=== PATIENT | female | born 1935 | race Caucasian/White ===

== ENCOUNTER 2023-04-17 11:30 | Inpatient (IN) | payer MEDICARE ==
[2023-04-17] MEDS ORDERED: ACETAMINOPHEN TAB 500 MG TAB PO STA (12:36)
[2023-04-17] MEDS ORDERED: METOPROLOL TARTRATE 5 MG/5 ML VIAL IVP STA (12:37)
[2023-04-17] MEDS ORDERED: METOPROLOL TARTRATE 50 MG TAB PO STA (12:38)
[2023-04-17] MEDS ORDERED: SODIUM CHLORIDE 0.9% 1,000 ML IV STA (12:38)
--- NOTE | 2023-04-17 12:41 | ED ---
General Adult HPI - General Chief complaint: Weakness Stated complaint: Weakness Time Seen by Provider: 04/17/23 11:35 Source: patient, EMS Mode of arrival: EMS - History of Present Illness Initial comments: Dictation was produced using Loop dictation software. please excuse any grammatical, word or spelling errors. Chief Complaint: 87-year-old male past medical history of COPD, dyslipidemia and hypertension presents to the ER for cough sugars of breath generalized weakness History of Present Illness: 87-year-old female she has past medical history of COPD, dyslipidemia hypertension. His present illness obtained from EMS along with daughters at the bedside. Patient this morning started to feel ill with coughing episodes. She is also significantly weak. Daughter states that she felt warm to the touch. Patient complaining of fever cough and generalized weakness. No obvious sick contacts. Patient has been hospitalized in the past similar issue were when she becomes ill she has these accelerations of her heart rate. EMS noticed that patient was having seconds long episodes of tachycardia and clinical to the 170s change referred back to normal sinus rhythm. Patient has no history of A. fib. The ROS documented in this emergency department record has been reviewed and confirmed by me. Those systems with pertinent positive or negative responses have been documented in the HPI. All other systems are other negative and/or noncontributory. - Related Data Home Medications Medication Instructions Recorded Confirmed Albuterol Sulfate [Albuterol 2 puff INHALATION RT-Q4H PRN 04/17/23 04/17/23 Sulfate Hfa] Alendronate Sodium [Fosamax] 70 mg PO TU 04/17/23 04/17/23 Ferrous Sulfate [Feosol] 325 mg PO MOWEFR 04/17/23 04/17/23 Fluticasone/Umeclidin/Vilanter 1 puff INHALATION RT-DAILY 04/17/23 04/17/23 [Trelegy Ellipta 100-62.5-25] Losartan Potassium 100 mg PO DAILY 04/17/23 04/17/23 Magnesium(Unknown Dose) 1 tab PO DAILY 04/17/23 04/17/23 Multivitamin [Multivitamins Adult 2 tab PO DAILY 04/17/23 04/17/23 Gummies] Omeprazole 20 mg PO DAILY 04/17/23 04/17/23 Vitamin D3(Unknown Dose) 1 tab PO DAILY 04/17/23 04/17/23 hydroCHLOROthiazide 25 mg PO DAILY 04/17/23 04/17/23 Allergies Allergy/AdvReac Type Severity Reaction Status Date / Time Penicillins Allergy Rash/Hives Verified 04/17/23 13:00 Review of Systems ROS Statement: Those systems with pertinent positive or pertinent negative responses have been documented in the HPI. ROS Other: All systems not noted in ROS Statement are negative. Past Medical History Past Medical History: COPD, Hyperlipidemia, Hypertension History of Any Multi-Drug Resistant Organisms: None Reported Past Surgical History: Tonsillectomy Smoking Status: Never smoker Past Alcohol Use History: None Reported, Occasional Past Drug Use History: None Reported General Exam - General Exam Comments Initial Comments: PHYSICAL EXAM: General Impression: Alert and oriented x3, not in acute distress HEENT: Normocephalic atraumatic, extra-ocular movements intact, pupils equal and reactive to light bilaterally, mucous membranes moist. Cardiovascular: Heart regular rate and rhythm Chest: Able to complete full sentences, no retractions, no tachypnea Abdomen: abdomen soft, non-tender, non-distended, no organomegaly Musculoskeletal: Pulses present and equal in all extremities, no peripheral edema Motor: no focal deficits noted Neurological: CN II-XII grossly intact, no focal motor or sensory deficits noted Skin: Intact with no visualized rashes Psych: Normal affect and mood Course Vital Signs 04/17/23 11:48 Temperature 99.9 F H Pulse Rate 106 H Respiratory 19 Rate Blood Pressure 149/75 Medical Decision Making - Medical Decision Making Was pt. sent in by a medical professional or institution (, PA, [facility], urgent care, hospital, or longterm...) When possible be specific @ -No Did you speak to anyone other than the patient for history (EMS, parent, family, police, friend...)? What history was obtained from this source @ -No Did you review nursing and triage notes (agree or disagree)? Why? @ -I reviewed and agree with nursing and triage notes Were old charts reviewed (outside hosp., previous admission, EMS record, old EKG, old radiological studies, urgent care reports/EKG's, longterm records)? Report findings @ -No old charts were reviewed Differential Diagnosis (chest pain, altered mental status, abdominal pain women, abdominal pain men, vaginal bleeding, musculoskeletal, weakness, fever, dyspnea, syncope, headache, dizziness, GI bleed, back pain, seizure, CVA, palpatations, mental health)? @ -Differential Dyspnea: Coronary syndrome, arrhythmia, tamponade, asthma, COPD, pulmonary embolism, pneumonia, pneumothorax, pulmonary effusion, anaphylaxis, diabetic ketoacidosis, flailed chest, pulmonary contusion, diaphragmatic rupture, anemia, neuromuscular, this is not meant to be an all-inclusive list. EKG interpreted by me (3pts min.). @ -See above X-rays interpreted by me (1pt min.). @ -Chest x-ray shows multifocal pneumonia CT interpreted by me (1pt min.). @ -None done U/S interpreted by me (1pt. min.). @ -None done What testing was considered but not performed or refused? (CT, X-rays, U/S, labs)? Why? @ -None What meds were considered but not given or refused? Why? @ -None Did you discuss the management of the patient with other professionals (professionals i.e. , PA, [facility], lab, RT, psych nurse, manager social responsibility, insight leader, teacher, plain clothes police officer, skilled nursing case manager)? Give summary @ -Case discussed with hospitalist for admission Was smoking cessation discussed for >3mins.? @ -No Was critical care preformed (if so, how long)? @ -No Were there social determinants of health that impacted care today? How? (Homelessness, low income, unemployed, alcoholism, drug addiction, transportation, low edu. Level, literacy, decrease access to med. care, correction, rehab)? @ -No Was there de-escalation of care discussed even if they declined (Discuss DNR or withdrawal of care, Hospice)? DNR status @ -No What co-morbidities impacted this encounter? (DM, HTN, Smoking, COPD, CAD, Cancer, CVA, ARF, Chemo, Hep., AIDS, mental health diagnosis, sleep apnea, morbid obesity)? @ -None Was patient admitted / discharged? Hospital course, mention meds given and route, prescriptions, significant lab abnormalities, going to OR and other pertinent info. @ -87-year-old female with past medical history of COPD presents to the ER for weakness, cough shortness of breath palpitations. Arise the EMS. Vital signs upon arrival shows low grade temperature 9.9, heart rate 106. Rest of vital signs within acceptable limits. Patient would have these episodic accelerations of heart rate into the 170s. Patient started on metoprolol with adequate rate control. Some clear if these accelerations are episodes of A. fib with RVR or SVT. Laboratory evaluation obtained leukocytosis of 19.0, metabolic panel within acceptable limits. Urinalysis is negative. Viral testing is negative. X-ray shows multilobar pneumonia. Patient started antibiotics. Will be admitted for further care monitoring. Undiagnosed new problem with uncertain prognosis? @ -No Drug Therapy requiring intensive monitoring for toxicity (Heparin, Nitro, Insulin, Cardizem)? @ -No Were any procedures done? @ -No Diagnosis/symptom? Acute, or Chronic, or Acute on Chronic? Uncomplicated (without systemic symptoms) or Complicated (systemic symptoms)? @ -Community acquired pneumonia Side effects of treatment? @ -No Exacerbation, Progression, or Severe Exacerbation? @ -No Poses a threat to life or bodily function? How? (Chest pain, USA, PR, pneumonia, PE, COPD, DKA, ARF, appy, cholecystitis, CVA, Diverticulitis, Homicidal, Suicidal, threat to staff... and all critical care pts) @ -yes - Lab Data Result diagrams: 04/17/23 13:08 04/17/23 13:08 Lab Results 04/17/23 04/17/23 04/17/23 Range/Units 13:08 13:08 13:08 WBC 19.0 H (3.8-10.6) k/uL RBC 3.91 (3.80-5.40) m/uL Hgb 11.9 (11.4-16.0) gm/dL Hct 36.1 (34.0-46.0) % MCV 92.4 (80.0-100.0) fL MCH 30.4 (25.0-35.0) pg MCHC 32.9 (31.0-37.0) g/dL RDW 12.9 (11.5-15.5) % Plt Count 139 L (150-450) k/uL MPV 8.1 Neutrophils % 93 % Lymphocytes % 2 % Monocytes % 4 % Eosinophils % 0 % Basophils % 0 % Neutrophils # 17.6 H (1.3-7.7) k/uL Lymphocytes # 0.4 L (1.0-4.8) k/uL Monocytes # 0.8 (0-1.0) k/uL Eosinophils # 0.1 (0-0.7) k/uL Basophils # 0.0 (0-0.2) k/uL Hypochromasia Slight Sodium 131 L (137-145) mmol/L Potassium 3.8 (3.5-5.1) mmol/L Chloride 99 (98-107) mmol/L Carbon Dioxide 25 (22-30) mmol/L Anion Gap 7 mmol/L BUN 18 H (7-17) mg/dL Creatinine 0.50 L (0.52-1.04) mg/dL Est GFR (CKD-EPI)AfAm >90 (>60 ml/min/1.73 sqM) Est GFR (CKD-EPI)NonAf 87 (>60 ml/min/1.73 sqM) Glucose 110 H (74-99) mg/dL Plasma Lactic Acid Jaime (0.7-2.0) mmol/L Calcium 7.6 L (8.4-10.2) mg/dL Magnesium 1.7 (1.6-2.3) mg/dL Total Bilirubin 0.6 (0.2-1.3) mg/dL AST 31 (14-36) U/L ALT 17 (4-34) U/L Alkaline Phosphatase 71 (38-126) U/L Total Protein 5.2 L (6.3-8.2) g/dL Albumin 2.9 L (3.5-5.0) g/dL Urine Color Colorless Urine Appearance Cloudy H (Clear) Urine pH 7.5 (5.0-8.0) Ur Specific [place] 1.012 (1.001-1.035) Urine Protein Negative (Negative) Urine Glucose (UA) Negative (Negative) Urine Ketones Negative (Negative) Urine Blood Trace H (Negative) Urine Nitrite Negative (Negative) Urine Bilirubin Negative (Negative) Urine Urobilinogen <2.0 (<2.0) mg/dL Ur Leukocyte Esterase Negative (Negative) Urine RBC 2 (0-5) /hpf Urine WBC 4 (0-5) /hpf Ur Squamous Epith Cells <1 (0-4) /hpf Urine Bacteria Occasional H (None) /hpf Urine Mucus Rare H (None) /hpf Influenza Type A (PCR) (Not Detectd) Influenza Type B (PCR) (Not Detectd) RSV (PCR) (Not Detectd) SARS-CoV-2 (PCR) (Not Detectd) 04/17/23 04/17/23 Range/Units 13:08 13:08 WBC (3.8-10.6) k/uL RBC (3.80-5.40) m/uL Hgb (11.4-16.0) gm/dL Hct (34.0-46.0) % MCV (80.0-100.0) fL MCH (25.0-35.0) pg MCHC (31.0-37.0) g/dL RDW (11.5-15.5) % Plt Count (150-450) k/uL MPV Neutrophils % % Lymphocytes % % Monocytes % % Eosinophils % % Basophils % % Neutrophils # (1.3-7.7) k/uL Lymphocytes # (1.0-4.8) k/uL Monocytes # (0-1.0) k/uL Eosinophils # (0-0.7) k/uL Basophils # (0-0.2) k/uL Hypochromasia Sodium (137-145) mmol/L Potassium (3.5-5.1) mmol/L Chloride (98-107) mmol/L Carbon Dioxide (22-30) mmol/L Anion Gap mmol/L BUN (7-17) mg/dL Creatinine (0.52-1.04) mg/dL Est GFR (CKD-EPI)AfAm (>60 ml/min/1.73 sqM) Est GFR (CKD-EPI)NonAf (>60 ml/min/1.73 sqM) Glucose (74-99) mg/dL Plasma Lactic Acid Jaime 0.9 (0.7-2.0) mmol/L Calcium (8.4-10.2) mg/dL Magnesium (1.6-2.3) mg/dL Total Bilirubin (0.2-1.3) mg/dL AST (14-36) U/L ALT (4-34) U/L Alkaline Phosphatase (38-126) U/L Total Protein (6.3-8.2) g/dL Albumin (3.5-5.0) g/dL Urine Color Urine Appearance (Clear) Urine pH (5.0-8.0) Ur Specific [place] (1.001-1.035) Urine Protein (Negative) Urine Glucose (UA) (Negative) Urine Ketones (Negative) Urine Blood (Negative) Urine Nitrite (Negative) Urine Bilirubin (Negative) Urine Urobilinogen (<2.0) mg/dL Ur Leukocyte Esterase (Negative) Urine RBC (0-5) /hpf Urine WBC (0-5) /hpf Ur Squamous Epith Cells (0-4) /hpf Urine Bacteria (None) /hpf Urine Mucus (None) /hpf Influenza Type A (PCR) Not Detected (Not Detectd) Influenza Type B (PCR) Not Detected (Not Detectd) RSV (PCR) Not Detected (Not Detectd) SARS-CoV-2 (PCR) Not Detected (Not Detectd) Disposition Clinical Impression: Pneumonia Disposition: ADMITTED IP TO THIS HOSP Condition: Fair Referrals: None,Stated [REFERRING] - 1-2 days Decision Time: 14:42
[2023-04-17 14:00] LABS: Basophils % (A) 0 %; Eosinophils # (A) 0.1 k/uL (0-0.7); Eosinophils % (A) 0 %; HCT 36.1 % (34.0-46.0); HGB 11.9 gm/dL (11.4-16.0); Hypochromasia Slight; Lymphocytes # (A) 0.4 k/uL (1.0-4.8); Lymphocytes % (A) 2 %; MCH 30.4 pg (25.0-35.0); MCHC 32.9 g/dL (31.0-37.0); MCV 92.4 fL (80.0-100.0); Mean Platelet Volume 8.1; Monocytes # (A) 0.8 k/uL (0-1.0); Monocytes % (A) 4 %; Neutrophils # (A) 17.6 k/uL (1.3-7.7); Neutrophils % (A) 93 %; Platelet Count 139 k/uL (150-450); RBC 3.91 m/uL (3.80-5.40); RDW 12.9 % (11.5-15.5)
[2023-04-17 14:03] LABS: Appearance,Urine Cloudy (Clear); Bacteria,Urine Occasional /hpf; Bilirubin,Urine Negative (Negative); Blood,Urine Trace (Negative); Color,Urine Colorless; Glucose,Urine (UA) Negative (Negative); Ketones,Urine Negative (Negative); Leukocyte Esterase,Urine Negative (Negative); Mucus,Urine Rare /hpf; Nitrite,Urine Negative (Negative); PH, Urine 7.5 (5.0-8.0); Protein,Urine Negative (Negative); RBC,Urine 2 /hpf (0-5); Specific Gravity,Urine 1.012 (1.001-1.035); Squamous Epithelial Cell,Urine <1 /hpf (0-4); Urobilinogen,Urine <2.0 mg/dL (<2.0); WBC,Urine 4 /hpf (0-5)
[2023-04-17 14:12] LABS: ALT 17 U/L (4-34); AST 31 U/L (14-36); African American GFR (CKD) >90 (>60 ml/min/1.73 sqM); Albumin 2.9 g/dL (3.5-5.0); Alkaline Phosphatase 71 U/L (38-126); Anion Gap 7 mmol/L; Blood Urea Nitrogen 18 mg/dL (7-17); Calcium 7.6 mg/dL (8.4-10.2); Carbon Dioxide 25 mmol/L (22-30); Chloride 99 mmol/L (98-107); Glucose 110 mg/dL (74-99); Magnesium 1.7 mg/dL (1.6-2.3); Non-African American GFR(CKD) 87 (>60 ml/min/1.73 sqM); Potassium 3.8 mmol/L (3.5-5.1); Sodium 131 mmol/L (137-145); Total Bilirubin 0.6 mg/dL (0.2-1.3); Total Protein 5.2 g/dL (6.3-8.2)
--- NOTE | 2023-04-17 14:18 | XR ---
EXAMINATION TYPE: XR chest 2V DATE OF EXAM: 04/17/2023 COMPARISON: None HISTORY: 87-year-old female with cough and weakness TECHNIQUE: AP and lateral views FINDINGS: Heart borderline enlarged. Diffuse interstitial density. Mild hyperinflation. There is a rounded retr ocardiac density. IMPRESSION: 1. COPD. Prominent interstitial densities could reflect superimposed acute bronchitis or atypical/COV ID pneumonia. Clinically correlate. 2. There appears to be an underlying moderate to large hiatal hernia.
[2023-04-17] MEDS ORDERED: AZITHROMYCIN 500 MG in SODIUM CHLORIDE 0.9% 250 ML IVPB STA (14:21)
[2023-04-17] MEDS ORDERED: cefTRIAXone IN SWFI 1,000 MG/10 ML SYRINGE IVP STA (14:21)
[2023-04-17] MEDS ORDERED: PNEUMONIA PROTOCOL UTILIZED 1 EACH MISC PO PRN (14:24)
[2023-04-17] MEDS ORDERED: ENOXAPARIN 30 MG/0.3 ML SYRINGE SQ SCH (17:15)
--- NOTE | 2023-04-17 17:55 | P.CNPUL ---
History of Present Illness Consult date: 04/17/23 Reason for consult: dyspnea, COPD History of present illness: There is an 87-year-old female patient with known history of oxygen dependent COPD with a living in [place] and she has been seeing Dr. Jac Deleon regarding her COPD and the patient will maintain on Trelegy Ellipta one inhalation daily and it'll HFA on an as-needed basis. Around 6 months ago she was hospitalized at [place] and that showed where she was treated for UTI and suspected pneumonia. The patient was given broad-spectrum antibiotics and ultimately she was discharged home. No history of any cardiac disease. She presented to us with generalized weakness, cough, congestion, shortness of breath and increased wheezing. The chest x-ray shows a hiatal hernia and increased interstitial prominence and the patient also had some leukocytosis. She was found to be feverish at home and her current temperature is 99.9. She is hemodynamically stable. No altered mentation. She is hard of hearing. In the emergency, the patient went into atrial fibrillation with rapid ventricular response. The patient was treated accordingly and her current rhythm is back into sinus with frequent PACs. She was started on IV fluids and the patient was given a liter bolus. She was started on a combination of Rocephin and Zithromax. No focal neurological deficit. No nausea or vomiting. No abdominal pain. No aspiration. Maintain on Prilosec on outpatient basis. No previous history of cardiac arrhythmias. No history of any congestion heart failure. Review of Systems Constitutional: Reports fatigue, Reports fever, Reports weakness Eyes: denies as per HPI, denies blurred vision, denies bulging eye, denies decreased vision, denies diplopia, denies discharge, denies dry eye, denies irritation, denies itching, denies pain, denies photophobia, denies loss of peripheral vision, denies loss of vision, denies tunnel vision/blind spots Ears: deny: decreased hearing, ear discharge, earache, tinnitus Ears, nose, mouth and throat: Reports as per HPI Breasts: absent: as per HPI, change in shape, gynecomastia, masses, nipple discharge, pain, skin changes, swelling Cardiovascular: Reports decreased exercise tolerance, Reports dyspnea on exertion Respiratory: Reports cough, Reports dyspnea, Reports home oxygen, Reports wheezing Gastrointestinal: Reports as per HPI Menstruation: Reports as per HPI Musculoskeletal: Reports as per HPI Musculoskeletal: absent: ankle pain, ankle stiffness, ankle swelling Integumentary: Reports as per HPI Neurological: Reports as per HPI Psychiatric: Reports as per HPI Endocrine: Reports as per HPI Hematologic/Lymphatic: Reports as per HPI Allergic/Immunologic: Reports as per HPI Past Medical History Past Medical History: COPD, Hyperlipidemia, Hypertension History of Any Multi-Drug Resistant Organisms: None Reported Past Surgical History: Tonsillectomy Smoking Status: Never smoker Past Alcohol Use History: None Reported, Occasional Past Drug Use History: None Reported Medications and Allergies Home Medications Medication Instructions Recorded Confirmed Type Albuterol Sulfate [Albuterol 2 puff INHALATION RT-Q4H PRN 04/17/23 04/17/23 History Sulfate Hfa] Alendronate Sodium [Fosamax] 70 mg PO TU 04/17/23 04/17/23 History Ferrous Sulfate [Feosol] 325 mg PO MOWEFR 04/17/23 04/17/23 History Fluticasone/Umeclidin/Vilanter 1 puff INHALATION RT-DAILY 04/17/23 04/17/23 History [Trelegy Ellipta 100-62.5-25] Losartan Potassium 100 mg PO DAILY 04/17/23 04/17/23 History Magnesium(Unknown Dose) 1 tab PO DAILY 04/17/23 04/17/23 History Multivitamin [Multivitamins Adult 2 tab PO DAILY 04/17/23 04/17/23 History Gummies] Omeprazole 20 mg PO DAILY 04/17/23 04/17/23 History Vitamin D3(Unknown Dose) 1 tab PO DAILY 04/17/23 04/17/23 History hydroCHLOROthiazide 25 mg PO DAILY 04/17/23 04/17/23 History Allergies Allergy/AdvReac Type Severity Reaction Status Date / Time Penicillins Allergy Rash/Hives Verified 04/17/23 13:00 Physical Exam Vitals: Vital Signs Temp Pulse Resp BP 04/17/23 11:48 99.9 F H 106 H 19 149/75 Intake and Output 04/17/23 04/17/23 04/17/23 06:59 14:59 22:59 Other: Weight 65.771 kg Obese, calm and comfortable not acute distress, currently on 2 L of oxygen by nasal cannula Head exam was generally normal. There was no scleral icterus or corneal arcus. Mucous membranes were moist. Neck was supple and without jugular venous distension, thyromegaly, or carotid bruits. Carotids were easily palpable bilaterally. There was no adenopathy. Lungs sounds are diminished bilaterally along with scattered expiratory wheezes throughout the lung wright and the breath sounds are quite diminished in lung bases bilaterally Cardiac exam revealed the PMI to be normally situated and sized. The rhythm was regular and no extrasystoles were noted during several minutes of auscultation. The first and second heart sounds were normal and physiologic splitting of the second heart sound was noted. There were no murmurs, rubs, clicks, or gallops. Abdominal exam revealed normal bowel sounds. The abdomen was soft, non-tender, and without masses, organomegaly, or appreciable enlargement of the abdominal aorta. Examination of the extremities revealed easily palpable radial, femoral and pedal pulses. There was no cyanosis, clubbing or edema. Examination of the skin revealed no evidence of significant rashes, suspicious appearing nevi or other concerning lesions. Results - Laboratory Findings CBC and BMP: 04/17/23 13:08 04/17/23 13:08 Abnormal lab findings: Abnormal Labs 04/17/23 04/17/23 04/17/23 13:08 13:08 13:08 WBC 19.0 H Plt Count 139 L Neutrophils # 17.6 H Lymphocytes # 0.4 L Sodium 131 L BUN 18 H Creatinine 0.50 L Glucose 110 H Calcium 7.6 L Total Protein 5.2 L Albumin 2.9 L Urine Appearance Cloudy H Urine Blood Trace H Urine Bacteria Occasional H Urine Mucus Rare H - Diagnostic Findings Chest x-ray: image reviewed Assessment and Plan Plan: Acute exacerbation of COPD with secondary shortness of breath. Rule out atypical pneumonia. Rule out tracheobronchitis. The viral screening was negative. Chest x-ray revealing a hiatal hernia. No consolidation or airspace disease Advanced COPD with chronic hypoxic respiratory failure maintained on O2, also maintain on Trelegy Ellipta on outpatient basis Low-grade fever currently under investigation Leukocytosis, on that investigation Paroxysmal A. fib, current rhythm is sinus Obesity Hypertension Hyperlipidemia Plan Check pro calcitonin level Check pro BNP level Check troponins Check echocardiogram Agree on Rocephin and Zithromax We'll start the patient on DuoNeb the blood treatments [id number] and IV Solu-Medrol 60 mg every 6 hours Lovenox 40 prophylaxis Titrate oxygen flow to maintain a saturation above 90% We'll continue to follow
[2023-04-17] MEDS: IPRATROPIUM-ALBUTEROL 3 ML NEB INHALATION SCH (20:08)
[2023-04-17] MEDS: ENOXAPARIN 40 MG/0.4 ML SYRINGE SQ SCH (20:28)
[2023-04-17] MEDS: methylPREDNISolone SOD SUCCI 125 MG/2 ML VIAL IV SCH ×2 (20:29→23:59)
[2023-04-18] MEDS: methylPREDNISolone SOD SUCCI 125 MG/2 ML VIAL IV SCH ×4 (05:52→23:31)
[2023-04-18] MEDS: IPRATROPIUM-ALBUTEROL 3 ML NEB INHALATION SCH ×4 (07:57→21:00)
[2023-04-18] MEDS ORDERED: NON FORMULARY DRUG (Fluticasone/Umeclidin/Vilanter [Trelegy Ellipta 100-62.5-25] 1 EACH Bl INHALATION SCH (08:00)
--- NOTE | 2023-04-18 09:04 | XR ---
EXAMINATION TYPE: XR chest 1V portable DATE OF EXAM: 04/18/2023 Comparison: 04/17/2023 Clinical History: 87-year-old female follow-up pneumonia Findings: Heart mildly enlarged. Underlying dextro convex scoliosis thoracolumbar junction. Rounded retrocardia c density suggesting at least a moderate-sized hiatal hernia. Hyperinflation with mild interstitial d ensity. Persistent patchy peripheral bibasilar opacities. Impression: 1. COPD, scoliosis, borderline to mild cardiomegaly, underlying hiatal hernia at least moderate in si ze, similar interstitial changes. 2. The interstitial changes are overall less pronounced but the focal patchy bibasilar infiltrates ar e more pronounced.
[2023-04-18] MEDS: METOPROLOL TARTRATE 25 MG TAB PO SCH ×2 (09:10→21:13)
[2023-04-18] MEDS: ENOXAPARIN 40 MG/0.4 ML SYRINGE SQ SCH (09:10)
--- NOTE | 2023-04-18 11:04 | P.CRDCN ---
History of Present Illness History of present illness: HISTORY OF PRESENT ILLNESS: This is a 87-year-old female with a past medical history significant for hypertension. Patient does not follow with a advanced practice registered nurse. We have been asked to see the patient in consultation for arrhythmia. Patient examined at the bedside. Patient presented to the hospital with a chief complaint of shortness of breath. She states she's been feeling short of breath for the past few days. She denies any chest pain or pressure. She denies any palpitations. According to the ER note, the patient was found to be tachycardic in route to the hospital with a heart rate in the 170s. There are no telemetry tracings available for review and no EKG completed at the time of evaluation. It is unknown what type of arrhythmia the patient was having at that time. The patient denies any history of arrhythmias including atrial fibrillation. She is maintaining sinus mechanism at the time of examination. * Chest xray COPD, scoliosis, borderline to mild cardiomegaly, hiatal hernia at least moderate in size, similar interstitial changes. Interstitial changes are overall less pronounced but the focal patchy bibasilar infiltrates are more pronounced. * Laboratory data: W BC 19.0. ProBNP 1460. Troponin 0.063. * Current home cardiac medications include losartan 100 mg daily and hydrochlorothiazide 25 mg daily * No previous echocardiogram available for review REVIEW OF SYSTEMS: At the time of my exam: CONSTITUTIONAL: Denies fever or chills. HEENT: Denies blurred vision, vision changes, or eye pain. Denies hemoptysis CARDIOVASCULAR: Denies chest pain. Denies orthopnea. Denies PND. Denies palpitations RESPIRATORY: Denies shortness of breath. GASTROINTESTINAL: Denies abdominal pain. Denies nausea or vomiting. HEMATOLOGIC: Denies bleeding disorders. GENITOURINARY: Denies any blood in urine. SKIN: Denies pruitis. Denies rash. PHYSICAL EXAM: VITAL SIGNS: Reviewed. GENERAL: Well-developed in no acute distress. HEENT: Head is normocephalic. Pupils are equal, round. Sclerae anicteric. Mucous membranes of the mouth are moist. Neck supple. No JVD or thyromegaly LUNGS: Respirations even and unlabored. Lungs essentially clear to auscultation bilaterally. HEART: Regular rate and rhythm. S1 and S2 heard. ABDOMEN: Soft. Nondistended. Nontender. EXTREMITIES: Normal range of motion. No clubbing or cyanosis. Peripheral pulses intact. No lower extremity edema NEUROLOGIC: Awake and alert. Oriented x 3. ASSESSMENT: Shortness of breath Acute exacerbation of COPD Chronic hypoxic respiratory failure on home oxygen Possible pneumonia Leukocytosis with low-grade fever Tachycardia, unclear of rhythm as no telemetry tracings or EKG are available for review, patient denies history of atrial fibrillation Abnormal troponin, no evidence of acute coronary syndrome, may be secondary to type II ID secondary to oxygen supply demand mismatch Hypertension PLAN: Obtain 2-D echo to assess cardiac structure and function Obtain EKG Continue telemetry monitoring to assess for any arrhythmias. Patient currently in sinus mechanism. Patient denies a history of atrial fibrillation. Begin metoprolol tartrate 25 mg twice a day Further recommendations pending patient's course Nurse practitioner note has been reviewed by physician. Signing provider agrees with the documented findings, assessment, and plan of care. Past Medical History Past Medical History: COPD, Hyperlipidemia, Hypertension History of Any Multi-Drug Resistant Organisms: None Reported Past Surgical History: Tonsillectomy Past Anesthesia/Blood Transfusion Reactions: No Reported Reaction Past Psychological History: No Psychological Hx Reported Smoking Status: Former smoker Past Alcohol Use History: Occasional Past Drug Use History: None Reported Medications and Allergies Home Medications Medication Instructions Recorded Confirmed Type Albuterol Sulfate [Albuterol 2 puff INHALATION RT-Q4H PRN 04/17/23 04/17/23 History Sulfate Hfa] Alendronate Sodium [Fosamax] 70 mg PO TU 04/17/23 04/17/23 History Ferrous Sulfate [Feosol] 325 mg PO MOWEFR 04/17/23 04/17/23 History Fluticasone/Umeclidin/Vilanter 1 puff INHALATION RT-DAILY 04/17/23 04/17/23 History [Trelegy Ellipta 100-62.5-25] Losartan Potassium 100 mg PO DAILY 04/17/23 04/17/23 History Magnesium(Unknown Dose) 1 tab PO DAILY 04/17/23 04/17/23 History Multivitamin [Multivitamins Adult 2 tab PO DAILY 04/17/23 04/17/23 History Gummies] Omeprazole 20 mg PO DAILY 04/17/23 04/17/23 History Vitamin D3(Unknown Dose) 1 tab PO DAILY 04/17/23 04/17/23 History hydroCHLOROthiazide 25 mg PO DAILY 04/17/23 04/17/23 History Allergies Allergy/AdvReac Type Severity Reaction Status Date / Time Penicillins Allergy Rash/Hives Verified 04/17/23 13:00 Physical Exam Vitals: Vital Signs Temp Pulse Pulse Resp BP BP Pulse Ox 04/18/23 09:05 97.8 F 85 18 114/71 96 04/18/23 08:18 76 04/18/23 07:58 72 04/18/23 04:00 98.6 F 80 16 107/85 99 04/18/23 00:00 98.7 F 88 16 138/81 95 04/17/23 23:00 99.0 F 98 20 136/74 95 04/17/23 20:19 88 04/17/23 20:08 90 04/17/23 20:00 94 20 139/78 96 04/17/23 11:48 99.9 F H 106 H 19 149/75 Intake and Output 04/17/23 04/18/23 04/18/23 22:59 06:59 14:59 Intake Total 540 178 Output Total 400 350 Balance 140 -172 Intake: IV 10 Invasive Line 1 10 Intake, IV Titration 50 Amount cefTRIAXone 2 gm In 50 Sodium Chloride 0.9% 50 ml @ 100 mls/hr IVPB Q24HR [facility] Rx#:[id number] Oral 540 118 Output: Urine 400 350 Other: Voiding Method Bedside Commode Bedside Commode # Voids 1 1 Weight 62 kg Results 04/17/23 13:08 04/17/23 13:08 Cardiac Enzymes 04/17/23 04/17/23 Range/Units 13:08 17:21 AST 31 (14-36) U/L Troponin I 0.063 H* (0.000-0.034) ng/mL CBC 04/17/23 Range/Units 13:08 WBC 19.0 H (3.8-10.6) k/uL RBC 3.91 (3.80-5.40) m/uL Hgb 11.9 (11.4-16.0) gm/dL Hct 36.1 (34.0-46.0) % Plt Count 139 L (150-450) k/uL Comprehensive Metabolic Panel 04/17/23 Range/Units 13:08 Sodium 131 L (137-145) mmol/L Potassium 3.8 (3.5-5.1) mmol/L Chloride 99 (98-107) mmol/L Carbon Dioxide 25 (22-30) mmol/L BUN 18 H (7-17) mg/dL Creatinine 0.50 L (0.52-1.04) mg/dL Glucose 110 H (74-99) mg/dL Calcium 7.6 L (8.4-10.2) mg/dL AST 31 (14-36) U/L ALT 17 (4-34) U/L Alkaline Phosphatase 71 (38-126) U/L Total Protein 5.2 L (6.3-8.2) g/dL Albumin 2.9 L (3.5-5.0) g/dL Current Medications Generic Name Dose Route Start Last Admin Trade Name Freq PRN Reason Stop Dose Admin Albuterol/Ipratropium 3 ml 04/17/23 20:00 04/18/23 07:57 Ipratropium-Albuterol 3 Ml Neb INHALATION 3 ml RT-QID JENISE Administration Azithromycin 500 mg 04/18/23 14:00 Azithromycin 500 Mg Tab PO 04/19/23 14:01 DAILY@1400 JENISE Protocol Enoxaparin Sodium 40 mg 04/17/23 18:45 04/18/23 09:10 Enoxaparin 40 Mg/0.4 Ml Syringe SQ 40 mg DAILY JENISE Administration Ceftriaxone Sodium 2 gm/ 50 mls @ 100 mls/hr 04/18/23 09:00 04/18/23 09:09 Sodium Chloride IVPB 04/21/23 09:29 100 mls/hr Q24HR JENISE Administration Protocol Methylprednisolone Sodium Succinate 60 mg 04/17/23 18:00 04/18/23 05:52 Methylprednisolone Sod Succi 125 Mg/2 Ml Vial IV 60 mg Q6HR JENISE Administration Metoprolol Tartrate 25 mg 04/18/23 09:00 04/18/23 09:10 Metoprolol Tartrate 25 Mg Tab PO 25 mg BID JENISE Administration Miscellaneous Information 1 each 04/17/23 14:24 Pneumonia Protocol Utilized 1 Each Misc PO ONCE PRN Per Protocol Intake and Output 04/17/23 04/18/23 04/18/23 22:59 06:59 14:59 Intake Total 540 178 Output Total 400 350 Balance 140 -172 Intake: IV 10 Invasive Line 1 10 Intake, IV Titration 50 Amount cefTRIAXone 2 gm In 50 Sodium Chloride 0.9% 50 ml @ 100 mls/hr IVPB Q24HR [facility] Rx#:[id number] Oral 540 118 Output: Urine 400 350 Other: Voiding Method Bedside Commode Bedside Commode # Voids 1 1 Weight 62 kg 04/17/23 13:08 04/17/23 13:08
[2023-04-18] MEDS: LOSARTAN 50 MG TAB PO SCH (11:07)
[2023-04-18] MEDS: AZITHROMYCIN 500 MG TAB PO SCH (11:07)
[2023-04-18] MEDS: MULTIVITAMINS, THERA 1 EACH TAB PO SCH (11:07)
[2023-04-18] MEDS: FERROUS SULFATE 325 MG TAB PO SCH (11:07)
[2023-04-18] MEDS: PANTOPRAZOLE 40 MG TABLET PO SCH (11:11)
--- NOTE | 2023-04-18 11:49 | CA ---
Transthoracic Echo Report Name: Joan Farmer Age: 87 Gender: F : 1935 Exam Date: 04/18/2023 08:11 Exam Location: [facility] Ht (in): 57 Wt (lb): 145 Ordering Physician: Emma Cuello MD Attending/Referring Phys: Reclamation Supervisor Tran Dockery [facility] Procedure CPT: Indications: chf Cardiac Hx: Technical Quality: Fair Contrast 1: Total Dose (mL): Contrast 2: Total Dose (mL): MEASUREMENTS (Male / Female) Normal Values 2D ECHO LV Diastolic Diameter PLAX 4.5 cm 4.2 - 5.9 / 3.9 - 5.3 cm LV Systolic Diameter PLAX 2.7 cm IVS Diastolic Thickness 0.8 cm 0.6 - 1.0 / 0.6 - 0.9 cm LVPW Diastolic Thickness 0.9 cm 0.6 - 1.0 / 0.6 - 0.9 cm LV Relative Wall Thickness 0.4 LVOT Diameter 2.0 cm Ascending Aorta Diameter 3.6 cm M-MODE Aortic Root Diameter MM 2.3 cm LA Systolic Diameter MM 4.7 cm LA Ao Ratio MM 2.0 AV Cusp Separation MM 1.2 cm DOPPLER AV Peak Velocity 188.1 cm/s AV Peak Gradient 14.2 mmHg AV Mean Velocity 120.8 cm/s AV Mean Gradient 7.0 mmHg AV Velocity Time Integral 34.0 cm LVOT Peak Velocity 142.6 cm/s LVOT Peak Gradient 8.1 mmHg LVOT Velocity Time Integral 28.1 cm LVOT Stroke Volume 87.3 cm??? LVOT Stroke Volume Index 55.7 ml/m??? LVOT Cardiac Index 4797.0 cm???/min???m??? AV Area Cont Eq vti 2.6 cm??? AV Area Cont Eq pk 2.4 cm??? Mitral E Point Velocity 105.8 cm/s Mitral A Point Velocity 76.7 cm/s Mitral E to A Ratio 1.4 MV Deceleration Time 198.6 ms LV E' Lateral Velocity 4.6 cm/s Mitral E to LV E' Lateral Ratio 22.8 LV E' Septal Velocity 5.1 cm/s Mitral E to LV E' Septal Ratio 20.8 TR Peak Velocity 278.6 cm/s TR Peak Gradient 31.0 mmHg Right Atrial Pressure 15.0 mmHg Pulmonary Artery Systolic Pressu 46.0 mmHg Right Ventricular Systolic Press 46.0 mmHg FINDINGS Left Ventricle Left ventricular wall thickness normal. Left ventricular cavity size normal. Normal left ventricular systolic function with no obvious regional wall motion abnormalities. Left ventricular ejection fraction is estimated at 60-65%. Right Ventricle Normal right ventricular size and function. Moderate pulmonary hypertension. Right Atrium Moderate right atrial dilatation. Left Atrium Moderate left atrial dilatation. Mitral Valve Mitral valve thickened. Mitral annular calcification. Moderate mitral regurgitation. Aortic Valve Trileaflet aortic valve. Aortic valve sclerosis. No aortic regurgitation. Tricuspid Valve Structurally normal tricuspid valve. Moderate tricuspid regurgitation. Pulmonic Valve Structurally normal pulmonic valve. Trace pulmonic regurgitation. Pericardium Minimal pericardial effusion (normal variant). Aorta Normal size aortic root and proximal ascending aorta. CONCLUSIONS Left ventricular ejection fraction 60-65% Mild to moderate mitral regurgitation Mild mitral aortic calcification Moderate tricuspid regurgitation 2.9 x 1.4 cm echodensity noted in the IVC/right atrial junction. Possible artifact versus mass. Consider BUBBA or CTA if clinically indicated. Previewed by: Dr. Rosendo Chin DO (Electronically Signed) Final Date: 18 April 2023 11:48
[2023-04-18] MEDS: SYMBICORT 80-4.5 MCG INHALER INHALATION SCH ×2 (11:50→21:00)
--- NOTE | 2023-04-18 16:14 | P.PN ---
Subjective Progress Note Date: 04/18/23 There is an 87-year-old female patient with known history of oxygen dependent COPD with a living in [place] and she has been seeing Dr. Jac Deleon regarding her COPD and the patient will maintain on Trelegy Ellipta one inhalation daily and it'll HFA on an as-needed basis. Around 6 months ago she was hospitalized at [facility] and that showed where she was treated for UTI and suspected pneumonia. The patient was given broad-spectrum antibiotics and ultimately she was discharged home. No history of any cardiac disease. She presented to us with generalized weakness, cough, congestion, shortness of breath and increased wheezing. The chest x-ray shows a hiatal hernia and increased interstitial prominence and the patient also had some leukocytosis. She was found to be feverish at home and her current temperature is 99.9. She is hemodynamically stable. No altered mentation. She is hard of hearing. In the emergency, the patient went into atrial fibrillation with rapid ventricular response. The patient was treated accordingly and her current rhythm is back into sinus with frequent PACs. She was started on IV fluids and the patient was given a liter bolus. She was started on a combination of Rocephin and Zithromax. No focal neurological deficit. No nausea or vomiting. No abdominal pain. No aspiration. Maintain on Prilosec on outpatient basis. No previous history of cardiac arrhythmias. No history of any congestion heart failure. On today's evaluation of 04/18/2020, the patient is feeling much better compared to yesterday. The patient is less spastic and wheezing. No significant shortness of breath. Remains on antibiotics. Remains on steroids. Remains on bronchodilators. No change in the mental status. No other new complaints otherwise for now. ProBNP level was 1460. Troponin was at 0.06. UA was negative. Objective - Vital Signs Vital signs: Vital Signs Temp 97.2 F L 04/18/23 11:09 Pulse 72 04/18/23 11:59 Resp 18 04/18/23 11:09 BP 117/69 04/18/23 11:09 Pulse Ox 99 04/18/23 11:09 FiO2 Intake & Output 04/17/23 04/18/23 04/18/23 18:59 06:59 18:59 Intake Total 540 178 Output Total 400 350 Balance 140 -172 Weight 65.771 kg 62 kg Intake: IV 10 Invasive Line 1 10 Intake, IV Titration 50 Amount cefTRIAXone 2 gm In 50 Sodium Chloride 0.9% 50 ml @ 100 mls/hr IVPB Q24HR [facility] Rx#:[id number] Oral 540 118 Output: Urine 400 350 Other: Voiding Method Bedside Commode Bedside Commode # Voids 1 1 - Exam Obese, calm and comfortable not acute distress, currently on 2 L of oxygen by nasal cannula Head exam was generally normal. There was no scleral icterus or corneal arcus. Mucous membranes were moist. Neck was supple and without jugular venous distension, thyromegaly, or carotid bruits. Carotids were easily palpable bilaterally. There was no adenopathy. Lungs sounds are diminished bilaterally along with scattered expiratory wheezes throughout the lung wright and the breath sounds are quite diminished in lung bases bilaterally Cardiac exam revealed the PMI to be normally situated and sized. The rhythm was regular and no extrasystoles were noted during several minutes of auscultation. The first and second heart sounds were normal and physiologic splitting of the second heart sound was noted. There were no murmurs, rubs, clicks, or gallops. Abdominal exam revealed normal bowel sounds. The abdomen was soft, non-tender, and without masses, organomegaly, or appreciable enlargement of the abdominal aorta. Examination of the extremities revealed easily palpable radial, femoral and pedal pulses. There was no cyanosis, clubbing or edema. Examination of the skin revealed no evidence of significant rashes, suspicious appearing nevi or other concerning lesions. - Labs CBC & Chem 7: 04/17/23 13:08 04/17/23 13:08 Labs: Abnormal Lab Results - Last 24 Hours (Table) 04/17/23 04/17/23 04/17/23 Range/Units 13:08 13:08 13:08 WBC 19.0 H (3.8-10.6) k/uL Plt Count 139 L (150-450) k/uL Neutrophils # 17.6 H (1.3-7.7) k/uL Lymphocytes # 0.4 L (1.0-4.8) k/uL Sodium 131 L (137-145) mmol/L BUN 18 H (7-17) mg/dL Creatinine 0.50 L (0.52-1.04) mg/dL Glucose 110 H (74-99) mg/dL Calcium 7.6 L (8.4-10.2) mg/dL Troponin I (0.000-0.034) ng/mL Total Protein 5.2 L (6.3-8.2) g/dL Albumin 2.9 L (3.5-5.0) g/dL Urine Appearance Cloudy H (Clear) Urine Blood Trace H (Negative) Urine Bacteria Occasional H (None) /hpf Urine Mucus Rare H (None) /hpf 04/17/23 Range/Units 17:21 WBC (3.8-10.6) k/uL Plt Count (150-450) k/uL Neutrophils # (1.3-7.7) k/uL Lymphocytes # (1.0-4.8) k/uL Sodium (137-145) mmol/L BUN (7-17) mg/dL Creatinine (0.52-1.04) mg/dL Glucose (74-99) mg/dL Calcium (8.4-10.2) mg/dL Troponin I 0.063 H* (0.000-0.034) ng/mL Total Protein (6.3-8.2) g/dL Albumin (3.5-5.0) g/dL Urine Appearance (Clear) Urine Blood (Negative) Urine Bacteria (None) /hpf Urine Mucus (None) /hpf Assessment and Plan Plan: Acute exacerbation of COPD with secondary shortness of breath. Rule out atypical pneumonia. Rule out tracheobronchitis. The viral screening was negative. Chest x-ray revealing a hiatal hernia. No consolidation or airspace disease Advanced COPD with chronic hypoxic respiratory failure maintained on O2, also maintain on Trelegy Ellipta on outpatient basis Low-grade fever currently under investigation Leukocytosis, on that investigation Paroxysmal A. fib, current rhythm is sinus Obesity Hypertension Hyperlipidemia Plan Check pro calcitonin level was low at 0.05 Check pro BNP level, mildly elevated Check troponins Check echocardiogram, showed a preserved LV function and there was a shadow m easuring 2.9 cm and IVC RA junction possibly an artifact versus a mass. BUBBA will be considered Agree on Rocephin and Zithromax, this will be continued Keep the patient on DuoNeb the blood treatments [id number] and IV Solu- Medrol 60 mg every 6 hours Lovenox 40 prophylaxis Titrate oxygen flow to maintain a saturation above 90% We'll continue to follow We'll start tapering steroids as of tomorrow We'll continue to follow
--- NOTE | 2023-04-18 18:25 | P.HPIM ---
History of Present Illness H&P Date: 04/18/23 Chief Complaint: Increasing cough This is a 87-year-old patient who follows with Dr. Jennifer Martin. At the bedside as pressures patient's daughter. Patient lives with her and her son-in-law. Patient presents with significant increased wheezing and coughing for 1 day. Does have some cough and a baseline. Feeling rather cold. Also some edema. Decreased appetite yesterday. Has 2 L a walker and at home. Gets easily short winded. She was long-term exposed to secondhand smoke. Does use a walker at baseline. Review of systems: GEN.: Tired EYES: None HEENT: None NECK: None RESPIRATORY: As above CARDIOVASCULAR: None GASTROINTESTINAL: None GENITOURINARY: None MUSCULOSKELETAL: Joint pains LYMPHATICS: None HEMATOLOGICAL: None PSYCHIATRY: None NEUROLOGICAL: Walker Social history: Lives with her daughter and son-in-law. Long-term exposure to secondhand smoke. Alcohol occasionally. Physical examination: VITAL SIGNS: 99.9, 106, 19, 149 T 75, 96% on 2 L upon presentation GENERAL: BMI 29.6, sitting up in bed awake a bit tired. EYES: Pupils equal. Conjunctiva normal. HEENT: External appearance of nose and ears normal, oral cavity grossly normal. NECK: JVD not raised; masses not palpable. HEART: First and second heart sounds are normal; no edema. LUNGS: Respiratory rate increased; please breath sounds and wheezing. ABDOMEN: Soft, nontender, liver spleen not palpable, no masses palpable. PSYCH: Alert and oriented x3; mood and affect normal. MUSCULOSKELETAL:No Clubbing/cyanosis;muscles-grossly intact. OA NEUROLOGICAL: Cranial nerves grossly intact; no facial asymmetry, power and sensation grossly intact. LYMPHATICS: No lymph nodes palpable in the axilla and neck INVESTIGATIONS, reviewed in the clinical context: 2-D echocardiogram: EF 60-65%. Moderate pulmonary hypertension.. Moderate mitral and tricuspid regurgitation. 2.9 x 1.4 cm echodensity noted in the IVC right atrial junction. Artifact versus mass. White count 19 hemoglobin 11.9 platelets 139 sodium 131 potassium 3.8 BUN 18 creatinine 0.50 Troponin I 0.063 ProBNP 1460 procalcitonin 0.05 Influenza type A, type B, RSV, COVID-19: Not detected EKG tracing personally reviewed by me-normal sinus rhythm. Some flipped T waves in inferolateral leads Chest x-ray film personally reviewed by me-possible infiltrate Assessment and plan: -Acute COPD exacerbation in a patient with long exposure to secondhand smoking. Possibly precipitated by viral bronchitis DuoNeb. IV Solu-Medrol. Symbicort -GERD Omeprazole -Essential hypertension Losartan 100 mg a day -Chronic gait dysfunction uses a walker at baseline -Chronic hypoxic respiratory failure from her legs COPD 2 L of oxygen at home -Troponin leak likely from hemodynamic mismatch. No clinical evidence of ACS. Cardiology consulted -2.9 x 1.4 cm echodensity at the IVC/right atrial junction. Artifact versus mass. Cardiology consulted -Full code Care was discussed length with the daughter the bedside. Questions answered. Past Medical History Past Medical History: COPD, Hyperlipidemia, Hypertension History of Any Multi-Drug Resistant Organisms: None Reported Past Surgical History: Tonsillectomy Past Anesthesia/Blood Transfusion Reactions: No Reported Reaction Past Psychological History: No Psychological Hx Reported Smoking Status: Former smoker Past Alcohol Use History: Occasional Past Drug Use History: None Reported Medications and Allergies Home Medications Medication Instructions Recorded Confirmed Type Albuterol Sulfate [Albuterol 2 puff INHALATION RT-Q4H PRN 04/17/23 04/17/23 History Sulfate Hfa] Alendronate Sodium [Fosamax] 70 mg PO TU 04/17/23 04/17/23 History Ferrous Sulfate [Feosol] 325 mg PO MOWEFR 04/17/23 04/17/23 History Fluticasone/Umeclidin/Vilanter 1 puff INHALATION RT-DAILY 04/17/23 04/17/23 Hi story [Treleenrrique Ellipta 100-62.5-25] Losartan Potassium 100 mg PO DAILY 04/17/23 04/17/23 History Magnesium(Unknown Dose) 1 tab PO DAILY 04/17/23 04/17/23 History Multivitamin [Multivitamins Adult 2 tab PO DAILY 04/17/23 04/17/23 History Gummies] Omeprazole 20 mg PO DAILY 04/17/23 04/17/23 History Vitamin D3(Unknown Dose) 1 tab PO DAILY 04/17/23 04/17/23 History hydroCHLOROthiazide 25 mg PO DAILY 04/17/23 04/17/23 History Allergies Allergy/AdvReac Type Severity Reaction Status Date / Time Penicillins Allergy Rash/Hives Verified 12/28/23 13:00 Physical Exam Vitals: Vital Signs Temp Pulse Pulse Resp BP BP Pulse Ox 04/18/23 09:05 97.8 F 85 18 114/71 96 04/18/23 08:18 76 04/18/23 07:58 72 04/18/23 04:00 98.6 F 80 16 107/85 99 04/18/23 00:00 98.7 F 88 16 138/81 95 04/17/23 23:00 99.0 F 98 20 136/74 95 04/17/23 20:19 88 04/17/23 20:08 90 04/17/23 20:00 94 20 139/78 96 04/17/23 11:48 99.9 F H 106 H 19 149/75 Intake and Output 04/17/23 04/18/23 04/18/23 22:59 06:59 14:59 Intake Total 540 178 Output Total 400 350 Balance 140 -172 Intake: IV 10 Invasive Line 1 10 Intake, IV Titration 50 Amount cefTRIAXone 2 gm In 50 Sodium Chloride 0.9% 50 ml @ 100 mls/hr IVPB Q24HR [facility] Rx#:[id number] Oral 540 118 Output: Urine 400 350 Other: Voiding Method Bedside Commode Bedside Commode # Voids 1 1 Weight 62 kg Results CBC & Chem 7: 04/17/23 13:08 04/17/23 13:08 Labs: Abnormal Lab Results - Last 24 Hours (Table) 04/17/23 04/17/23 04/17/23 Range/Units 13:08 13:08 13:08 WBC 19.0 H (3.8-10.6) k/uL Plt Count 139 L (150-450) k/uL Neutrophils # 17.6 H (1.3-7.7) k/uL Lymphocytes # 0.4 L (1.0-4.8) k/uL Sodium 131 L (137-145) mmol/L BUN 18 H (7-17) mg/dL Creatinine 0.50 L (0.52-1.04) mg/dL Glucose 110 H (74-99) mg/dL Calcium 7.6 L (8.4-10.2) mg/dL Troponin I (0.000-0.034) ng/mL Total Protein 5.2 L (6.3-8.2) g/dL Albumin 2.9 L (3.5-5.0) g/dL Urine Appearance Cloudy H (Clear) Urine Blood Trace H (Negative) Urine Bacteria Occasional H (None) /hpf Urine Mucus Rare H (None) /hpf 04/17/23 Range/Units 17:21 WBC (3.8-10.6) k/uL Plt Count (150-450) k/uL Neutrophils # (1.3-7.7) k/uL Lymphocytes # (1.0-4.8) k/uL Sodium (137-145) mmol/L BUN (7-17) mg/dL Creatinine (0.52-1.04) mg/dL Glucose (74-99) mg/dL Calcium (8.4-10.2) mg/dL Troponin I 0.063 H* (0.000-0.034) ng/mL Total Protein (6.3-8.2) g/dL Albumin (3.5-5.0) g/dL Urine Appearance (Clear) Urine Blood (Negative) Urine Bacteria (None) /hpf Urine Mucus (None) /hpf Thrombosis Risk Factor Assmnt - Choose All That Apply Each Factor Represents 1 point: Abnormal pulmonary function (COPD) Other Risk Factors: No Other congenital or acquired thrombophilia - If yes, enter type in comment: No Thrombosis Risk Factor Assessment Total Risk Factor Score: 1 Thrombosis Risk Factor Assessment Level: Low Risk
[2023-04-19] MEDS: methylPREDNISolone SOD SUCCI 125 MG/2 ML VIAL IV SCH ×4 (05:42→23:37)
[2023-04-19] MEDS: MULTIVITAMINS, THERA 1 EACH TAB PO SCH (08:25)
[2023-04-19] MEDS: LOSARTAN 50 MG TAB PO SCH (08:26)
[2023-04-19] MEDS: METOPROLOL TARTRATE 25 MG TAB PO SCH ×2 (08:26→19:49)
[2023-04-19] MEDS: PANTOPRAZOLE 40 MG TABLET PO SCH (08:26)
[2023-04-19] MEDS: ENOXAPARIN 40 MG/0.4 ML SYRINGE SQ SCH (08:26)
[2023-04-19] MEDS: IPRATROPIUM-ALBUTEROL 3 ML NEB INHALATION SCH ×4 (09:47→21:35)
[2023-04-19] MEDS: SYMBICORT 80-4.5 MCG INHALER INHALATION SCH ×2 (09:47→21:35)
[2023-04-19] MEDS: AZITHROMYCIN 500 MG TAB PO SCH (12:10)
--- NOTE | 2023-04-19 12:16 | P.PN ---
Subjective Progress Note Date: 04/19/23 There is an 87-year-old female patient with known history of oxygen dependent COPD with a living in [place] and she has been seeing Dr. Jac Deleon regarding her COPD and the patient will maintain on Trelegy Ellipta one inhalation daily and it'll HFA on an as-needed basis. Around 6 months ago she was hospitalized at [facility] and that showed where she was treated for UTI and suspected pneumonia. The patient was given broad-spectrum antibiotics and ultimately she was discharged home. No history of any cardiac disease. She presented to us with generalized weakness, cough, congestion, shortness of breath and increased wheezing. The chest x-ray shows a hiatal hernia and increased interstitial prominence and the patient also had some leukocytosis. She was found to be feverish at home and her current temperature is 99.9. She is hemodynamically stable. No altered mentation. She is hard of hearing. In the emergency, the patient went into atrial fibrillation with rapid ventricular response. The patient was treated accordingly and her current rhythm is back into sinus with frequent PACs. She was started on IV fluids and the patient was given a liter bolus. She was started on a combination of Rocephin and Zithromax. No focal neurological deficit. No nausea or vomiting. No abdominal pain. No aspiration. Maintain on Prilosec on outpatient basis. No previous history of cardiac arrhythmias. No history of any congestion heart failure. On today's evaluation of 04/18/2020, the patient is feeling much better compared to yesterday. The patient is less spastic and wheezing. No significant shortness of breath. Remains on antibiotics. Remains on steroids. Remains on bronchodilators. No change in the mental status. No other new complaints otherwise for now. ProBNP level was 1460. Troponin was at 0.06. UA was negative. On today's evaluation of 04/19/2023, the patient still having some limited congestive cough. Decided to proceed with antibiotics for another 24-48 hours. Decided to continue the IV Solu-Medrol. She remains on oxygen 2 L/m nasal cannula. No chest pain. No interval worsening shortness of breath. No new labs are available from today. No other complaints otherwise. The echo of the heart was completed and the patient has a preserved LV function. As mentioned, there was a structure measuring 2.9 cm and the IVC/RA junction. Could be an artifact. BBUBA may need to be considered by cardiology. Objective - Vital Signs Vital signs: Vital Signs Temp 97.7 F 04/19/23 08:13 Pulse 78 04/19/23 09:59 Resp 22 04/19/23 08:13 BP 128/66 04/19/23 08:13 Pulse Ox 99 04/19/23 09:50 FiO2 Intake & Output 04/18/23 04/19/23 04/19/23 18:59 06:59 18:59 Intake Total 954 10 Output Total 650 Balance 304 10 Intake: IV 10 10 Invasive Line 1 10 10 Intake, IV Titration 50 Amount cefTRIAXone 2 gm In 50 Sodium Chloride 0.9% 50 ml @ 100 mls/hr IVPB Q24HR [facility] Rx#:[id number] Oral 894 Output: Urine 650 Other: Voiding Method Bedside Commode Bedside Commode Bedside Commode # Voids 1 1 1 # Bowel Movements 1 1 1 - Exam Obese, calm and comfortable not acute distress, currently on 2 L of oxygen by nasal cannula Head exam was generally normal. There was no scleral icterus or corneal arcus. M ucous membranes were moist. Neck was supple and without jugular venous distension, thyromegaly, or carotid bruits. Carotids were easily palpable bilaterally. There was no adenopathy. Lungs sounds are diminished bilaterally along with scattered expiratory wheezes throughout the lung wright and the breath sounds are quite diminished in lung bases bilaterally Cardiac exam revealed the PMI to be normally situated and sized. The rhythm was regular and no extrasystoles were noted during several minutes of auscultation. The first and second heart sounds were normal and physiologic splitting of the second heart sound was noted. There were no murmurs, rubs, clicks, or gallops. Abdominal exam revealed normal bowel sounds. The abdomen was soft, non-tender, and without masses, organomegaly, or appreciable enlargement of the abdominal aorta. Examination of the extremities revealed easily palpable radial, femoral and pedal pulses. There was no cyanosis, clubbing or edema. Examination of the skin revealed no evidence of significant rashes, suspicious appearing nevi or other concerning lesions. - Labs CBC & Chem 7: 04/17/23 13:08 04/17/23 13:08 Labs: Microbiology - Last 24 Hours (Table) 04/17/23 13:08 Blood Culture - Preliminary Blood Assessment and Plan Plan: Acute exacerbation of COPD with secondary shortness of breath. Rule out atypical pneumonia. Rule out tracheobronchitis. The viral screening was negative. Chest x-ray revealing a hiatal hernia. No consolidation or airspace disease Advanced COPD with chronic hypoxic respiratory failure maintained on O2, also maintain on Trelegy Ellipta on outpatient basis Low-grade fever currently under investigation Leukocytosis, on that investigation Paroxysmal A. fib, current rhythm is sinus Obesity Hypertension Hyperlipidemia Plan We'll continue same treatment and continued IV Solu-Medrol for another 24 hours Check pro calcitonin level was low at 0.05 Check pro BNP level, mildly elevated Check troponins Check echocardiogram, showed a preserved LV function and there was a shadow measuring 2.9 cm and IVC RA junction possibly an artifact versus a mass. BUBBA w ill be considered Continue Rocephin and Zithromax, this will be continued Keep the patient on DuoNeb the blood treatments [id number] and IV Solu- Medrol 60 mg every 6 hours Lovenox 40 prophylaxis Titrate oxygen flow to maintain a saturation above 90% We'll continue to follow
--- NOTE | 2023-04-19 20:13 | P.PN ---
Subjective Progress Note Date: 04/19/23 This is a 87-year-old female with a past medical history significant for hypertension. Patient does not follow with a neonatal surgeon. We have been asked to see the patient in consultation for arrhythmia. Patient examined at the bedside. Patient presented to the hospital with a chief complaint of shortness of breath. She states she's been feeling short of breath for the past few days. She denies any chest pain or pressure. She denies any palpitations. According to the ER note, the patient was found to be tachycardic in route to the hospital with a heart rate in the 170s. There are no telemetry tracings available for review and no EKG completed at the time of evaluation. It is unknown what type of arrhythmia the patient was having at that time. The patient denies any history of arrhythmias including atrial fibrillation. She is maintaining sinus mechanism at the time of examination. Progress note 04/19/2023 Patient is doing well from cardiac standpoint. No further notice of any atrial fibrillation activity on telemetry in last 24 hours. She reports having mild productive cough. 135/68, heart rate 101, sinus tachycardia REVIEW OF SYSTEMS: At the time of my exam: CONSTITUTIONAL: Denies fever or chills. HEENT: Denies blurred vision, vision changes, or eye pain. Denies hemoptysis CARDIOVASCULAR: Denies chest pain. Denies orthopnea. Denies PND. Denies palpitations RESPIRATORY: Denies shortness of breath. GASTROINTESTINAL: Denies abdominal pain. Denies nausea or vomiting. HEMATOLOGIC: Denies bleeding disorders. GENITOURINARY: Denies any blood in urine. SKIN: Denies pruitis. Denies rash. PHYSICAL EXAM: VITAL SIGNS: Reviewed. GENERAL: Well-developed in no acute distress. HEENT: Head is normocephalic. Pupils are equal, round. Sclerae anicteric. Mucous membranes of the mouth are moist. Neck supple. No JVD or thyromegaly LUNGS: Respirations even and unlabored. Lungs essentially clear to auscultation bilaterally. HEART: Regular rate and rhythm. S1 and S2 heard. ABDOMEN: Soft. Nondistended. Nontender. EXTREMITIES: Normal range of motion. No clubbing or cyanosis. Peripheral pulses intact. No lower extremity edema NEUROLOGIC: Awake and alert. Oriented x 3. ASSESSMENT: Acute hypoxic respiratory failure Acute exacerbation of COPD Chronic hypoxic respiratory failure on home oxygen Possible pneumonia Leukocytosis with low-grade fever Tachycardia, unclear of rhythm as no telemetry tracings or EKG are available for review, patient denies history of atrial fibrillation Abnormal troponin, no evidence of acute coronary syndrome, may be secondary to type II UT secondary to oxygen supply demand mismatch Hypertension PLAN: No evidence of atrial fibrillation so far on telemetry. We'll obtain a 14 day event monitor prior to discharge to monitor patient in a mbulating setting to see if she has any atrial fibrillation or not metoprolol tartrate 25 mg twice a day COPD management and pneumonia management as per primary team and pulmonary team 2 cm mass noticed at IVC and right atrial junction. Less likely concerning. If patient and set up staying at the hospital until Friday, we will plan for BUBBA. If patient is discharged before that, we'll plan for an outpatient BUBBA. Follow up on blood cultures so far negative at 24 hours Objective - Vital Signs Vital signs: Vital Signs Temp 98.1 F 04/19/23 19:46 Pulse 101 H 04/19/23 19:46 Resp 20 04/19/23 19:46 BP 135/68 04/19/23 19:46 Pulse Ox 96 04/19/23 19:46 FiO2 Intake & Output 04/19/23 04/19/23 04/20/23 06:59 18:59 06:59 Intake Total 640 Balance 640 Intake: IV 20 Invasive Line 1 20 Oral 620 Other: Voiding Method Bedside Commode Bedside Commode # Voids 1 2 # Bowel Movements 1 1 - Labs CBC & Chem 7: 04/17/23 13:08 04/17/23 13:08 Labs: Microbiology - Last 24 Hours (Table) 04/17/23 13:08 Blood Culture - Preliminary Blood
--- NOTE | 2023-04-19 21:57 | P.PN ---
Progress Note - Text Progress Note Date: 04/19/23 Chief Complaint: Increasing cough This is a 87-year-old patient who follows with Dr. Jennifer Martin. At the bedside as pressures patient's daughter. Patient lives with her and her son-in-law. Patient presents with significant increased wheezing and coughing for 1 day. Does have some cough and a baseline. Feeling rather cold. Also some edema. Decreased appetite yesterday. Has 2 L off oxygen at home and a walker and at home. Gets easily short winded. She was long-term exposed to secondhand smoke. Does use a walker at baseline. 04/19/2023: Some bouts of coughing still present. The breathing a bit better. Started 8 better. Daughter the bedside. Discussed Active Medications Albuterol/Ipratropium (Ipratropium-Albuterol 3 Ml Neb) 3 ml INHALATION RT-QID [facility] Last Admin: 04/19/23 21:35 Dose: 3 ml Budesonide/Formoterol Fumarate (Symbicort 80-4.5 Mcg Inhaler) 2 puff INHALATION RT-BID [facility] Last Admin: 04/19/23 21:35 Dose: 2 puff Enoxaparin Sodium (Enoxaparin 40 Mg/0.4 Ml Syringe) [address] [facility] Last Admin: 04/19/23 08:26 Dose: 40 mg Ferrous Sulfate (Ferrous Sulfate 325 Mg Tab) 325 mg PO MoWeFr@0900 [facility] Last Admin: 04/18/23 11:07 Dose: 325 mg Ceftriaxone Sodium 2 gm/ (Sodium Chloride) 50 mls @ 100 mls/hr IVPB Q24HR [facility]; Protocol Stop: 04/21/23 09:29 Last Admin: 04/19/23 08:26 Dose: 100 mls/hr Losartan Potassium (Losartan 50 Mg Tab) [address] [facility] Last Admin: 04/19/23 08:26 Dose: 100 mg Methylprednisolone Sodium Succinate (Methylprednisolone Sod Succi 125 Mg/2 Ml Vial) [address] [facility] Last Admin: 04/19/23 17:17 Dose: 60 mg Metoprolol Tartrate (Metoprolol Tartrate 25 Mg Tab) [address] [facility] Last Admin: 04/19/23 19:49 Dose: 25 mg Miscellaneous Information (Pneumonia Protocol Utilized 1 Each Misc) 1 each PO ONCE PRN PRN Reason: Per Protocol Multivitamins (Multivitamins, Thera 1 Each Tab) [address] [facility] Last Admin: 04/19/23 08:25 Dose: 1 each Pantoprazole Sodium (Pantoprazole 40 Mg Tablet) [address] [facility] Last Admin: 04/19/23 08:26 Dose: 40 mg Social history: Lives with her daughter and son-in-law. Long-term exposure to secondhand smoke. Alcohol occasionally. Physical examination: VITAL SIGNS: 98.1, 104, 20, 1 35 x 60, 96% on 2 L GENERAL: In a chair, breathing a bit better EYES: Pupils equal. Conjunctiva normal. HEENT: External appearance of nose and ears normal, oral cavity grossly normal. NECK: JVD not raised; masses not palpable. HEART: First and second heart sounds are normal; no edema. LUNGS: Respiratory rate increased; improvement in air entry, decreased wheezing ABDOMEN: Soft, nontender, liver spleen not palpable, no masses palpable. PSYCH: Alert and oriented x3; mood and affect normal. MUSCULOSKELETAL:No Clubbing/cyanosis;muscles-grossly intact. OA INVESTIGATIONS, reviewed in the clinical context: 2-D echocardiogram: EF 60-65%. Moderate pulmonary hypertension.. Moderate mitral and tricuspid regurgitation. 2.9 x 1.4 cm echodensity noted in the IVC right atrial junction. Artifact versus mass. White count 19 hemoglobin 11.9 platelets 139 sodium 131 potassium 3.8 BUN 18 creatinine 0.50 Troponin I 0.063 ProBNP 1460 procalcitonin 0.05 Influenza type A, type B, RSV, COVID-19: Not detected EKG tracing personally reviewed by me-normal sinus rhythm. Some flipped T waves in inferolateral leads Chest x-ray film personally reviewed by me-possible infiltrate Assessment and plan: -Acute COPD exacerbation in a patient with long exposure to secondhand smoking. Possibly precipitated by viral bronchitis: Some improvement DuoNeb. IV Solu-Medrol 1 mg every 8. Symbicort -GERD Omeprazole -Essential hypertension Losartan 100 mg a day -Chronic gait dysfunction uses a walker at baseline -Chronic hypoxic respiratory failure from her legs COPD 2 L of oxygen at home -Troponin leak likely from hemodynamic mismatch. No clinical evidence of ACS. Cardiology following -2.9 x 1.4 cm echodensity at the IVC/right atrial junction. Artifact versus mass. Cardiology plan to do a BUBBA -Full code cut back Solu-Medrol. Increase activity. Past Medical History Past Medical History: COPD, Hyperlipidemia, Hypertension History of Any Multi-Drug Resistant Organisms: None Reported Past Surgical History: Tonsillectomy Past Anesthesia/Blood Transfusion Reactions: No Reported Reaction Past Psychological History: No Psychological Hx Reported Smoking Status: Former smoker Past Alcohol Use History: Occasional Past Drug Use History: None Reported
[2023-04-20] MEDS ORDERED: ACETAMINOPHEN TAB 500 MG TAB PO STA (01:28)
[2023-04-20] MEDS: methylPREDNISolone SOD SUCCI 125 MG/2 ML VIAL IV SCH ×3 (05:47→22:31)
[2023-04-20] MEDS: SYMBICORT 80-4.5 MCG INHALER INHALATION SCH ×2 (07:58→20:49)
[2023-04-20] MEDS: IPRATROPIUM-ALBUTEROL 3 ML NEB INHALATION SCH ×4 (08:20→20:49)
[2023-04-20] MEDS: LOSARTAN 50 MG TAB PO SCH (09:12)
[2023-04-20] MEDS: MULTIVITAMINS, THERA 1 EACH TAB PO SCH (09:12)
[2023-04-20] MEDS: METOPROLOL TARTRATE 25 MG TAB PO SCH ×2 (09:12→22:31)
[2023-04-20] MEDS: PANTOPRAZOLE 40 MG TABLET PO SCH (09:12)
[2023-04-20] MEDS: ENOXAPARIN 40 MG/0.4 ML SYRINGE SQ SCH (09:13)
--- NOTE | 2023-04-20 13:22 | P.PN ---
Subjective Progress Note Date: 04/20/23 There is an 87-year-old female patient with known history of oxygen dependent COPD with a living in [place] and she has been seeing Dr. Jac Deleon regarding her COPD and the patient will maintain on Trelegy Ellipta one inhalation daily and it'll HFA on an as-needed basis. Around 6 months ago she was hospitalized at [facility] and that showed where she was treated for UTI and suspected pneumonia. The patient was given broad-spectrum antibiotics and ultimately she was discharged home. No history of any cardiac disease. She presented to us with generalized weakness, cough, congestion, shortness of breath and increased wheezing. The chest x-ray shows a hiatal hernia and increased interstitial prominence and the patient also had some leukocytosis. She was found to be feverish at home and her current temperature is 99.9. She is hemodynamically stable. No altered mentation. She is hard of hearing. In the emergency, the patient went into atrial fibrillation with rapid ventricular response. The patient was treated accordingly and her current rhythm is back into sinus with frequent PACs. She was started on IV fluids and the patient was given a liter bolus. She was started on a combination of Rocephin and Zithromax. No focal neurological deficit. No nausea or vomiting. No abdominal pain. No aspiration. Maintain on Prilosec on outpatient basis. No previous history of cardiac arrhythmias. No history of any congestion heart failure. On today's evaluation of 04/18/2020, the patient is feeling much better compared to yesterday. The patient is less spastic and wheezing. No significant shortness of breath. Remains on antibiotics. Remains on steroids. Remains on bronchodilators. No change in the mental status. No other new complaints otherwise for now. ProBNP level was 1460. Troponin was at 0.06. UA was negative. On today's evaluation of 04/19/2023, the patient still having some limited congestive cough. Decided to proceed with antibiotics for another 24-48 hours. Decided to continue the IV Solu-Medrol. She remains on oxygen 2 L/m nasal cannula. No chest pain. No interval worsening shortness of breath. No new labs are available from today. No other complaints otherwise. The echo of the heart was completed and the patient has a preserved LV function. As mentioned, there was a structure measuring 2.9 cm and the IVC/RA junction. Could be an artifact. BUBBA may need to be considered by cardiology. On today's evaluation of 04/20/2023, the patient is still having some limited bronchospasm and wheezing. Family is very much concerned and for that reason the patient will be kept on the same bronchodilator regimen and steroids. She remains on 2 L of oxygen by nasal cannula. She is ambulating. Patient herself denies having any specific complaints. Labs need to be checked today. No altered mentation. She is hard of hearing. She remains on Solu-Medrol 40 mg every 8 hours. She is also on Symbicort and DuoNeb updrafts. Objective - Vital Signs Vital signs: Vital Signs Temp 98.1 F 04/20/23 07:10 Pulse 88 04/20/23 08:31 Resp 16 04/20/23 07:10 BP 126/65 04/20/23 07:10 Pulse Ox 96 04/20/23 07:59 FiO2 Intake & Output 04/19/23 04/20/23 04/20/23 18:59 06:59 18:59 Intake Total 640 Balance 640 Weight 56.5 kg Intake: IV 20 Invasive Line 1 20 Oral 620 Other: Voiding Method Bedside Commode Bedside Commode # Voids 2 0 # Bowel Movements 1 - Exam Obese, calm and comfortable not acute distress, currently on 2 L of oxygen by nasal cannula Head exam was generally normal. There was no scleral icterus or corneal arcus. Mucous membranes were moist. Neck was supple and without jugular venous distension, thyromegaly, or carotid bruits. Carotids were easily palpable bilaterally. There was no adenopathy. Lungs sounds are diminished bilaterally along with scattered expiratory wheezes throughout the lung wright and the breath sounds are quite diminished in lung bases bilaterally Cardiac exam revealed the PMI to be normally situated and sized. The rhythm was regular and no extrasystoles were noted during several minutes of auscultation. The first and second heart sounds were normal and physiologic splitting of the second heart sound was noted. There were no murmurs, rubs, clicks, or gallops. Abdominal exam revealed normal bowel sounds. The abdomen was soft, non-tender, and without masses, organomegaly, or appreciable enlargement of the abdominal aorta. Examination of the extremities revealed easily palpable radial, femoral and pedal pulses. There was no cyanosis, clubbing or edema. Examination of the skin revealed no evidence of significant rashes, suspicious appearing nevi or other concerning lesions. - Labs CBC & Chem 7: 04/17/23 13:08 04/17/23 13:08 Labs: Microbiology - Last 24 Hours (Table) 04/17/23 13:08 Blood Culture - Preliminary Blood Assessment and Plan Plan: Acute exacerbation of COPD with secondary shortness of breath. Rule out atypical pneumonia. Rule out tracheobronchitis. The viral screening was negative. Chest x-ray revealing a hiatal hernia. No consolidation or airspace disease, clinically stable, still slightly bronchospastic Advanced COPD with chronic hypoxic respiratory failure maintained on O2, also maintain on Trelegy Ellipta on outpatient basis Low-grade fever currently under investigation Leukocytosis, on that investigation Paroxysmal A. fib, current rhythm is sinus Obesity Hypertension Hyperlipidemia Plan We'll continue same treatment and continued IV Solu-Medrol for another 24 hours, currently on a dose of 40 mg every 8 hours Continue DuoNeb updrafts Continue Symbicort We'll need to recheck the blood work Check pro calcitonin level was low at 0.05 Check pro BNP level, mildly elevated Check troponins Check echocardiogram, showed a preserved LV function and there was a shadow measuring 2.9 cm and IVC RA junction possibly an artifact versus a mass. BUBBA will be considered Continue Rocephin , this will be continued Lovenox 40 prophylaxis Titrate oxygen flow to maintain a saturation above 90% We'll continue to follow
[2023-04-20 15:03] LABS: Basophils % (A) 0 %; Eosinophils % (A) 0 %; HGB 12.3 gm/dL (11.4-16.0); Hypochromasia Moderate; Lymphocytes # (A) 0.4 k/uL (1.0-4.8); Lymphocytes % (A) 2 %; MCH 29.3 pg (25.0-35.0); MCHC 30.9 g/dL (31.0-37.0); MCV 94.8 fL (80.0-100.0); Mean Platelet Volume 8.2; Monocytes # (A) 0.7 k/uL (0-1.0); Monocytes % (A) 3 %; Neutrophils # (A) 20.1 k/uL (1.3-7.7); Neutrophils % (A) 94 %; Platelet Count 251 k/uL (150-450); RBC 4.22 m/uL (3.80-5.40); RDW 12.9 % (11.5-15.5); WBC 21.3 k/uL (3.8-10.6)
[2023-04-20 15:11] LABS: ALT 31 U/L (4-34); AST 41 U/L (14-36); African American GFR (CKD) >90 (>60 ml/min/1.73 sqM); Albumin 3.5 g/dL (3.5-5.0); Albumin/Globulin Ratio 1.3; Alkaline Phosphatase 94 U/L (38-126); Anion Gap 9 mmol/L; Blood Urea Nitrogen 22 mg/dL (7-17); Calcium 8.7 mg/dL (8.4-10.2); Carbon Dioxide 31 mmol/L (22-30); Chloride 91 mmol/L (98-107); Globulin 2.6 g/dL; Glucose 166 mg/dL (74-99); Non-African American GFR(CKD) 79 (>60 ml/min/1.73 sqM); Potassium 4.4 mmol/L (3.5-5.1); Sodium 131 mmol/L (137-145); Total Bilirubin 0.2 mg/dL (0.2-1.3); Total Protein 6.1 g/dL (6.3-8.2)
--- NOTE | 2023-04-20 17:05 | P.PN ---
Progress Note - Text Progress Note Date: 04/20/23 Chief Complaint: Increasing cough This is a 87-year-old patient who follows with Dr. Jennifer Martin. At the bedside as pressures patient's daughter. Patient lives with her and her son-in-law. Patient presents with significant increased wheezing and coughing for 1 day. Does have some cough and a baseline. Feeling rather cold. Also some edema. Decreased appetite yesterday. Has 2 L off oxygen at home and a walker and at home. Gets easily short winded. She was long-term exposed to secondhand smoke. Does use a walker at baseline. 04/19/2023: Some bouts of coughing still present. The breathing a bit better. Started 8 better. Daughter the bedside. Discussed 04/20/2023: Up in a recliner. Intermittent coughing. Encouraged incentive spirometry. Still some shortness of breath. Discussed with the patient daughter at the bedside. Active Medications Albuterol/Ipratropium (Ipratropium-Albuterol 3 Ml Neb) 3 ml INHALATION RT-QID [facility] Last Admin: 04/20/23 14:59 Dose: 3 ml Budesonide/Formoterol Fumarate (Symbicort 80-4.5 Mcg Inhaler) 2 puff INHALATION RT-BID [facility] Last Admin: 04/20/23 07:58 Dose: 2 puff Enoxaparin Sodium (Enoxaparin 40 Mg/0.4 Ml Syringe) 40 mg SQ DAILY [facility] Last Admin: 04/20/23 09:13 Dose: 40 mg Ferrous Sulfate (Ferrous Sulfate 325 Mg Tab) 325 mg PO MoWeFr@0900 [facility] Last Admin: 04/18/23 11:07 Dose: 325 mg Ceftriaxone Sodium 2 gm/ (Sodium Chloride) 50 mls @ 100 mls/hr IVPB Q24HR [facility]; Protocol Stop: 04/21/23 09:29 Last Admin: 04/20/23 09:13 Dose: 100 mls/hr Losartan Potassium (Losartan 50 Mg Tab) 100 mg PO DAILY [facility] Last Admin: 04/20/23 09:12 Dose: 100 mg Methylprednisolone Sodium Succinate (Methylprednisolone Sod Succi 125 Mg/2 Ml Vial) 40 mg IV Q8H [facility] Last Admin: 04/20/23 14:31 Dose: 40 mg Metoprolol Tartrate (Metoprolol Tartrate 25 Mg Tab) 25 mg PO BID [facility] Last Admin: 04/20/23 09:12 Dose: 25 mg Miscellaneous Information (Pneumonia Protocol Utilized 1 Each Misc) 1 each PO ONCE PRN PRN Reason: Per Protocol Multivitamins (Multivitamins, Thera 1 Each Tab) 1 each PO DAILY [facility] Last Admin: 04/20/23 09:12 Dose: 1 each Pantoprazole Sodium (Pantoprazole 40 Mg Tablet) 40 mg PO DAILY [facility] Last Admin: 04/20/23 09:12 Dose: 40 mg Social history: Lives with her daughter and son-in-law. Long-term exposure to secondhand smoke. Alcohol occasionally. Physical examination: VITAL SIGNS: 97.8, 79, 16, 135/77, 100% on 2 L GENERAL: In a chair, breathing better EYES: Pupils equal. Conjunctiva normal. HEENT: External appearance of nose and ears normal, oral cavity grossly normal. NECK: JVD not raised; masses not palpable. HEART: First and second heart sounds are normal; no edema. LUNGS: Respiratory rate increased; improvement in air entry, some wheezing ABDOMEN: Soft, nontender, liver spleen not palpable, no masses palpable. PSYCH: Alert and oriented x3; mood and affect normal. MUSCULOSKELETAL:No Clubbing/cyanosis;muscles-grossly intact. OA INVESTIGATIONS, reviewed in the clinical context: 04/20/2023: White count 21.3 hemoglobin 12.3 potassium 4.4 creatinine 0.67 2-D echocardiogram: EF 60-65%. Moderate pulmonary hypertension.. Moderate mitral and tricuspid regurgitation. 2.9 x 1.4 cm echodensity noted in the IVC right atrial junction. Artifact versus mass. White count 19 hemoglobin 11.9 platelets 139 sodium 131 potassium 3.8 BUN 18 creatinine 0.50 Troponin I 0.063 ProBNP 1460 procalcitonin 0.05 Influenza type A, type B, RSV, COVID-19: Not detected EKG tracing personally reviewed by me-normal sinus rhythm. Some flipped T waves in inferolateral leads Chest x-ray film personally reviewed by me-possible infiltrate Assessment and plan: -Acute COPD exacerbation in a patient with long exposure to secondhand smoking. Possibly precipitated by viral bronchitis: Some improvement DuoNeb. IV Solu-Medrol 40 mg every 8. 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 No clinical evidence of ACS. Cardiology following -2.9 x 1.4 cm echodensity at the IVC/right atrial junction. Artifact versus mass. Cardiology plan to do a BUBBA -Full code Discussed. Not ready for DC today Past Medical History Past Medical History: COPD, Hyperlipidemia, Hypertension History of Any Multi-Drug Resistant Organisms: None Reported Past Surgical History: Tonsillectomy Past Anesthesia/Blood Transfusion Reactions: No Reported Reaction Past Psychological History: No Psychological Hx Reported Smoking Status: Former smoker Past Alcohol Use History: Occasional Past Drug Use History: None Reported
[2023-04-21] MEDS: methylPREDNISolone SOD SUCCI 125 MG/2 ML VIAL IV SCH ×3 (05:21→20:41)
--- NOTE | 2023-04-21 07:32 | XR ---
EXAMINATION TYPE: XR chest 1V DATE OF EXAM: 04/21/2023 COMPARISON: 04/18/2023 INDICATION: Dyspnea TECHNIQUE: Single frontal view of the chest is obtained. FINDINGS: The heart size is mildly prominent. The pulmonary vasculature is normal. There is some streak opacity at the right base compatible with atelectasis. Mild increased infiltrate is at the left base may been present previously. Mild blunting of the costophrenic angles is present could be some underlying pleural effusion. IMPRESSION: 1. Bibasilar infiltrates. Consider Atelectasis and pneumonia. Minimal bibasilar pleural effusions ma y be present
[2023-04-21] MEDS: IPRATROPIUM-ALBUTEROL 3 ML NEB INHALATION SCH ×4 (08:41→21:37)
[2023-04-21] MEDS: SYMBICORT 80-4.5 MCG INHALER INHALATION SCH ×2 (08:42→21:37)
[2023-04-21] MEDS: METOPROLOL TARTRATE 25 MG TAB PO SCH ×2 (08:45→20:41)
[2023-04-21] MEDS: FERROUS SULFATE 325 MG TAB PO SCH (08:45)
[2023-04-21] MEDS: PANTOPRAZOLE 40 MG TABLET PO SCH (08:45)
[2023-04-21] MEDS: LOSARTAN 50 MG TAB PO SCH (08:45)
[2023-04-21] MEDS: MULTIVITAMINS, THERA 1 EACH TAB PO SCH (08:46)
[2023-04-21] MEDS: ENOXAPARIN 40 MG/0.4 ML SYRINGE SQ SCH (08:46)
[2023-04-21] MEDS ORDERED: FUROSEMIDE 10 MG/ML 4 ML VIAL IV STA (14:03)
--- NOTE | 2023-04-21 14:03 | P.PN ---
Subjective Progress Note Date: 04/21/23 There is an 87-year-old female patient with known history of oxygen dependent COPD with a living in [place] and she has been seeing Dr. Jac Deleon regarding her COPD and the patient will maintain on Trelegy Ellipta one inhalation daily and it'll HFA on an as-needed basis. Around 6 months ago she was hospitalized at [facility] and that showed where she was treated for UTI and suspected pneumonia. The patient was given broad-spectrum antibiotics and ultimately she was discharged home. No history of any cardiac disease. She presented to us with generalized weakness, cough, congestion, shortness of breath and increased wheezing. The chest x-ray shows a hiatal hernia and increased interstitial prominence and the patient also had some leukocytosis. She was found to be feverish at home and her current temperature is 99.9. She is hemodynamically stable. No altered mentation. She is hard of hearing. In the emergency, the patient went into atrial fibrillation with rapid ventricular response. The patient was treated accordingly and her current rhythm is back into sinus with frequent PACs. She was started on IV fluids and the patient was given a liter bolus. She was started on a combination of Rocephin and Zithromax. No focal neurological deficit. No nausea or vomiting. No abdominal pain. No aspiration. Maintain on Prilosec on outpatient basis. No previous history of cardiac arrhythmias. No history of any congestion heart failure. On today's evaluation of 04/18/2020, the patient is feeling much better compared to yesterday. The patient is less spastic and wheezing. No significant shortness of breath. Remains on antibiotics. Remains on steroids. Remains on bronchodilators. No change in the mental status. No other new complaints otherwise for now. ProBNP level was 1460. Troponin was at 0.06. UA was negative. On today's evaluation of 04/19/2023, the patient still having some limited congestive cough. Decided to proceed with antibiotics for another 24-48 hours. Decided to continue the IV Solu-Medrol. She remains on oxygen 2 L/m nasal cannula. No chest pain. No interval worsening shortness of breath. No new labs are available from today. No other complaints otherwise. The echo of the heart was completed and the patient has a preserved LV function. As mentioned, there was a structure measuring 2.9 cm and the IVC/RA junction. Could be an artifact. BUBBA may need to be considered by cardiology. On today's evaluation of 04/20/2023, the patient is still having some limited bronchospasm and wheezing. Family is very much concerned and for that reason the patient will be kept on the same bronchodilator regimen and steroids. She remains on 2 L of oxygen by nasal cannula. She is ambulating. Patient herself denies having any specific complaints. Labs need to be checked today. No altered mentation. She is hard of hearing. She remains on Solu-Medrol 40 mg every 8 hours. She is also on Symbicort and DuoNeb updrafts. On 04/21/2023, the patient is still having some limited wheezing and shortness of breath and cough and congestion. Noted the patient advanced COPD the patient has been maintained on oxygen and not patient basis. The chest x-ray was done that showed atelectatic change in lung bases along possibility of small bilateral pleural effusions. She is weak. Physical therapy is available and they have been involved in her case. She is on Symbicort. She is on DuoNeb updrafts. No other the patient take Trelegy Ellipta on outpatient basis. The white cell count from yesterday of 21 with a hemoglobin of 12.3. Sodium is 131 and a potassium level is at 4.4. Her pro calcitonin level at time of admission was essentially normal at 0.05. On her chest x-ray, she has a component of cardiomegaly. Objective - Vital Signs Vital signs: Vital Signs Temp 98.1 F 04/21/23 08:00 Pulse 76 04/21/23 08:57 Resp 18 04/21/23 08:00 BP 161/99 04/21/23 08:00 Pulse Ox 100 04/21/23 08:00 FiO2 Intake & Output 04/20/23 04/21/23 04/21/23 18:59 06:59 18:59 Weight 57 kg Other: Voiding Method Bedside Commode # Voids 1 1 1 # Bowel Movements 1 - Exam Obese, calm and comfortable not acute distress, currently on 2 L of oxygen by nasal cannula Head exam was generally normal. There was no scleral icterus or corneal arcus. Mucous membranes were moist. Neck was supple and without jugular venous distension, thyromegaly, or carotid bruits. Carotids were easily palpable bilaterally. There was no adenopathy. Lungs sounds are diminished bilaterally along with scattered expiratory wheezes throughout the lung wright and the breath sounds are quite diminished in lung bases bilaterally Cardiac exam revealed the PMI to be normally situated and sized. The rhythm was regular and no extrasystoles were noted during several minutes of auscultation. The first and second heart sounds were normal and physiologic splitting of the second heart sound was noted. There were no murmurs, rubs, clicks, or gallops. Abdominal exam revealed normal bowel sounds. The abdomen was soft, non-tender, and without masses, organomegaly, or appreciable enlargement of the abdominal aorta. Examination of the extremities revealed easily palpable radial, femoral and pedal pulses. There was no cyanosis, clubbing or edema. Examination of the skin revealed no evidence of significant rashes, suspicious appearing nevi or other concerning lesions. - Labs CBC & Chem 7: 04/20/23 14:11 04/20/23 14:11 Labs: Abnormal Lab Results - Last 24 Hours (Table) 04/20/23 04/20/23 Range/Units 14:11 14:11 WBC 21.3 H (3.8-10.6) k/uL MCHC 30.9 L (31.0-37.0) g/dL Neutrophils # 20.1 H (1.3-7.7) k/uL Lymphocytes # 0.4 L (1.0-4.8) k/uL Sodium 131 L (137-145) mmol/L Chloride 91 L (98-107) mmol/L Carbon Dioxide 31 H (22-30) mmol/L BUN 22 H (7-17) mg/dL Glucose 166 H (74-99) mg/dL AST 41 H (14-36) U/L Total Protein 6.1 L (6.3-8.2) g/dL Microbiology - Last 24 Hours (Table) 04/17/23 13:08 Blood Culture - Preliminary Blood Assessment and Plan Plan: Acute exacerbation of COPD with secondary shortness of breath. Rule out atypical pneumonia. Rule out tracheobronchitis. The viral screening was negative. Chest x-ray revealing a hiatal hernia. No consolidation or airspace disease, clinically stable, still slightly bronchospastic Advanced COPD with chronic hypoxic respiratory failure maintained on O2, also maintain on Trelegy Ellipta on outpatient basis Low-grade fever currently under investigation Leukocytosis, on that investigation Paroxysmal A. fib, current rhythm is sinus Obesity Hypertension Hyperlipidemia Plan We'll give the patient does have a 40 mg IV 1 We'll continue same treatment and continued IV Solu-Medrol for another 24 hours, currently on a dose of 40 mg every 8 hours Continue DuoNeb updrafts Continue Symbicort We'll need to recheck the blood work from today. The white echo from yesterday was showing some slight leukocytosis Check pro calcitonin level was low at 0.05 Check pro BNP level, mildly elevated Check troponins Check echocardiogram, showed a preserved LV function and there was a shadow measuring 2.9 cm and IVC RA junction possibly an artifact versus a mass. BUBBA will be considered Continue Rocephin , this will be continued Lovenox 40 prophylaxis Titrate oxygen flow to maintain a saturation above 90% We'll continue to follow
--- NOTE | 2023-04-21 15:37 | P.PN ---
Subjective Progress Note Date: 04/21/23 This is a 87-year-old female with a past medical history significant for hypertension. 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 We have been asked to see the patient in consultation for arrhythmia. Patient examined at the bedside. Patient presented to the hospital with a chief complaint of shortness of breath. She states she's been feeling short of breath for the past few days. She denies any chest pain or pressure. She denies any palpitations. According to the ER note, the patient was found to be tachycardic in route to the hospital with a heart rate in the 170s. There are no telemetry tracings available for review and no EKG completed at the time of evaluation. It is unknown what type of arrhythmia the patient was having at that time. The patient denies any history of arrhythmias including atrial fibrillation. She is maintaining sinus mechanism at the time of examination. Progress note 04/21/23 Patient denies any chest pain chest pressure. Blood pressure 129/77, heart rate 76 beats a minute, sinus rhythm on telemetry next and blood cultures have been negative at 72 hours WBC 21, hemoglobin 12, creatinine 0.6, PHYSICAL EXAM: LUNGS: Mild crackles audible HEART: Regular rate and rhythm. S1 and S2 heard. No murmurs or patient ABDOMEN: Soft. Nondistended. Nontender. EXTREMITIES: No lower extremity edema NEUROLOGIC: Awake and alert. Detailed neuro exam was not performed ASSESSMENT: 2 cm mass noted at IVC and right atrial junction, less likely of any clinical significance. Blood cultures have been negative at 72 hours. Acute hypoxic respiratory failure Acute exacerbation of COPD Chronic hypoxic respiratory failure on home oxygen Possible pneumonia Leukocytosis with low-grade fever Tachycardia, unclear of rhythm as no telemetry tracings or EKG are available for review, patient denies history of atrial fibrillation Abnormal troponin, no evidence of acute coronary syndrome, may be secondary to type II ND secondary to oxygen supply demand mismatch Hypertension PLAN: No evidence of atrial fibrillation so far on telemetry. We'll obtain a 14 day event monitor prior to discharge to monitor patient in ambulating setting to see if she has any atrial fibrillation or not metoprolol tartrate 25 mg twice a day COPD management and pneumonia management as per primary team and pulmonary team 2 cm mass noted at IVC and right atrial junction, less likely of any clinical significance. Blood cultures have been negative at 72 hours. BUBBA is not the best modality to visualize this mass as this is not well visualized on BUBBA. If primary medicine team agrees, may consider ordering a CT angiogram with venous phase contrast to visualize IVC & right atrial mass. Objective - Vital Signs Vital signs: Vital Signs Temp 98.4 F 04/21/23 14:00 Pulse 95 04/21/23 14:00 Resp 18 04/21/23 14:00 BP 129/77 04/21/23 14:00 Pulse Ox 97 04/21/23 14:00 FiO2 Intake & Output 04/20/23 04/21/23 04/21/23 18:59 06:59 18:59 Weight 57 kg Other: Voiding Method Bedside Commode # Voids 1 1 1 # Bowel Movements 1 - Labs CBC & Chem 7: 04/20/23 14:11 04/20/23 14:11 Labs: Microbiology - Last 24 Hours (Table) 04/17/23 13:08 Blood Culture - Preliminary Blood
--- NOTE | 2023-04-21 18:39 | P.PN ---
Progress Note - Text Progress Note Date: 04/21/23 Chief Complaint: Increasing cough This is a 87-year-old patient who follows with Dr. Jennifer Martin. At the bedside as pressures patient's daughter. Patient lives with her and her son-in-law. Patient presents with significant increased wheezing and coughing for 1 day. Does have some cough and a baseline. Feeling rather cold. Also some edema. Decreased appetite yesterday. Has 2 L off oxygen at home and a walker and at home. Gets easily short winded. She was long-term exposed to secondhand smoke. Does use a walker at baseline. 04/19/2023: Some bouts of coughing still present. The breathing a bit better. Started 8 better. Daughter the bedside. Discussed 04/20/2023: Up in a recliner. Intermittent coughing. Encouraged incentive spirometry. Still some shortness of breath. Discussed with the patient daughter at the bedside. 04/21/2023: Breathing slowly improving. Intermittent cough. Up in a recliner. Eating better. Discussed with the patient and daughter the bedside. Increase activity. Active Medications Albuterol/Ipratropium (Ipratropium-Albuterol 3 Ml Neb) 3 ml INHALATION RT-QID [facility] Last Admin: 04/21/23 16:00 Dose: 3 ml Budesonide/Formoterol Fumarate (Symbicort 80-4.5 Mcg Inhaler) 2 puff INHALATION RT-BID [facility] Last Admin: 04/21/23 08:42 Dose: 2 puff Enoxaparin Sodium (Enoxaparin 40 Mg/0.4 Ml Syringe) 40 mg SQ DAILY [facility] Last Admin: 04/21/23 08:46 Dose: 40 mg Ferrous Sulfate (Ferrous Sulfate 325 Mg Tab) 325 mg PO MoWeFr@0900 [facility] Last Admin: 04/21/23 08:45 Dose: 325 mg Losartan Potassium (Losartan 50 Mg Tab) 100 mg PO DAILY [facility] Last Admin: 04/21/23 08:45 Dose: 100 mg Methylprednisolone Sodium Succinate (Methylprednisolone Sod Succi 125 Mg/2 Ml Vial) 40 mg IV Q8H [facility] Last Admin: 04/21/23 14:31 Dose: 40 mg Metoprolol Tartrate (Metoprolol Tartrate 25 Mg Tab) 25 mg PO BID [facility] Last Admin: 04/21/23 08:45 Dose: 25 mg Miscellaneous Information (Pneumonia Protocol Utilized 1 Each Misc) 1 each PO ONCE PRN PRN Reason: Per Protocol Multivitamins (Multivitamins, Thera 1 Each Tab) 1 each PO DAILY [facility] Last Admin: 04/21/23 08:46 Dose: 1 each Pantoprazole Sodium (Pantoprazole 40 Mg Tablet) 40 mg PO DAILY [facility] Last Admin: 04/21/23 08:45 Dose: 40 mg Social history: Lives with her daughter and son-in-law. Long-term exposure to secondhand smoke. Alcohol occasionally. Physical examination: VITAL SIGNS: 98.4, 95, 18, 05/19 of 77, 97% on 2 L GENERAL: In a chair, breathing approved EYES: Pupils equal. Conjunctiva normal. HEENT: External appearance of nose and ears normal, oral cavity grossly normal. NECK: JVD not raised; masses not palpable. HEART: First and second heart sounds are normal; no edema. LUNGS: Respiratory rate increased; improvement in air entry, decreased wheezing ABDOMEN: Soft, nontender, liver spleen not palpable, no masses palpable. PSYCH: Alert and oriented x3; mood and affect normal. MUSCULOSKELETAL:No Clubbing/cyanosis;muscles-grossly intact. OA INVESTIGATIONS, reviewed in the clinical context: 04/20/2023: White count 21.3 hemoglobin 12.3 potassium 4.4 creatinine 0.67 2-D echocardiogram: EF 60-65%. Moderate pulmonary hypertension.. Moderate mitral and tricuspid regurgitation. 2.9 x 1.4 cm echodensity noted in the IVC right atrial junction. Artifact versus mass. White count 19 hemoglobin 11.9 platelets 139 sodium 131 potassium 3.8 BUN 18 creatinine 0.50 Troponin I 0.063 ProBNP 1460 procalcitonin 0.05 Influenza type A, type B, RSV, COVID-19: Not detected EKG tracing personally reviewed by me-normal sinus rhythm. Some flipped T waves in inferolateral leads Chest x-ray film personally reviewed by me-possible infiltrate Assessment and plan: -Acute COPD exacerbation in a patient with long exposure to secondhand smoking. Possibly precipitated by viral bronchitis: Improving DuoNeb. IV Solu-Medrol 40 mg every 8. 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 No clinical evidence of ACS. Cardiology following -2.9 x 1.4 cm echodensity at the IVC/right atrial junction. Artifact versus mass. Cardiology plan to do a BUBBA -Full code Increase activity. Discussed with the patient daughter. Aiming for discharge tomorrow. Past Medical History Past Medical History: COPD, Hyperlipidemia, Hypertension History of Any Multi-Drug Resistant Organisms: None Reported Past Surgical History: Tonsillectomy Past Anesthesia/Blood Transfusion Reactions: No Reported Reaction Past Psychological History: No Psychological Hx Reported Smoking Status: Former smoker Past Alcohol Use History: Occasional Past Drug Use History: None Reported
[2023-04-22] MEDS: methylPREDNISolone SOD SUCCI 125 MG/2 ML VIAL IV SCH ×3 (05:10→19:59)
[2023-04-22] MEDS: IPRATROPIUM-ALBUTEROL 3 ML NEB INHALATION SCH ×4 (08:20→21:41)
[2023-04-22] MEDS: SYMBICORT 80-4.5 MCG INHALER INHALATION SCH ×2 (08:20→21:41)
[2023-04-22] MEDS: MULTIVITAMINS, THERA 1 EACH TAB PO SCH (09:23)
[2023-04-22] MEDS: LOSARTAN 50 MG TAB PO SCH (09:23)
[2023-04-22] MEDS: ENOXAPARIN 40 MG/0.4 ML SYRINGE SQ SCH (09:23)
[2023-04-22] MEDS: METOPROLOL TARTRATE 25 MG TAB PO SCH ×2 (09:23→19:59)
[2023-04-22] MEDS: PANTOPRAZOLE 40 MG TABLET PO SCH (09:23)
--- NOTE | 2023-04-22 09:28 | P.PN ---
Subjective HISTORY OF PRESENT ILLNESS: This is a 87-year-old female with a past medical history significant for hypertension. Patient does not follow with a anatomic pathologist. We have been asked to see the patient in consultation for arrhythmia. Patient examined at the bedside. Patient presented to the hospital with a chief complaint of shortness of breath. She states she's been feeling short of breath for the past few days. She denies any chest pain or pressure. She denies any palpitations. According to the ER note, the patient was found to be tachycardic in route to the hospital with a heart rate in the 170s. There are no telemetry tracings available for review and no EKG completed at the time of evaluation. It is unknown what type of arrhythmia the patient was having at that time. The patient denies any history of arrhythmias including atrial fibrillation. She is maintaining sinus mechanism at the time of examination. * Chest xray COPD, scoliosis, borderline to mild cardiomegaly, hiatal hernia at least moderate in size, similar interstitial changes. Interstitial changes are overall less pronounced but the focal patchy bibasilar infiltrates are more pronounced. * Laboratory data: W BC 19.0. ProBNP 1460. Troponin 0.063. * Current home cardiac medications include losartan 100 mg daily and hydrochlorothiazide 25 mg daily * No previous echocardiogram available for review 04/22/2023 Patient examined this morning. She is sitting up in the chair. Family is present. Patient denies any chest pain or pressure. She denies any shortness of breath. She worked with physical therapy this morning. Telemetry reveals sinus mechanism. Patient is scheduled to undergo CT angio today. PHYSICAL EXAM: VITAL SIGNS: Reviewed. GENERAL: Well-developed in no acute distress. HEENT: Head is normocephalic. Pupils are equal, round. Sclerae anicteric. Mucous membranes of the mouth are moist. Neck supple. No JVD or thyromegaly LUNGS: Respirations even and unlabored. Lungs essentially clear to auscultation bilaterally. HEART: Regular rate and rhythm. S1 and S2 heard. ABDOMEN: Soft. Nondistended. Nontender. EXTREMITIES: Normal range of motion. No clubbing or cyanosis. Peripheral pulses intact. No lower extremity edema NEUROLOGIC: Awake and alert. Oriented x 3. ASSESSMENT: Shortness of breath Acute exacerbation of COPD Chronic hypoxic respiratory failure on home oxygen Possible pneumonia Leukocytosis with low-grade fever Tachycardia, unclear of rhythm as no telemetry tracings or EKG are available for review, patient denies history of atrial fibrillation Abnormal troponin, no evidence of acute coronary syndrome, may be secondary to type II [place] secondary to oxygen supply demand mismatch Hypertension 2.9x1.4 cm mass versus artifact noted at IVC and right atrial junction, per echocardiogram PLAN: Continue telemetry monitoring Patient to receive event monitor at the time of discharge Patient to undergo CT angio today. No plans for BUBBA. Further recommendations pending patient's course Nurse practitioner note has been reviewed by physician. Signing provider agrees with the documented findings, assessment, and plan of care. Objective - Vital Signs Vital signs: Vital Signs Temp 98.4 F 04/22/23 07:48 Pulse 85 04/22/23 08:31 Resp 18 04/22/23 07:48 BP 134/74 04/22/23 07:48 Pulse Ox 96 04/22/23 08:20 FiO2 Intake & Output 04/21/23 04/22/23 04/22/23 18:59 06:59 18:59 Weight 56.5 kg Other: Voiding Method Bedside Commode # Voids 3 2 - Labs CBC & Chem 7: 04/20/23 14:11 04/20/23 14:11
--- NOTE | 2023-04-22 12:39 | CT ---
EXAMINATION TYPE: CT angio chest CT DLP: 1366.3 mGycm, Automated exposure control for dose reduction was used. DATE OF EXAM: 04/22/2023 11:41 AM COMPARISON: Chest radiograph from one day prior CLINICAL INDICATION:Female, 87 years old with history of IVC, RA junction mass; TECHNIQUE/CONTRAST: CTA scan of the thorax is performed with IV Contrast, patient injected with 100 mL of Isovue 300, MIP images are created and reviewed these are created on a separate workstation.. FINDINGS: Lungs/Pleura: Scattered reticular opacities are seen throughout the lungs. No pleural effusion or pne umothorax. Right lower lobe calcification dilation. There is bronchiectasis of the right middle lobe scattered peripheral reticular opacities. Multiple nodular opacities are seen within the left lung ba se series 501 image 104 measuring 13 x 7 mm. Airway: Large airways are patent. Mild bronchiectasis with atelectasis of the right middle lobe. Hear t: There are is enlarged for size. There is moderate to severe coronary artery atherosclerosis. Vasculature: No evidence for intramural hematoma on noncontrast imaging. No evidence of intimal flap to suggest dissection. No aneurysm identified. Scattered atherosclerotic disease. Pulmonary trunk is dilated up 3.4 cm. Mediastinum: No gross evidence of adenopathy. Large hiatal hernia is present. Scattered partially alla cified lymph nodes are seen throughout the mediastinum. Musculoskeletal: No acute osseous abnormalities, severe degeneration changes of the shoulder joints w ith joint space narrowing and osteophyte formation. Moderate multilevel degeneration changes througho ut the spine. Soft Tissues: Unremarkable. Lower neck: No significant findings. Upper Abdomen: Layering gallstones are seen throughout the gallbladder lumen. Scattered hepatic cysts at least one of which has a peripheral thin calcification. IMPRESSION: 1. Large right hiatal hernia without evidence of mass. This accounts for finding plain film. There is right middle lobe bronchiectasis and atelectasis which may also account for the finding on plain carolann m. 2. Scattered reticular opacities correlate for atypical pneumonia. Superimposed nodular densities in the left lung base should be further evaluated with short-term follow-up CT in 3-6 months. 3. No evidence for pulmonary embolus, dissection or aneurysm. 4. Mild cardiomegaly with evidence of pulmonary hypertension severe coronary artery atherosclerosis. 5. Cholelithiasis. 6. Sequela of chronic granulomatous disease. Follow up recommendations for incidental pulmonary nodules, if there are any, are per [employer] or [employer].
--- NOTE | 2023-04-22 15:09 | P.PN ---
Subjective Progress Note Date: 04/22/23 There is an 87-year-old female patient with known history of oxygen dependent COPD with a living in [place] and she has been seeing Dr. Jac Deleon regarding her COPD and the patient will maintain on Trelegy Ellipta one inhalation daily and it'll HFA on an as-needed basis. Around 6 months ago she was hospitalized at [place] and that showed where she was treated for UTI and suspected pneumonia. The patient was given broad-spectrum antibiotics and ultimately she was discharged home. No history of any cardiac disease. She presented to us with generalized weakness, cough, congestion, shortness of breath and increased wheezing. The chest x-ray shows a hiatal hernia and increased interstitial prominence and the patient also had some leukocytosis. She was found to be feverish at home and her current temperature is 99.9. She is hemodynamically stable. No altered mentation. She is hard of hearing. In the emergency, the patient went into atrial fibrillation with rapid ventricular response. The patient was treated accordingly and her current rhythm is back into sinus with frequent PACs. She was started on IV fluids and the patient was given a liter bolus. She was started on a combination of Rocephin and Zithromax. No focal neurological deficit. No nausea or vomiting. No abdominal pain. No aspiration. Maintain on Prilosec on outpatient basis. No previous history of cardiac arrhythmias. No history of any congestion heart failure. On today's evaluation of 04/18/2020, the patient is feeling much better compared to yesterday. The patient is less spastic and wheezing. No significant shortness of breath. Remains on antibiotics. Remains on steroids. Remains on bronchodilators. No change in the mental status. No other new complaints otherwise for now. ProBNP level was 1460. Troponin was at 0.06. UA was negative. On today's evaluation of 04/19/2023, the patient still having some limited congestive cough. Decided to proceed with antibiotics for another 24-48 hours. Decided to continue the IV Solu-Medrol. She remains on oxygen 2 L/m nasal cannula. No chest pain. No interval worsening shortness of breath. No new labs are available from today. No other complaints otherwise. The echo of the heart was completed and the patient has a preserved LV function. As mentioned, there was a structure measuring 2.9 cm and the IVC/RA junction. Could be an artifact. BUBBA may need to be considered by cardiology. On today's evaluation of 04/20/2023, the patient is still having some limited bronchospasm and wheezing. Family is very much concerned and for that reason the patient will be kept on the same bronchodilator regimen and steroids. She r emains on 2 L of oxygen by nasal cannula. She is ambulating. Patient herself denies having any specific complaints. Labs need to be checked today. No altered mentation. She is hard of hearing. She remains on Solu-Medrol 40 mg every 8 hours. She is also on Symbicort and DuoNeb updrafts. On 04/21/2023, the patient is still having some limited wheezing and shortness of breath and cough and congestion. Noted the patient advanced COPD the patient has been maintained on oxygen and not patient basis. The chest x-ray was done that showed atelectatic change in lung bases along possibility of small bilateral pleural effusions. She is weak. Physical therapy is available and they have been involved in her case. She is on Symbicort. She is on DuoNeb updrafts. No other the patient take Trelegy Ellipta on outpatient basis. The white cell count from yesterday of 21 with a hemoglobin of 12.3. Sodium is 131 and a potassium level is at 4.4. Her pro calcitonin level at time of admission was essentially normal at 0.05. On her chest x-ray, she has a component of cardiomegaly. The patient is seen today 04/22/2019 for follow-up on the regular medical floor. She is currently sitting up in a chair at the bedside. Awake and alert in no acute distress. Feeling better today. She is maintaining good O2 saturations in the 90s on 2 L/m per nasal cannula. On sounds with crackles in left base which x-rays of showed atelectasis and a large hiatal hernia. Her pro calcitonin was 0.05. CT angiogram reveals a large right hiatal hernia without evidence of mass. There is right middle lobe bronchiectasis and atelectasis. Scattered reticular opacities correlate for atypical pneumonia. Superimposed nodular densities in the left lung base. No evidence of pulmonary embolus, dissection or aneurysm. There is mild cardiomegaly with evidence of pulmonary hypertension and severe coronary atherosclerosis. Remains on DuoNeb inhalations, Symbicort, Solu-Medrol. Lovenox for DVT prophylaxis. Objective - Vital Signs Vital signs: Vital Signs Temp 98.8 F 04/22/23 12:04 Pulse 84 04/22/23 12:42 Resp 17 04/22/23 12:04 BP 130/76 04/22/23 12:04 Pulse Ox 97 04/22/23 12:04 FiO2 Intake & Output 04/21/23 04/22/23 04/22/23 18:59 06:59 18:59 Weight 56.5 kg Other: Voiding Method Bedside Commode # Voids 3 2 1 - Exam GENERAL EXAM: Alert, is an 87-year-old female, on 2 L nasal cannula, up in a chair, comfortable in no apparent distress. HEAD: Normocephalic. EYES: Normal reaction of pupils, equal size. NOSE: Clear with pink turbinates. THROAT: No erythema or exudates. NECK: No masses, no JVD. CHEST: No chest wall deformity. LUNGS: Equal air entry with few scattered rhonchi in the right lung base. CVS: S1 and S2 normal with no audible murmur, regular rhythm. ABDOMEN: No hepatosplenomegaly, normal bowel sounds, no guarding or rigidity. SPINE: No scoliosis or deformity SKIN: No rashes CENTRAL NERVOUS SYSTEM: No focal deficits, tone is normal in all 4 extremities. EXTREMITIES: There is no peripheral edema. No clubbing, no cyanosis. Peripheral pulses are intact. - Labs CBC & Chem 7: 04/20/23 14:11 04/20/23 14:11 Assessment and Plan Assessment: Acute exacerbation of COPD with secondary shortness of breath. Rule out atypical pneumonia. Rule out tracheobronchitis. The viral screening was negative. Chest x-ray revealing a hiatal hernia. No consolidation or airspace disease, clinically stable, still slightly bronchospastic. Pro-calcitonin was 0.05. CT angiogram reveals a large right hiatal hernia without evidence of mass. There is right middle lobe bronchiectasis and atelectasis. Scattered reticular opacities correlate for atypical pneumonia. Superimposed nodular densities in the left lung base. No evidence of pulmonary embolus, dissection or aneurysm. There is mild cardiomegaly with evidence of pulmonary hypertension and severe coronary atherosclerosis. Advanced COPD with chronic hypoxic respiratory failure maintained on O2, also maintain on Trelegy Ellipta on outpatient basis Low-grade fever currently under investigation Leukocytosis, on that investigation Paroxysmal A. fib, current rhythm is sinus Obesity Hypertension Hyperlipidemia Plan: The patient was seen and evaluated CT angiogram and medications reviewed Suspect some aspiration from the large hiatal hernia Continue bronchodilators, steroids Titrate the FiO2 as tolerated Plan is to return home with homecare at discharge I have personally seen and examined the patient, performed the documentation and the assessment and plan as written. Number of minutes spent on the visit: 10.
--- NOTE | 2023-04-22 19:20 | P.PN ---
Progress Note - Text Progress Note Date: 04/22/23 Chief Complaint: Increasing cough This is a 87-year-old patient who follows with Dr. Jennifer Martin. At the bedside as pressures patient's daughter. Patient lives with her and her son-in-law. Patient presents with significant increased wheezing and coughing for 1 day. Does have some cough and a baseline. Feeling rather cold. Also some edema. Decreased appetite yesterday. Has 2 L off oxygen at home and a walker and at home. Gets easily short winded. She was long-term exposed to secondhand smoke. Does use a walker at baseline. 04/19/2023: Some bouts of coughing still present. The breathing a bit better. Started 8 better. Daughter the bedside. Discussed 04/20/2023: Up in a recliner. Intermittent coughing. Encouraged incentive spirometry. Still some shortness of breath. Discussed with the patient daughter at the bedside. 04/21/2023: Breathing slowly improving. Intermittent cough. Up in a recliner. Eating better. Discussed with the patient and daughter the bedside. Increase activity. 04/22/2023: Patient continues to have cough. Unable to expectorate. Flutter valve added. CT angiogram chest: Bronchiectasis of the right middle lobe. Large tattoo hernia. Gallstones. As patient has been rather weak looking into rehab placement. Social work PTOT consulted. Event monitor being placed. This morning discussed with the patient and the daughter. Active Medications Albuterol/Ipratropium (Ipratropium-Albuterol 3 Ml Neb) 3 ml INHALATION RT-QID [facility] Last Admin: 04/22/23 15:49 Dose: 3 ml Budesonide/Formoterol Fumarate (Symbicort 80-4.5 Mcg Inhaler) 2 puff INHALATION RT-BID [facility] Last Admin: 04/22/23 08:20 Dose: 2 puff Enoxaparin Sodium (Enoxaparin 40 Mg/0.4 Ml Syringe) 40 mg SQ DAILY [facility] Last Admin: 04/22/23 09:23 Dose: 40 mg Ferrous Sulfate (Ferrous Sulfate 325 Mg Tab) 325 mg PO MoWeFr@0900 [facility] Last Admin: 04/21/23 08:45 Dose: 325 mg Losartan Potassium (Losartan 50 Mg Tab) 100 mg PO DAILY [facility] Last Admin: 04/22/23 09:23 Dose: 100 mg Methylprednisolone Sodium Succinate (Methylprednisolone Sod Succi 125 Mg/2 Ml Vial) 40 mg IV Q8H [facility] Last Admin: 04/22/23 13:36 Dose: 40 mg Metoprolol Tartrate (Metoprolol Tartrate 25 Mg Tab) 25 mg PO BID [facility] Last Admin: 04/22/23 09:23 Dose: 25 mg Miscellaneous Information (Pneumonia Protocol Utilized 1 Each Misc) 1 each PO ONCE PRN PRN Reason: Per Protocol Multivitamins (Multivitamins, Thera 1 Each Tab) 1 each PO DAILY [facility] Last Admin: 04/22/23 09:23 Dose: 1 each Pantoprazole Sodium (Pantoprazole 40 Mg Tablet) 40 mg PO DAILY [facility] Last Admin: 04/22/23 09:23 Dose: 40 mg Social history: Lives with her daughter and son-in-law. Long-term exposure to secondhand smoke. Alcohol occasionally. Physical examination: VITAL SIGNS: 98.8, 68, 17, 1:30/76, 97% on 2 L GENERAL: In a chair, division coughing EYES: Pupils equal. Conjunctiva normal. HEENT: External appearance of nose and ears normal, oral cavity grossly normal. NECK: JVD not raised; masses not palpable. HEART: First and second heart sounds are normal; no edema. LUNGS: Respiratory rate increased; decreased breath sounds, some wheezing ABDOMEN: Soft, nontender, liver spleen not palpable, no masses palpable. PSYCH: Alert and oriented x3; mood and affect normal. MUSCULOSKELETAL:No Clubbing/cyanosis;muscles-grossly intact. OA INVESTIGATIONS, reviewed in the clinical context: CT angiogram of the chest [April 22] right middle lobe bronchiectasis. Large hiatal hernia. Gallstones. Possibly granulomatous disease. 04/20/2023: White count 21.3 hemoglobin 12.3 potassium 4.4 creatinine 0.67 2-D echocardiogram: EF 60-65%. Moderate pulmonary hypertension.. Moderate mitral and tricuspid regurgitation. 2.9 x 1.4 cm echodensity noted in the IVC right atrial junction. Artifact versus mass. White count 19 hemoglobin 11.9 platelets 139 sodium 131 potassium 3.8 BUN 18 creatinine 0.50 Troponin I 0.063 ProBNP 1460 procalcitonin 0.05 Influenza type A, type B, RSV, COVID-19: Not detected EKG tracing personally reviewed by me-normal sinus rhythm. Some flipped T waves in inferolateral leads Chest x-ray film personally reviewed by me-possible infiltrate Assessment and plan: -Acute COPD exacerbation in a patient with long exposure to secondhand smoking. Possibly precipitated by viral bronchitis: Improving DuoNeb. IV Solu-Medrol 40 mg every 8. 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 No clinical evidence of ACS. Cardiology following -2.9 x 1.4 cm echodensity at the IVC/right atrial junction. Artifact versus mass. Cardiology plan to do a BUBBA -Acute medical debility. Looking at rehab. PTOT. -Full code Follow with pulmonary and cartilage E. Looking at rehab placement. Continue current medications. Past Medical History Past Medical History: COPD, Hyperlipidemia, Hypertension History of Any Multi-Drug Resistant Organisms: None Reported Past Surgical History: Tonsillectomy Past Anesthesia/Blood Transfusion Reactions: No Reported Reaction Past Psychological History: No Psychological Hx Reported Smoking Status: Former smoker Past Alcohol Use History: Occasional Past Drug Use History: None Reported
[2023-04-23] MEDS: methylPREDNISolone SOD SUCCI 125 MG/2 ML VIAL IV SCH (05:12)
[2023-04-23 06:48] LABS: Basophils # (A) 0.1 k/uL (0-0.2); Basophils % (A) 1 %; Eosinophils % (A) 0 %; HCT 40.9 % (34.0-46.0); Hypochromasia Moderate; Lymphocytes # (A) 0.7 k/uL (1.0-4.8); Lymphocytes % (A) 3 %; MCH 29.9 pg (25.0-35.0); MCHC 31.7 g/dL (31.0-37.0); MCV 94.3 fL (80.0-100.0); Mean Platelet Volume 7.9; Monocytes % (A) 5 %; Neutrophils # (A) 17.7 k/uL (1.3-7.7); Neutrophils % (A) 90 %; Platelet Count 227 k/uL (150-450); RBC 4.34 m/uL (3.80-5.40); RDW 12.9 % (11.5-15.5); WBC 19.7 k/uL (3.8-10.6)
[2023-04-23 06:57] LABS: African American GFR (CKD) >90 (>60 ml/min/1.73 sqM); Anion Gap 2 mmol/L; Blood Urea Nitrogen 23 mg/dL (7-17); Calcium 8.4 mg/dL (8.4-10.2); Carbon Dioxide 38 mmol/L (22-30); Chloride 91 mmol/L (98-107); Glucose 123 mg/dL (74-99); Non-African American GFR(CKD) 80 (>60 ml/min/1.73 sqM); Potassium 4.6 mmol/L (3.5-5.1); Sodium 131 mmol/L (137-145)
[2023-04-23 08:05] VITALS: BP 162/95; TEMP 97.9
[2023-04-23] MEDS: FERROUS SULFATE 325 MG TAB PO SCH (08:05)
[2023-04-23] MEDS: MULTIVITAMINS, THERA 1 EACH TAB PO SCH (08:05)
[2023-04-23] MEDS: PANTOPRAZOLE 40 MG TABLET PO SCH (08:05)
[2023-04-23] MEDS: METOPROLOL TARTRATE 25 MG TAB PO SCH (08:05)
[2023-04-23] MEDS: LOSARTAN 50 MG TAB PO SCH (08:05)
[2023-04-23] MEDS: ENOXAPARIN 40 MG/0.4 ML SYRINGE SQ SCH (08:05)
--- NOTE | 2023-04-23 08:28 | P.PN ---
Subjective HISTORY OF PRESENT ILLNESS: This is a 87-year-old female with a past medical history significant for hypertension. Patient does not follow with a prop maker. We have been asked to see the patient in consultation for arrhythmia. Patient examined at the bedside. Patient presented to the hospital with a chief complaint of shortness of breath. She states she's been feeling short of breath for the past few days. She denies any chest pain or pressure. She denies any palpitations. According to the ER note, the patient was found to be tachycardic in route to the hospital with a heart rate in the 170s. There are no telemetry tracings available for review and no EKG completed at the time of evaluation. It is unknown what type of arrhythmia the patient was having at that time. The patient denies any history of arrhythmias including atrial fibrillation. She is maintaining sinus mechanism at the time of examination. * Chest xray COPD, scoliosis, borderline to mild cardiomegaly, hiatal hernia at least moderate in size, similar interstitial changes. Interstitial changes are overall less pronounced but the focal patchy bibasilar infiltrates are more pronounced. * Laboratory data: W BC 19.0. ProBNP 1460. Troponin 0.063. * Current home cardiac medications include losartan 100 mg daily and hydrochlorothiazide 25 mg daily * No previous echocardiogram available for review 04/22/2023 Patient examined this morning. She is sitting up in the chair. Family is present. Patient denies any chest pain or pressure. She denies any shortness of breath. She worked with physical therapy this morning. Telemetry reveals sinus mechanism. Patient is scheduled to undergo CT angio today. 04/23/2023 Patient examined this morning at the bedside. There is no family present. CTA completed revealing large hiatal hernia, scattered reticular opacities correlate for atypical pneumonia, no evidence for pulmonary embolism dissection or aneurysm, mild cardiomegaly likely with evidence of pulmonary hypertension severe coronary artery atherosclerosis, cholelithiasis, and sequela of chronic granulomatous disease. No mass visualized as suspected on echocardiogram. The patient currently denies chest pain or pressure. Denies shortness of breath. She had an event monitor placed yesterday. PHYSICAL EXAM: VITAL SIGNS: Reviewed. GENERAL: Well-developed in no acute distress. HEENT: Head is normocephalic. Pupils are equal, round. Sclerae anicteric. Mucous membranes of the mouth are moist. Neck supple. No JVD or thyromegaly LUNGS: Respirations even and unlabored. Lungs essentially clear to auscultation bilaterally. HEART: Regular rate and rhythm. S1 and S2 heard. ABDOMEN: Soft. Nondistended. Nontender. EXTREMITIES: Normal range of motion. No clubbing or cyanosis. Peripheral pulses intact. No lower extremity edema NEUROLOGIC: Awake and alert. Oriented x 3. ASSESSMENT: Shortness of breath Acute exacerbation of COPD Chronic hypoxic respiratory failure on home oxygen Possible pneumonia Leukocytosis with low-grade fever Tachycardia, unclear of rhythm as no telemetry tracings or EKG are available for review, patient denies history of atrial fibrillation Abnormal troponin, no evidence of acute coronary syndrome, may be secondary to type II [place] secondary to oxygen supply demand mismatch Hypertension 2.9x1.4 cm mass versus artifact noted at IVC and right atrial junction, per echocardiogram, not visualized on CTA PLAN: Continue telemetry monitoring Patient received event monitor yesterday No evidence of IVC/right atrial junction mass CTA dictation as thought to be visualized echocardiogram Patient is stable for discharge today from a cardiac standpoint Nurse practitioner note has been reviewed by physician. Signing provider agrees with the documented findings, assessment, and plan of care. Objective - Vital Signs Vital signs: Vital Signs Temp 97.9 F 04/23/23 07:49 Pulse 83 04/23/23 07:49 Resp 17 04/23/23 07:49 BP 162/95 04/23/23 07:49 Pulse Ox 98 04/23/23 07:49 FiO2 Intake & Output 04/22/23 04/23/23 04/23/23 18:59 06:59 18:59 Weight 56.7 kg Other: Voiding Method Bedside Commode # Voids 2 1 - Labs CBC & Chem 7: 04/23/23 05:56 04/23/23 05:56 Labs: Abnormal Lab Results - Last 24 Hours (Table) 04/23/23 04/23/23 Range/Units 05:56 05:56 WBC 19.7 H (3.8-10.6) k/uL Neutrophils # 17.7 H (1.3-7.7) k/uL Lymphocytes # 0.7 L (1.0-4.8) k/uL Sodium 131 L (137-145) mmol/L Chloride 91 L (98-107) mmol/L Carbon Dioxide 38 H (22-30) mmol/L BUN 23 H (7-17) mg/dL Glucose 123 H (74-99) mg/dL Microbiology - Last 24 Hours (Table) 04/17/23 13:08 Blood Culture - Final Blood
[2023-04-23] MEDS: IPRATROPIUM-ALBUTEROL 3 ML NEB INHALATION SCH ×2 (09:11→11:44)
[2023-04-23] MEDS: SYMBICORT 80-4.5 MCG INHALER INHALATION SCH (09:11)
[2023-04-23 09:21] VITALS: RESP 18
[2023-04-23 12:06] VITALS: PULSE 86
--- NOTE | 2023-04-23 13:18 | P.PN ---
Subjective Progress Note Date: 04/23/23 There is an 87-year-old female patient with known history of oxygen dependent COPD with a living in [place] and she has been seeing Dr. Jac Deleon regarding her COPD and the patient will maintain on Trelegy Ellipta one inhalation daily and it'll HFA on an as-needed basis. Around 6 months ago she was hospitalized at [facility] and that showed where she was treated for UTI and suspected pneumonia. The patient was given broad-spectrum antibiotics and ultimately she was discharged home. No history of any cardiac disease. She presented to us with generalized weakness, cough, congestion, shortness of breath and increased wheezing. The chest x-ray shows a hiatal hernia and increased interstitial prominence and the patient also had some leukocytosis. She was found to be feverish at home and her current temperature is 99.9. She is hemodynamically stable. No altered mentation. She is hard of hearing. In the emergency, the patient went into atrial fibrillation with rapid ventricular response. The patient was treated accordingly and her current rhythm is back into sinus with frequent PACs. She was started on IV fluids and the patient was given a liter bolus. She was started on a combination of Rocephin and Zithromax. No focal neurological deficit. No nausea or vomiting. No abdominal pain. No aspiration. Maintain on Prilosec on outpatient basis. No previous history of cardiac arrhythmias. No history of any congestion heart failure. On today's evaluation of 04/18/2020, the patient is feeling much better compared to yesterday. The patient is less spastic and wheezing. No significant shortness of breath. Remains on antibiotics. Remains on steroids. Remains on bronchodilators. No change in the mental status. No other new complaints otherwise for now. ProBNP level was 1460. Troponin was at 0.06. UA was negative. On today's evaluation of 04/19/2023, the patient still having some limited congestive cough. Decided to proceed with antibiotics for another 24-48 hours. Decided to continue the IV Solu-Medrol. She remains on oxygen 2 L/m nasal cannula. No chest pain. No interval worsening shortness of breath. No new labs are available from today. No other complaints otherwise. The echo of the heart was completed and the patient has a preserved LV function. As mentioned, there was a structure measuring 2.9 cm and the IVC/RA junction. Could be an artifact. BUBBA may need to be considered by cardiology. On today's evaluation of 04/20/2023, the patient is still having some limited bronchospasm and wheezing. Family is very much concerned and for that reason the patient will be kept on the same bronchodilator regimen and steroids. She r emains on 2 L of oxygen by nasal cannula. She is ambulating. Patient herself denies having any specific complaints. Labs need to be checked today. No altered mentation. She is hard of hearing. She remains on Solu-Medrol 40 mg every 8 hours. She is also on Symbicort and DuoNeb updrafts. On 04/21/2023, the patient is still having some limited wheezing and shortness of breath and cough and congestion. Noted the patient advanced COPD the patient has been maintained on oxygen and not patient basis. The chest x-ray was done that showed atelectatic change in lung bases along possibility of small bilateral pleural effusions. She is weak. Physical therapy is available and they have been involved in her case. She is on Symbicort. She is on DuoNeb updrafts. No other the patient take Trelegy Ellipta on outpatient basis. The white cell count from yesterday of 21 with a hemoglobin of 12.3. Sodium is 131 and a potassium level is at 4.4. Her pro calcitonin level at time of admission was essentially normal at 0.05. On her chest x-ray, she has a component of cardiomegaly. The patient is seen today 04/22/2019 for follow-up on the regular medical floor. She is currently sitting up in a chair at the bedside. Awake and alert in no acute distress. Feeling better today. She is maintaining good O2 saturations in the 90s on 2 L/m per nasal cannula. On sounds with crackles in left base which x-rays of showed atelectasis and a large hiatal hernia. Her pro calcitonin was 0.05. CT angiogram reveals a large right hiatal hernia without evidence of mass. There is right middle lobe bronchiectasis and atelectasis. Scattered reticular opacities correlate for atypical pneumonia. Superimposed nodular densities in the left lung base. No evidence of pulmonary embolus, dissection or aneurysm. There is mild cardiomegaly with evidence of pulmonary hypertension and severe coronary atherosclerosis. Remains on DuoNeb inhalations, Symbicort, Solu-Medrol. Lovenox for DVT prophylaxis. The patient is seen today 04/23/2023 in follow-up on the regular medical floor. She is awake and alert in no acute distress. Sitting up in a chair at the bedside. Maintaining good O2 saturations in the 90s on 2 L/m per nasal cannula. Blood cultures revealed no growth. White count 19.7. Hemoglobin 13.0. Platelets 227. Sodium 131 potassium 4.6. Bicarb 38. BUN 23. Creatinine 0.65. Glucose 123. Pro calcitonin 0.02. Is continued on Symbicort, DuoNeb inhalations, Solu-Medrol. Lovenox for DVT prophylaxis. Objective - Vital Signs Vital signs: Vital Signs Temp 97.9 F 04/23/23 07:49 Pulse 86 04/23/23 11:58 Resp 18 04/23/23 08:00 BP 162/95 04/23/23 07:49 Pulse Ox 97 04/23/23 09:13 FiO2 Intake & Output 04/22/23 04/23/23 04/23/23 18:59 06:59 18:59 Weight 56.7 kg Other: Voiding Method Bedside Commode # Voids 2 1 - Exam GENERAL EXAM: Alert, very pleasant 87-year-old female, on 2 L nasal cannula, up in a chair, in no apparent distress. HEAD: Normocephalic. EYES: Normal reaction of pupils, equal size. NOSE: Clear with pink turbinates. THROAT: No erythema or exudates. NECK: No masses, no JVD. CHEST: No chest wall deformity. LUNGS: Equal air entry with few scattered rhonchi in the right lung base. CVS: S1 and S2 normal with no audible murmur, regular rhythm. ABDOMEN: No hepatosplenomegaly, normal bowel sounds, no guarding or rigidity. SPINE: No scoliosis or deformity SKIN: No rashes CENTRAL NERVOUS SYSTEM: No focal deficits, tone is normal in all 4 extremities. EXTREMITIES: There is no peripheral edema. No clubbing, no cyanosis. Peripheral pulses are intact. - Labs CBC & Chem 7: 04/23/23 05:56 04/23/23 05:56 Labs: Abnormal Lab Results - Last 24 Hours (Table) 04/23/23 04/23/23 Range/Units 05:56 05:56 WBC 19.7 H (3.8-10.6) k/uL Neutrophils # 17.7 H (1.3-7.7) k/uL Lymphocytes # 0.7 L (1.0-4.8) k/uL Sodium 131 L (137-145) mmol/L Chloride 91 L (98-107) mmol/L Carbon Dioxide 38 H (22-30) mmol/L BUN 23 H (7-17) mg/dL Glucose 123 H (74-99) mg/dL Microbiology - Last 24 Hours (Table) 04/17/23 13:08 Blood Culture - Final Blood Assessment and Plan Assessment: Acute exacerbation of COPD with secondary shortness of breath. The viral screening was negative. Chest x-ray revealing a hiatal hernia. No c onsolidation or airspace disease, clinically stable, still slightly bronchospastic. Pro-calcitonin was 0.02. CT angiogram reveals a large right hiatal hernia without evidence of mass. There is right middle lobe bronchiectasis and atelectasis. Scattered reticular opacities correlate for atypical pneumonia. Superimposed nodular densities in the left lung base. No evidence of pulmonary embolus, dissection or aneurysm. There is mild cardiomegaly with evidence of pulmonary hypertension and severe coronary atherosclerosis. Advanced COPD with chronic hypoxic respiratory failure maintained on O2, also maintain on Trelegy Ellipta on outpatient basis Low-grade fever currently under investigation Leukocytosis, improving Paroxysmal A. fib, current rhythm is sinus Obesity Hypertension Hyperlipidemia Plan: The patient was seen and evaluated Labs and medications reviewed Cleared for discharge from the pulmonary standpoint Continue home pulmonary medicine, oxygen Complete a prednisone taper Plan is to return home with homecare Follow-up in our office in 1 week I have personally seen and examined the patient, performed the documentation and the assessment and plan as written. Number of minutes spent on the visit: 10.
--- NOTE | 2023-04-23 15:23 | P.DS ---
Providers Date of admission: 04/17/23 14:24 Expected date of discharge: 04/23/23 Attending physician: Joseluis Rosa Consults: 04/17/23 14:25 Consult Physician Routine Consulting Provider: Emma Cuello Consult Reason/Comments: respiratory failure Do you want consulting provider notified?: Yes 04/22/23 11:47 Consult Physician Routine Consulting Provider: Diego Vu Consult Reason/Comments: rehab Do you want consulting provider notified?: Yes Primary care physician: Jennifer Martin [facility] Course: Chief Complaint: Increasing cough This is a 87-year-old patient who follows with Dr. Jennifer Martin. At the bedside as pressures patient's daughter. Patient lives with her and her son-in-law. Patient presents with significant increased wheezing and coughing for 1 day. Does have some cough and a baseline. Feeling rather cold. Also some edema. Decreased appetite yesterday. Has 2 L off oxygen at home and a walker and at home. Gets easily short winded. She was long-term exposed to secondhand smoke. Does use a walker at baseline. 04/19/2023: Some bouts of coughing still present. The breathing a bit better. Started 8 better. Daughter the bedside. Discussed 04/20/2023: Up in a recliner. Intermittent coughing. Encouraged incentive spirometry. Still some shortness of breath. Discussed with the patient daughter at the bedside. 04/21/2023: Breathing slowly improving. Intermittent cough. Up in a recliner. Eating better. Discussed with the patient and daughter the bedside. Increase activity. 04/22/2023: Patient continues to have cough. Unable to expectorate. Flutter valve added. CT angiogram chest: Bronchiectasis of the right middle lobe. Large tattoo hernia. Gallstones. As patient has been rather weak looking into rehab placement. Social work PTOT consulted. Event monitor being placed. This morning discussed with the patient and the daughter. 04/23/2023: Doing better. Patient's other sister is here today. Wishes to take the patient home. She drops and a few times a day. Patient agrees with the same. Does not want to go to rehab. Discussed with Dr. MARCELLUS Soni, cardiology. Likely 2-D echo finding was an artifact versus part of hiatal hernia. Patient cleared by pulmonary. Questions answered. Continue incentive spirometry. Prednisone taper. Follow-up with cardiology and pulmonary. Discussion and discharge planning more than 35 minutes Social history: Lives with her daughter and son-in-law. Long-term exposure to secondhand smoke. Alcohol occasionally. Physical examination: VITAL SIGNS: 97.9, 83, 17, 1 G-tube 95, 98% on 2 L GENERAL: In bed, comfortable EYES: Pupils equal. Conjunctiva normal. HEENT: External appearance of nose and ears normal, oral cavity grossly normal. NECK: JVD not raised; masses not palpable. HEART: First and second heart sounds are normal; no edema. LUNGS: Respiratory rate normal decreased breath sounds, some wheezing ABDOMEN: Soft, nontender, liver spleen not palpable, no masses palpable. PSYCH: Alert and oriented x3; mood and affect normal. MUSCULOSKELETAL:No Clubbing/cyanosis;muscles-grossly intact. OA INVESTIGATIONS, reviewed in the clinical context: 04/23/2023: White count 19.7 hemoglobin 13 potassium 4.6 creatinine 0.65. Procalcitonin 0.02 CT angiogram of the chest [April 22] right middle lobe bronchiectasis. Large hiatal hernia. Gallstones. Possibly granulomatous disease. 04/20/2023: White count 21.3 hemoglobin 12.3 potassium 4.4 creatinine 0.67 2-D echocardiogram: EF 60-65%. Moderate pulmonary hypertension.. Moderate mitral and tricuspid regurgitation. 2.9 x 1.4 cm echodensity noted in the IVC right atrial junction. Artifact versus mass. White count 19 hemoglobin 11.9 platelets 139 sodium 131 potassium 3.8 BUN 18 creatinine 0.50 Troponin I 0.063 ProBNP 1460 procalcitonin 0.05 Influenza type A, type B, RSV, COVID-19: Not detected EKG tracing personally reviewed by me-normal sinus rhythm. Some flipped T waves in inferolateral leads Chest x-ray film personally reviewed by me-possible infiltrate Assessment and plan: -Acute COPD exacerbation in a patient with long exposure to secondhand smoking. Possibly precipitated by viral bronchitis: Better DuoNeb. IV Solu-Medrol given. 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 No clinical evidence of ACS. Cardiology following -2.9 x 1.4 cm echodensity at the IVC/right atrial junction. [place] It to be artifact. CT chest unremarkable. Was discussed with oncology. -Full code Disposition: Home Past Medical History Past Medical History: COPD, Hyperlipidemia, Hypertension History of Any Multi-Drug Resistant Organisms: None Reported Past Surgical History: Tonsillectomy Past Anesthesia/Blood Transfusion Reactions: No Reported Reaction Past Psychological History: No Psychological Hx Reported Smoking Status: Former smoker Past Alcohol Use History: Occasional Past Drug Use History: None Reported Plan - Discharge Summary Discharge Rx Participant: Yes New Discharge Prescriptions: New Ipratropium-Albuterol Nebulize [Duoneb 0.5 mg-3 mg/3 ml Soln] 3 ml INHALATION TID #90 each Metoprolol Tartrate [Lopressor] 25 mg PO BID #60 tab predniSONE 10 mg PO DAILY #30 tab Continue Magnesium(Unknown Dose) 1 tab PO DAILY Omeprazole 20 mg PO DAILY Losartan Potassium 100 mg PO DAILY Fluticasone/Umeclidin/Vilanter [Trelegy Ellipta 100-62.5-25] 1 puff INHALATION RT-DAILY Alendronate Sodium [Fosamax] 70 mg PO TU Albuterol Sulfate [Albuterol Sulfate Hfa] 2 puff INHALATION RT-Q4H PRN PRN Reason: Shortness Of Breath Multivitamin [Multivitamins Adult Gummies] 2 tab PO DAILY Ferrous Sulfate [Iron (65 MG Elemental)] 325 mg PO MOWEFR Vitamin D3(Unknown Dose) 1 tab PO DAILY Discontinued hydroCHLOROthiazide 25 mg PO DAILY Discharge Medication List Albuterol Sulfate [Albuterol Sulfate Hfa] 2 puff INHALATION RT-Q4H PRN 04/17/23 [History] Alendronate Sodium [Fosamax] 70 mg PO TU 04/17/23 [History] Ferrous Sulfate [Iron (65 MG Elemental)] 325 mg PO MOWEFR 04/17/23 [History] Fluticasone/Umeclidin/Vilanter [Trelegy Ellipta 100-62.5-25] 1 puff INHALATION RT-DAILY 04/17/23 [History] Losartan Potassium 100 mg PO DAILY 04/17/23 [History] Magnesium(Unknown Dose) 1 tab PO DAILY 04/17/23 [History] Multivitamin [Multivitamins Adult Gummies] 2 tab PO DAILY 04/17/23 [History] Omeprazole 20 mg PO DAILY 04/17/23 [History] Vitamin D3(Unknown Dose) 1 tab PO DAILY 04/17/23 [History] Ipratropium-Albuterol Nebulize [Duoneb 0.5 mg-3 mg/3 ml Soln] 3 ml INHALATION TID #90 each 04/23/23 [Rx] Metoprolol Tartrate [Lopressor] 25 mg PO BID #60 tab 04/23/23 [Rx] predniSONE 10 mg PO DAILY #30 tab 04/23/23 [Rx] Follow up Appointment(s)/Referral(s): Cuong Cline MD [Medical Doctor] - 1 Week (office will call with appointment time) [facility], [NON-STAFF] - Jennifer Martin MD [Primary Care Provider] - 1-2 Days (office closed at time of discharge) Emma Cuello MD [STAFF PHYSICIAN] - 05/16/23 9:30 am Activity/Diet/Wound Care/Special Instructions: home oxygen 2/l Discharge Disposition: HOME WITH HOME HEALTH SERVICES
== END 2023-04-23 13:27 | disposition home health service (06) | DRG 190 ==
LOC: EC 11:30 → 3SCARD 14:24 → 4SSUR 04-20 04:14
PROVIDERS: ADMIT Hospitalist; ATTEND Hospitalist
DX: J44.1 Chronic obstructive pulmonary disease with (acute) exacerbation (principal); J18.9 Pneumonia, unspecified organism; J96.21 Acute and chronic respiratory failure with hypoxia; J47.0 Bronchiectasis with acute lower respiratory infection; J44.0 Chronic obstructive pulmonary disease with (acute) lower respiratory infection; I27.29 Other secondary pulmonary hypertension; M41.85 Other forms of scoliosis, thoracolumbar region; J84.10 Pulmonary fibrosis, unspecified; I48.0 Paroxysmal atrial fibrillation; I11.9 Hypertensive heart disease without heart failure; E66.9 Obesity, unspecified; I08.1 Rheumatic disorders of both mitral and tricuspid valves; I25.10 Atherosclerotic heart disease of native coronary artery without angina pectoris; K21.9 Gastro-esophageal reflux disease without esophagitis; R26.9 Unspecified abnormalities of gait and mobility; E78.5 Hyperlipidemia, unspecified; K44.9 Diaphragmatic hernia without obstruction or gangrene; H91.90 Unspecified hearing loss, unspecified ear; K80.20 Calculus of gallbladder without cholecystitis without obstruction; Z77.22 Contact with and (suspected) exposure to environmental tobacco smoke (acute) (chronic); Z99.81 Dependence on supplemental oxygen; Z68.27 Body mass index [BMI] 27.0-27.9, adult; Z11.52 Encounter for screening for COVID-19; Z87.891 Personal history of nicotine dependence; Z79.83 Long term (current) use of bisphosphonates; Z79.51 Long term (current) use of inhaled steroids; Z28.310 Unvaccinated for COVID-19; Z87.01 Personal history of pneumonia (recurrent); Z79.899 Other long term (current) drug therapy; Z88.0 Allergy status to penicillin
CPT/HCPCS: 36415; 71045; 71046; 71275; 80048; 80053; 81001; 83605; 83735; 83880; 84145; 84484; 85025; 87040; 87636; 93270; 93306; 94640; 94667; 94668; 94760; 96361; 96365; 96366; 96372; 96375; 99285

== ENCOUNTER 2023-08-08 01:45 | Inpatient (IN) | payer MEDICARE, OTHER ==
[2023-08-08] MEDS: NALOXONE 0.4 MG/ML 1 ML VIAL IVP STA (01:54)
--- NOTE | 2023-08-08 01:59 | ED ---
CPR HPI - General Chief Complaint: Cardiac Arrest/CPR Stated Complaint: Cardiac arrest Source: EMS, RN notes reviewed, old records reviewed, Caregiver Mode of arrival: EMS Limitations: altered mental status, physical limitation - History of Present Illness Initial Comments: This is a patient who is 88 years old and comes in after being found unresponsive under CPR pretenses patient is brought in under ACLS protocol after having return of spontaneous circulation found to be currently in atrial fibrillation with RVR positive pulse with positive intubation MD Complaint: found unresponsive, stopped breathing, collapsed during rest -: minute(s) Bystander CPR Performed: No 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 Shock Advised: No Initial Findings in the Field: unresponsive, no respirations, no pulse ROSC in the Field: Yes Associated Injuries: No Treatments Prior to Arrival: intubation, chest compressions, epinephrine mgs # - Related Data Home Medications Medication Instructions Recorded Confirmed Alendronate Sodium [Fosamax] 70 mg PO TU 04/17/23 08/08/23 Ferrous Sulfate [Iron (65 MG 325 mg PO MOWEFR 04/17/23 08/08/23 Elemental)] Fluticasone/Umeclidin/Vilanter 1 puff INHALATION RT-DAILY 04/17/23 08/08/23 [Trelegy Ellipta 100-62.5-25] Losartan Potassium 100 mg PO W/SUPPER 04/17/23 08/08/23 Multivitamin [Multivitamins Adult 2 tab PO DAILY 04/17/23 08/08/23 Gummies] Apixaban [Eliquis] 5 mg PO BID 08/08/23 08/08/23 Cholecalciferol [Vitamin D3 (25 25 mcg PO SUTUTHSA 08/08/23 08/08/23 Mcg = 1000 Iu)] Famotidine 20 mg PO HS 08/08/23 08/08/23 Furosemide [Lasix] 20 mg PO DAILY 08/08/23 08/08/23 Ipratropium-Albuterol Nebulize 3 ml INHALATION RT-TID 08/08/23 08/08/23 [Duoneb 0.5 mg-3 mg/3 ml Soln] Magnesium Oxide [Mag-Ox] 400 mg PO DAILY 08/08/23 08/08/23 Metoprolol Tartrate [Lopressor] 25 mg PO HS 08/08/23 08/08/23 Metoprolol Tartrate [Lopressor] 50 mg PO DAILY 08/08/23 08/08/23 Omeprazole [PriLOSEC] 40 mg PO AC-BID 08/08/23 08/08/23 traZODone HCL [Desyrel] See Taper PO HS 08/08/23 08/08/23 Allergies Allergy/AdvReac Type Severity Reaction Status Date / Time Penicillins Allergy Rash/Hives Verified 08/08/23 07:58 Review of Systems ROS Statement: Those systems with pertinent positive or pertinent negative responses have been documented in the HPI. ROS Other: All systems not noted in ROS Statement are negative. Past Medical History Past Medical History: COPD, Hyperlipidemia, Hypertension History of Any Multi-Drug Resistant Organisms: None Reported Past Surgical History: Tonsillectomy Past Anesthesia/Blood Transfusion Reactions: No Reported Reaction Past Psychological History: No Psychological Hx Reported Smoking Status: Former smoker Past Alcohol Use History: Occasional Past Drug Use History: None Reported General Exam Limitations: altered mental status, physical limitation General appearance: obtunded, in distress Head exam: Present: atraumatic, normocephalic, normal inspection Eye exam: Present: normal appearance, other (Pupils appear to be fixed, pinpoint). Absent: scleral icterus, conjunctival injection, periorbital swelling ENT exam: Present: normal exam, mucous membranes moist Neck exam: Present: normal inspection. Absent: tenderness, meningismus, lymphadenopathy Respiratory exam: Present: other (Apnea) Cardiovascular Exam: Present: tachycardia, irregular rhythm, normal heart sounds . Absent: systolic murmur, diastolic murmur, rubs, gallop, clicks GI/Abdominal exam: Present: soft, normal bowel sounds. Absent: distended, tenderness, guarding, rebound, rigid Extremities exam: Present: normal inspection, full ROM, normal capillary refill. Absent: tenderness, pedal edema, joint swelling, calf tenderness Back exam: Present: normal inspection Neurological exam: Present: alert, oriented X3, CN II-XII intact Psychiatric exam: Present: normal affect, normal mood Skin exam: Present: warm, dry, intact, normal color. Absent: rash Course Vital Signs 08/08/23 08/08/23 08/08/23 01:46 01:54 01:58 Temperature Pulse Rate 138 H 151 H Pulse Rate [ [employer] ] Respiratory 20 20 20 Rate Blood Pressure 138/123 85/59 Blood Pressure [Left Arm] O2 Sat by Pulse 98 100 Oximetry Fraction of 100 Inspired Oxygen (FIO2) 08/08/23 08/08/23 08/08/23 02:00 02:10 02:17 Temperature Pulse Rate 113 H 115 H 115 H Pulse Rate [ [employer] ] Respiratory 20 20 20 Rate Blood Pressure 70/59 59/23 88/60 Blood Pressure [Left Arm] O2 Sat by Pulse 100 100 100 Oximetry Fraction of Inspired Oxygen (FIO2) 08/08/23 08/08/23 08/08/23 02:20 02:25 02:45 Temperature Pulse Rate 114 H 113 H 112 H Pulse Rate [ [employer] ] Respiratory 20 20 20 Rate Blood Pressure 90/69 110/55 111/97 Blood Pressure [Left Arm] O2 Sat by Pulse 100 100 100 Oximetry Fraction of Inspired Oxygen (FIO2) 08/08/23 08/08/23 08/08/23 03:02 03:05 04:00 Temperature Pulse Rate 108 H Pulse Rate [ [employer] ] Respiratory 24 24 Rate Blood Pressure 119/74 Blood Pressure [Left Arm] O2 Sat by Pulse 100 Oximetry Fraction of 50 Inspired Oxygen (FIO2) 08/08/23 08/08/23 08/08/23 04:40 05:00 06:00 Temperature Pulse Rate 123 H 122 H 128 H Pulse Rate [ [employer] ] Respiratory 24 24 24 Rate Blood Pressure 160/117 134/111 119/92 Blood Pressure [Left Arm] O2 Sat by Pulse 100 100 100 Oximetry Fraction of Inspired Oxygen (FIO2) 08/08/23 08/08/23 08/08/23 07:55 07:58 08:00 Temperature 98.5 F Pulse Rate 116 H 138 H Pulse Rate [ [employer] ] Respiratory 16 21 Rate Blood Pressure 142/94 144/91 Blood Pressure [Left Arm] O2 Sat by Pulse 100 100 Oximetry Fraction of 50 Inspired Oxygen (FIO2) 08/08/23 08/08/23 08/08/23 08:11 08:15 08:30 Temperature Pulse Rate 118 H 124 H Pulse Rate [ [employer] ] Respiratory 20 22 Rate Blood Pressure 144/104 135/83 Blood Pressure [Left Arm] O2 Sat by Pulse 100 100 Oximetry Fraction of 45 Inspired Oxygen (FIO2) 08/08/23 08/08/23 08/08/23 08:45 09:04 09:15 Temperature 98.0 F Pulse Rate 121 H 106 H 109 H Pulse Rate [ [employer] ] Respiratory 19 21 14 Rate Blood Pressure 156/105 152/102 104/89 Blood Pressure [Left Arm] O2 Sat by Pulse 100 100 100 Oximetry Fraction of Inspired Oxygen (FIO2) 08/08/23 08/08/23 08/08/23 09:30 09:45 10:00 Temperature 98.2 F Pulse Rate 92 101 H 110 H Pulse Rate [ [employer] ] Respiratory 20 16 20 Rate Blood Pressure 102/81 107/87 93/62 Blood Pressure [Left Arm] O2 Sat by Pulse 100 100 100 Oximetry Fraction of Inspired Oxygen (FIO2) 08/08/23 08/08/23 08/08/23 10:15 10:30 10:45 Temperature Pulse Rate 110 H 110 H 95 Pulse Rate [ [employer] ] Respiratory 22 24 200 H Rate Blood Pressure 151/130 160/127 126/96 Blood Pressure [Left Arm] O2 Sat by Pulse 100 100 100 Oximetry Fraction of Inspired Oxygen (FIO2) 08/08/23 08/08/23 08/08/23 11:00 11:15 11:27 Temperature Pulse Rate 96 112 H Pulse Rate [ [employer] ] Respiratory 22 20 Rate Blood Pressure 100/73 113/88 Blood Pressure [Left Arm] O2 Sat by Pulse 100 100 Oximetry Fraction of 40 Inspired Oxygen (FIO2) 08/08/23 08/08/23 08/08/23 11:30 11:35 11:46 Temperature Pulse Rate 113 H 99 124 H Pulse Rate [ [employer] ] Respiratory 18 20 Rate Blood Pressure 117/68 103/68 Blood Pressure [Left Arm] O2 Sat by Pulse 100 100 Oximetry Fraction of Inspired Oxygen (FIO2) 08/08/23 08/08/23 08/08/23 12:00 12:15 12:30 Temperature 98.6 F Pulse Rate 111 H 117 H 112 H Pulse Rate [ [employer] ] Respiratory 16 16 12 Rate Blood Pressure 107/68 104/84 112/66 Blood Pressure [Left Arm] O2 Sat by Pulse 100 99 99 Oximetry Fraction of Inspired Oxygen (FIO2) 08/08/23 08/08/23 08/08/23 13:02 13:15 13:30 Temperature 98.0 F Pulse Rate 116 H 122 H 116 H Pulse Rate [ [employer] ] Respiratory 14 14 12 Rate Blood Pressure 121/70 102/50 100/66 Blood Pressure [Left Arm] O2 Sat by Pulse 100 100 100 Oximetry Fraction of Inspired Oxygen (FIO2) 08/08/23 08/08/23 08/08/23 13:45 14:00 14:15 Temperature 98.1 F Pulse Rate 107 H 120 H 112 H Pulse Rate [ [employer] ] Respiratory 12 12 10 L Rate Blood Pressure 94/50 84/63 90/64 Blood Pressure [Left Arm] O2 Sat by Pulse 100 100 100 Oximetry Fraction of Inspired Oxygen (FIO2) 08/08/23 08/08/23 08/08/23 14:30 14:45 15:00 Temperature 98.0 F Pulse Rate 111 H 110 H 122 H Pulse Rate [ [employer] ] Respiratory 9 L 12 14 Rate Blood Pressure 77/61 83/64 100/60 Blood Pressure [Left Arm] O2 Sat by Pulse 100 100 100 Oximetry Fraction of Inspired Oxygen (FIO2) 08/08/23 08/08/23 08/08/23 15:15 15:30 15:43 Temperature Pulse Rate 117 H 118 H 104 H Pulse Rate [ [employer] ] Respiratory 16 14 Rate Blood Pressure 101/70 102/65 Blood Pressure [Left Arm] O2 Sat by Pulse 100 100 Oximetry Fraction of 40 Inspired Oxygen (FIO2) 08/08/23 08/08/23 08/08/23 15:45 15:58 16:00 Temperature 98.4 F Pulse Rate 111 H 110 H 109 H Pulse Rate [ [employer] ] Respiratory 12 12 Rate Blood Pressure 98/73 114/67 Blood Pressure [Left Arm] O2 Sat by Pulse 100 100 Oximetry Fraction of Inspired Oxygen (FIO2) 08/08/23 08/08/23 08/08/23 16:15 16:30 16:45 Temperature Pulse Rate 106 H 120 H 107 H Pulse Rate [ [employer] ] Respiratory 20 20 18 Rate Blood Pressure 102/80 86/58 90/59 Blood Pressure [Left Arm] O2 Sat by Pulse 100 100 100 Oximetry Fraction of Inspired Oxygen (FIO2) 08/08/23 08/08/23 08/08/23 17:00 17:15 17:30 Temperature 98.0 F Pulse Rate 110 H 105 H 105 H Pulse Rate [ [employer] ] Respiratory 20 20 20 Rate Blood Pressure 94/68 98/55 98/69 Blood Pressure [Left Arm] O2 Sat by Pulse 100 99 100 Oximetry Fraction of Inspired Oxygen (FIO2) 08/08/23 08/08/23 08/08/23 17:45 18:00 18:15 Temperature 98.2 F Pulse Rate 102 H 122 H 112 H Pulse Rate [ [employer] ] Respiratory 18 20 19 Rate Blood Pressure 93/76 90/70 99/58 Blood Pressure [Left Arm] O2 Sat by Pulse 100 100 100 Oximetry Fraction of Inspired Oxygen (FIO2) 08/08/23 08/08/23 08/08/23 18:30 18:45 19:15 Temperature Pulse Rate 99 103 H 102 H Pulse Rate [ [employer] ] Respiratory 20 18 18 Rate Blood Pressure 92/60 98/69 100/68 Blood Pressure [Left Arm] O2 Sat by Pulse 100 100 100 Oximetry Fraction of Inspired Oxygen (FIO2) 08/08/23 08/08/23 08/08/23 19:23 19:27 19:32 Temperature Pulse Rate 130 H 117 H Pulse Rate [ [employer] ] Respiratory Rate Blood Pressure Blood Pressure [Left Arm] O2 Sat by Pulse Oximetry Fraction of 40 Inspired Oxygen (FIO2) 08/08/23 08/08/23 08/08/23 19:33 19:45 20:30 Temperature Pulse Rate 120 H 112 H 130 H Pulse Rate [ [employer] ] Respiratory 16 Rate Blood Pressure 107/62 Blood Pressure [Left Arm] O2 Sat by Pulse 100 Oximetry Fraction of Inspired Oxygen (FIO2) 08/08/23 08/08/23 08/08/23 20:45 21:00 21:15 Temperature Pulse Rate 113 H 129 H 131 H Pulse Rate [ [employer] ] Respiratory 20 20 20 Rate Blood Pressure 107/86 106/66 112/70 Blood Pressure [Left Arm] O2 Sat by Pulse 100 100 99 Oximetry Fraction of Inspired Oxygen (FIO2) 08/08/23 08/08/23 08/08/23 21:30 21:45 22:00 Temperature Pulse Rate 122 H 123 H 165 H Pulse Rate [ [employer] ] Respiratory 20 26 H 22 Rate Blood Pressure 119/74 111/76 125/81 Blood Pressure [Left Arm] O2 Sat by Pulse 100 100 100 Oximetry Fraction of Inspired Oxygen (FIO2) 08/08/23 08/08/23 08/08/23 22:15 22:30 22:45 Temperature Pulse Rate 146 H 140 H 138 H Pulse Rate [ [employer] ] Respiratory 26 H 22 26 H Rate Blood Pressure 142/90 146/78 127/114 Blood Pressure [Left Arm] O2 Sat by Pulse 99 100 100 Oximetry Fraction of Inspired Oxygen (FIO2) 08/08/23 08/08/23 08/08/23 23:00 23:09 23:13 Temperature 98.7 F Pulse Rate 124 H 137 H Pulse Rate [ [employer] ] Respiratory 31 H Rate Blood Pressure 116/73 Blood Pressure [Left Arm] O2 Sat by Pulse 100 Oximetry Fraction of 40 Inspired Oxygen (FIO2) 08/08/23 08/08/23 08/08/23 23:15 23:26 23:30 Temperature Pulse Rate 146 H 149 H 141 H Pulse Rate [ [employer] ] Respiratory 19 20 Rate Blood Pressure 122/85 Blood Pressure [Left Arm] O2 Sat by Pulse 100 100 Oximetry Fraction of Inspired Oxygen (FIO2) 08/08/23 08/09/23 08/09/23 23:45 00:00 00:15 Temperature Pulse Rate 135 H 144 H 135 H Pulse Rate [ [employer] ] Respiratory 20 20 20 Rate Blood Pressure 112/74 98/73 114/69 Blood Pressure [Left Arm] O2 Sat by Pulse 100 100 99 Oximetry Fraction of Inspired Oxygen (FIO2) 08/09/23 08/09/23 08/09/23 00:30 00:45 01:00 Temperature Pulse Rate 146 H 146 H 161 H Pulse Rate [ [employer] ] Respiratory 20 19 21 Rate Blood Pressure 115/73 117/71 119/74 Blood Pressure [Left Arm] O2 Sat by Pulse 100 99 99 Oximetry Fraction of Inspired Oxygen (FIO2) 08/09/23 08/09/23 08/09/23 01:15 01:30 01:45 Temperature Pulse Rate 160 H 154 H 151 H Pulse Rate [ [employer] ] Respiratory 21 26 H 21 Rate Blood Pressure 103/72 103/72 111/73 Blood Pressure [Left Arm] O2 Sat by Pulse 99 99 99 Oximetry Fraction of Inspired Oxygen (FIO2) 08/09/23 08/09/23 08/09/23 02:00 02:15 02:30 Temperature Pulse Rate 141 H 126 H 124 H Pulse Rate [ [employer] ] Respiratory 28 H 16 16 Rate Blood Pressure 99/89 118/59 107/66 Blood Pressure [Left Arm] O2 Sat by Pulse 99 99 99 Oximetry Fraction of Inspired Oxygen (FIO2) 08/09/23 08/09/23 08/09/23 02:45 03:00 03:15 Temperature Pulse Rate 124 H 112 H 122 H Pulse Rate [ [employer] ] Respiratory 20 20 20 Rate Blood Pressure 108/81 102/58 103/61 Blood Pressure [Left Arm] O2 Sat by Pulse 98 98 98 Oximetry Fraction of Inspired Oxygen (FIO2) 08/09/23 08/09/23 08/09/23 03:30 03:34 03:43 Temperature Pulse Rate 123 H 121 H Pulse Rate [ [employer] ] Respiratory 20 Rate Blood Pressure 106/72 Blood Pressure [Left Arm] O2 Sat by Pulse 98 Oximetry Fraction of 40 Inspired Oxygen (FIO2) 08/09/23 08/09/23 08/09/23 03:45 04:00 04:15 Temperature Pulse Rate 120 H 128 H 133 H Pulse Rate [ [employer] ] Respiratory 20 20 20 Rate Blood Pressure 105/71 117/79 106/66 Blood Pressure [Left Arm] O2 Sat by Pulse 99 99 98 Oximetry Fraction of Inspired Oxygen (FIO2) 08/09/23 08/09/23 08/09/23 04:30 04:45 05:00 Temperature Pulse Rate 126 H 137 H 122 H Pulse Rate [ [employer] ] Respiratory 19 13 20 Rate Blood Pressure 94/72 114/70 104/85 Blood Pressure [Left Arm] O2 Sat by Pulse 98 99 99 Oximetry Fraction of Inspired Oxygen (FIO2) 08/09/23 08/09/23 08/09/23 05:15 05:30 05:45 Temperature Pulse Rate 133 H 128 H 120 H Pulse Rate [ [employer] ] Respiratory 20 20 14 Rate Blood Pressure 111/69 104/60 111/78 Blood Pressure [Left Arm] O2 Sat by Pulse 99 99 98 Oximetry Fraction of Inspired Oxygen (FIO2) 08/09/23 08/09/23 08/09/23 06:00 06:15 06:30 Temperature Pulse Rate 133 H 137 H 151 H Pulse Rate [ [employer] ] Respiratory 20 30 H 24 Rate Blood Pressure 104/69 89/63 112/87 Blood Pressure [Left Arm] O2 Sat by Pulse 98 99 99 Oximetry Fraction of Inspired Oxygen (FIO2) 08/09/23 08/09/23 08/09/23 06:45 07:00 07:15 Temperature Pulse Rate 165 H 152 H 147 H Pulse Rate [ [employer] ] Respiratory 21 21 23 Rate Blood Pressure 108/81 123/86 125/87 Blood Pressure [Left Arm] O2 Sat by Pulse 98 100 Oximetry Fraction of Inspired Oxygen (FIO2) 08/09/23 08/09/23 08/09/23 07:30 07:45 08:00 Temperature 98.8 F Pulse Rate 149 H 154 H 154 H Pulse Rate [ [employer] ] Respiratory 41 H 32 H 39 H Rate Blood Pressure 115/96 104/83 113/81 Blood Pressure [Left Arm] O2 Sat by Pulse 100 100 100 Oximetry Fraction of 35 Inspired Oxygen (FIO2) 08/09/23 08/09/23 08/09/23 08:11 08:14 08:15 Temperature Pulse Rate 152 H Pulse Rate [ [employer] ] Respiratory 24 Rate Blood Pressure 125/82 Blood Pressure [Left Arm] O2 Sat by Pulse 100 Oximetry Fraction of 35 35 Inspired Oxygen (FIO2) 08/09/23 08/09/23 08/09/23 08:25 08:30 08:38 Temperature Pulse Rate 151 H 152 H Pulse Rate [ [employer] ] Respiratory 19 Rate Blood Pressure 121/77 Blood Pressure [Left Arm] O2 Sat by Pulse 100 Oximetry Fraction of Inspired Oxygen (FIO2) 08/09/23 08/09/23 08/09/23 08:45 09:00 09:15 Temperature Pulse Rate 134 H 156 H 144 H Pulse Rate [ [employer] ] Respiratory 24 29 H 11 L Rate Blood Pressure 120/77 118/77 110/68 Blood Pressure [Left Arm] O2 Sat by Pulse 99 99 99 Oximetry Fraction of Inspired Oxygen (FIO2) 08/09/23 08/09/23 08/09/23 09:30 09:49 10:00 Temperature Pulse Rate 144 H 137 H 149 H Pulse Rate [ [employer] ] Respiratory 20 33 H 21 Rate Blood Pressure 102/65 104/69 104/69 Blood Pressure [Left Arm] O2 Sat by Pulse 98 100 100 Oximetry Fraction of Inspired Oxygen (FIO2) 08/09/23 08/09/23 08/09/23 10:15 10:30 10:45 Temperature Pulse Rate 165 H 133 H 138 H Pulse Rate [ [employer] ] Respiratory 22 16 27 H Rate Blood Pressure 121/77 116/81 108/72 Blood Pressure [Left Arm] O2 Sat by Pulse 98 100 100 Oximetry Fraction of Inspired Oxygen (FIO2) 08/09/23 08/09/23 08/09/23 11:00 12:00 12:12 Temperature 98.8 F Pulse Rate 128 H 137 H Pulse Rate [ [employer] ] Respiratory 25 H 20 Rate Blood Pressure 92/64 114/78 Blood Pressure [Left Arm] O2 Sat by Pulse 100 100 Oximetry Fraction of 35 35 35 Inspired Oxygen (FIO2) 08/09/23 08/09/2308/08/24 13:00 14:00 16:07 Temperature 99.0 F Pulse Rate 133 H Pulse Rate [ 152 H [employer] ] Respiratory 22 12 Rate Blood Pressure 121/76 109/85 Blood Pressure 100/61 [Left Arm] O2 Sat by Pulse 100 56 L 71 L Oximetry Fraction of 35 Inspired Oxygen (FIO2) - Reevaluation(s) Reevaluation #1: 08/08/23 02:50 Records reviewed Reevaluation #2: 08/08/23 02:51 Patient is requiring blood pressure medication Reevaluation #3: Patient and family informed of results, questions answered, aware of grave prognosis Reevaluation #4: Was pt. sent in by a medical professional or institution (, PA, [employer], urgent care, hospital, or alf...) When possible be specific @ -no Did you speak to anyone other than the patient for history (EMS, parent, family, police, friend...)? What history was obtained from this source @ -no Did you review nursing and triage notes (agree or disagree)? Why? @ -agree Are old charts reviewed (outside hosp., previous admission, EMS record, old EKG, old radiological studies, urgent care reports/EKG's, alf records)? Report findings @ -yes Differential Diagnosis (chest pain, altered mental status, abdominal pain women, abdominal pain men, vaginal bleeding, weakness, fever, dyspnea, syncope, headache, dizziness, GI bleed, back pain, seizure, CVA, palpatations, mental h ealth, musculoskeletal)? @ -prior EKG interpreted by me (3pts min.). @ -yes X-rays interpreted by me (1pt min.). @ -yes negative for acute disease CT interpreted by me (1pt min.). @ -Yes negative for acute disease U/S interpreted by me (1pt. min.). @ -no What testing was considered but not performed or refused? (CT, X-rays, U/S, labs)? Why? @ -none What meds were considered but not given or refused? Why? @ -none Did you discuss the management of the patient with other professionals (prof essionals i.e. , PA, [employer], lab, RT, psych nurse, rn social work, client services representative, teacher, budget officer, returned case inspector)? Give summary @ -no Was smoking cessation discussed for >3mins.? @ -no Was critical care preformed (if so, how long)? @ -yes31 Were there social determinants of health that impacted care today? How? (Homelessness, low income, unemployed, alcoholism, drug addiction, transportation, low edu. Level, literacy, decrease access to med. care, [facility], rehab)? @ -none Was there de-escalation of care discussed even if they declined (Discuss DNR or withdrawal of care, Hospice)? DNR status @ -no What co-morbidities impacted this encounter? (DM, HTN, Smoking, COPD, CAD, Cancer, CVA, ARF, Chemo, Hep., AIDS, mental health diagnosis, sleep apnea, morbid obesity)? @ -none Was patient admitted / discharged? Hospital course, mention meds given and route, prescriptions, significant lab abnormalities, going to OR and other pertinent info. @ - 88 female comes in under acute cardiac pulmonary arrest. Patient under went resuscitation here in the emergency department but ultimately , a systole with cardiac standstill on ultrasound Admitted Undiagnosed new problem with uncertain prognosis? @ -no Drug Therapy requiring intensive monitoring for toxicity (Heparin, Nitro, Insulin, Cardizem)? @ -no Were any procedures done? @ -no Diagnosis/symptom? @ -Cardiopulmonary arrest Acute, or Chronic, or Acute on Chronic? @ -Acute Uncomplicated (without systemic symptoms) or Complicated (systemic symptoms)? @ -Complicated Side effects of treatment? @ -no Exacerbation, Progression, or Severe Exacerbation? @ -exacerbation Poses a threat to life or bodily function? How? (Chest pain, [place], CO, pneumonia, PE, COPD, DKA, ARF, appy, cholecystitis, CVA, Diverticulitis, Homicidal, Suicidal, threat to staff... and all critical care pts) @ -yes with significant extremes of age and cardiac arrest Reevaluation #5: Hypoxia,Hacidosis,Hypoglycemia,Hyperkalemia,Hypotension Trauma,Toxins,Tamponade,Thrombosis,TensionPtx - Consultations Consultation #1: With many physicians who agreed to admit this patient Medical Decision Making - Medical Decision Making 88 female comes in under acute cardiac pulmonary arrest. Patient under went resuscitation here in the emergency department but ultimately , asystole with cardiac standstill on ultrasound - Lab Data Result diagrams: 08/09/23 06:56 08/09/23 06:56 Lab Results 08/08/23 08/08/23 08/08/23 Range/Units 02:01 02:01 02:01 WBC 12.7 H (3.8-10.6) k/uL RBC 4.14 (3.80-5.40) m/uL Hgb 11.8 (11.4-16.0) gm/dL Hct 39.8 (34.0-46.0) % MCV 96.0 (80.0-100.0) fL MCH 28.4 (25.0-35.0) pg MCHC 29.5 L (31.0-37.0) g/dL RDW 13.7 (11.5-15.5) % Plt Count 155 (150-450) k/uL MPV 9.3 Neutrophils % 88 % Lymphocytes % 6 % Monocytes % 4 % Eosinophils % 1 % Basophils % 0 % Neutrophils # 11.2 H (1.3-7.7) k/uL Lymphocytes # 0.7 L (1.0-4.8) k/uL Monocytes # 0.5 (0-1.0) k/uL Eosinophils # 0.1 (0-0.7) k/uL Basophils # 0.1 (0-0.2) k/uL Hypochromasia Marked PT 13.5 H (10.0-12.5) sec INR 1.3 H (<1.2) APTT 25.0 (22.0-30.0) sec D-Dimer 12.07 H (<0.60) mg/L FEU Sample Site ABG pH (7.35-7.45) ABG pCO2 (35-45) mmHg ABG pO2 (83-108) mmHg ABG HCO3 (21-25) mmol/L ABG Total CO2 (19-24) mmol/L ABG O2 Saturation (94-97) % ABG Base Excess mmol/L Cade Test FiO2 % Sodium 129 L (137-145) mmol/L Potassium 4.5 (3.5-5.1) mmol/L Chloride 94 L (98-107) mmol/L Carbon Dioxide 27 (22-30) mmol/L Anion Gap 8 mmol/L BUN 15 (7-17) mg/dL Creatinine 0.66 (0.52-1.04) mg/dL Est GFR (CKD-EPI)AfAm >90 (>60 ml/min/1.73 sqM) Est GFR (CKD-EPI)NonAf 79 (>60 ml/min/1.73 sqM) Glucose 187 H (74-99) mg/dL Lactic Ac Sepsis Rflx Plasma Lactic Acid Jaime (0.7-2.0) mmol/L Calcium 8.0 L (8.4-10.2) mg/dL Phosphorus 4.8 H (2.5-4.5) mg/dL Magnesium 2.2 (1.6-2.3) mg/dL Total Bilirubin 0.7 (0.2-1.3) mg/dL AST 175 H (14-36) U/L ALT 109 H (4-34) U/L Alkaline Phosphatase 73 (38-126) U/L Troponin I (0.000-0.034) ng/mL NT-Pro-B Natriuret Pep 4350 pg/mL Total Protein 5.0 L (6.3-8.2) g/dL Albumin 2.8 L (3.5-5.0) g/dL TSH 12.400 H (0.465-4.680) mIU/L Urine Color Urine Appearance (Clear) Urine pH (5.0-8.0) Ur Specific [place] (1.001-1.035) Urine Protein (Negative) Urine Glucose (UA) (Negative) Urine Ketones (Negative) Urine Blood (Negative) Urine Nitrite (Negative) Urine Bilirubin (Negative) Urine Urobilinogen (<2.0) mg/dL Ur Leukocyte Esterase (Negative) 08/08/23 08/08/23 08/08/23 Range/Units 02:01 02:01 02:19 WBC (3.8-10.6) k/uL RBC (3.80-5.40) m/uL Hgb (11.4-16.0) gm/dL Hct (34.0-46.0) % MCV (80.0-100.0) fL MCH (25.0-35.0) pg MCHC (31.0-37.0) g/dL RDW (11.5-15.5) % Plt Count (150-450) k/uL MPV Neutrophils % % Lymphocytes % % Monocytes % % Eosinophils % % Basophils % % Neutrophils # (1.3-7.7) k/uL Lymphocytes # (1.0-4.8) k/uL Monocytes # (0-1.0) k/uL Eosinophils # (0-0.7) k/uL Basophils # (0-0.2) k/uL Hypochromasia PT (10.0-12.5) sec INR (<1.2) APTT (22.0-30.0) sec D-Dimer (<0.60) mg/L FEU Sample Site ABG pH (7.35-7.45) ABG pCO2 (35-45) mmHg ABG pO2 (83-108) mmHg ABG HCO3 (21-25) mmol/L ABG Total CO2 (19-24) mmol/L ABG O2 Saturation (94-97) % ABG Base Excess mmol/L Cade Test FiO2 % Sodium (137-145) mmol/L Potassium (3.5-5.1) mmol/L Chloride (98-107) mmol/L Carbon Dioxide (22-30) mmol/L Anion Gap mmol/L BUN (7-17) mg/dL Creatinine (0.52-1.04) mg/dL Est GFR (CKD-EPI)AfAm (>60 ml/min/1.73 sqM) Est GFR (CKD-EPI)NonAf (>60 ml/min/1.73 sqM) Glucose (74-99) mg/dL Lactic Ac Sepsis Rflx Plasma Lactic Acid Jaime 5.3 H* (0.7-2.0) mmol/L Calcium (8.4-10.2) mg/dL Phosphorus (2.5-4.5) mg/dL Magnesium (1.6-2.3) mg/dL Total Bilirubin (0.2-1.3) mg/dL AST (14-36) U/L ALT (4-34) U/L Alkaline Phosphatase (38-126) U/L Troponin I 0.041 H* (0.000-0.034) ng/mL NT-Pro-B Natriuret Pep pg/mL Total Protein (6.3-8.2) g/dL Albumin (3.5-5.0) g/dL TSH (0.465-4.680) mIU/L Urine Color Yellow Urine Appearance Clear (Clear) Urine pH 6.5 (5.0-8.0) Ur Specific [place] 1.013 (1.001-1.035) Urine Protein Negative (Negative) Urine Glucose (UA) Negative (Negative) Urine Ketones Negative (Negative) Urine Blood Negative (Negative) Urine Nitrite Negative (Negative) Urine Bilirubin Negative (Negative) Urine Urobilinogen <2.0 (<2.0) mg/dL Ur Leukocyte Esterase Negative (Negative) 08/08/23 08/08/23 Range/Units 02:59 03:34 WBC (3.8-10.6) k/uL RBC (3.80-5.40) m/uL Hgb (11.4-16.0) gm/dL Hct (34.0-46.0) % MCV (80.0-100.0) fL MCH (25.0-35.0) pg MCHC (31.0-37.0) g/dL RDW (11.5-15.5) % Plt Count (150-450) k/uL MPV Neutrophils % % Lymphocytes % % Monocytes % % Eosinophils % % Basophils % % Neutrophils # (1.3-7.7) k/uL Lymphocytes # (1.0-4.8) k/uL Monocytes # (0-1.0) k/uL Eosinophils # (0-0.7) k/uL Basophils # (0-0.2) k/uL Hypochromasia PT (10.0-12.5) sec INR (<1.2) APTT (22.0-30.0) sec D-Dimer (<0.60) mg/L FEU Sample Site rrad ABG pH 7.32 L (7.35-7.45) ABG pCO2 64 H (35-45) mmHg ABG pO2 >400 H (83-108) mmHg ABG HCO3 33 H (21-25) mmol/L ABG Total CO2 35 H (19-24) mmol/L ABG O2 Saturation 99.8 H (94-97) % ABG Base Excess 6.9 mmol/L Cade Test Yes FiO2 100 % Sodium (137-145) mmol/L Potassium (3.5-5.1) mmol/L Chloride (98-107) mmol/L Carbon Dioxide (22-30) mmol/L Anion Gap mmol/L BUN (7-17) mg/dL Creatinine (0.52-1.04) mg/dL Est GFR (CKD-EPI)AfAm (>60 ml/min/1.73 sqM) Est GFR (CKD-EPI)NonAf (>60 ml/min/1.73 sqM) Glucose (74-99) mg/dL Lactic Ac Sepsis Rflx Y Plasma Lactic Acid Jaime (0.7-2.0) mmol/L Calcium (8.4-10.2) mg/dL Phosphorus (2.5-4.5) mg/dL Magnesium (1.6-2.3) mg/dL Total Bilirubin (0.2-1.3) mg/dL AST (14-36) U/L ALT (4-34) U/L Alkaline Phosphatase (38-126) U/L Troponin I (0.000-0.034) ng/mL NT-Pro-B Natriuret Pep pg/mL Total Protein (6.3-8.2) g/dL Albumin (3.5-5.0) g/dL TSH (0.465-4.680) mIU/L Urine Color Urine Appearance (Clear) Urine pH (5.0-8.0) Ur Specific [place] (1.001-1.035) Urine Protein (Negative) Urine Glucose (UA) (Negative) Urine Ketones (Negative) Urine Blood (Negative) Urine Nitrite (Negative) Urine Bilirubin (Negative) Urine Urobilinogen (<2.0) mg/dL Ur Leukocyte Esterase (Negative) - EKG Data -: EKG Interpreted by Me (EKG is A-fib 136 QRS 124 QTc 427) Critical Care Time Critical Care Time: Yes Total Critical Care Time: 31 Disposition Clinical Impression: Acute respiratory failure, Cardiac arrest Disposition: ADMITTED IP TO THIS HOSP Condition: Poor Is patient prescribed a controlled substance at d/c from ED?: No Time of Disposition: 03:50
[2023-08-08] MEDS: SODIUM CHLORIDE 0.9% 1,000 ML IV STA ×2 (02:00→03:02)
[2023-08-08] MEDS: NOREPINEPHRINE 4 MG in SODIUM CHLORIDE 0.9% 250 ML IV ONE (02:13)
[2023-08-08] MEDS: MORPHINE SULFATE 4 MG/ML SYRINGE IV STA (02:16)
[2023-08-08 03:00] LABS: Appearance,Urine Clear (Clear); Bilirubin,Urine Negative (Negative); Blood,Urine Negative (Negative); Color,Urine Yellow; Glucose,Urine (UA) Negative (Negative); Ketones,Urine Negative (Negative); Leukocyte Esterase,Urine Negative (Negative); Nitrite,Urine Negative (Negative); PH, Urine 6.5 (5.0-8.0); Protein,Urine Negative (Negative); Specific Gravity,Urine 1.013 (1.001-1.035); Urobilinogen,Urine <2.0 mg/dL (<2.0)
[2023-08-08 03:00] LABS: ABG Base Excess 6.9 mmol/L; ABG HCO3 33 mmol/L (21-25); ABG Oxygen Saturation 99.8 % (94-97); ABG PCO2 64 mmHg (35-45); ABG PH 7.32 (7.35-7.45); ABG PO2 >400 mmHg (83-108); ABG TCO2 35 mmol/L (19-24); Allen Test Performed? Yes
[2023-08-08 03:02] LABS: Basophils # (A) 0.1 k/uL (0-0.2); Basophils % (A) 0 %; Eosinophils # (A) 0.1 k/uL (0-0.7); Eosinophils % (A) 1 %; HCT 39.8 % (34.0-46.0); HGB 11.8 gm/dL (11.4-16.0); Hypochromasia Marked; Lymphocytes # (A) 0.7 k/uL (1.0-4.8); Lymphocytes % (A) 6 %; MCH 28.4 pg (25.0-35.0); MCHC 29.5 g/dL (31.0-37.0); Mean Platelet Volume 9.3; Monocytes # (A) 0.5 k/uL (0-1.0); Monocytes % (A) 4 %; Neutrophils # (A) 11.2 k/uL (1.3-7.7); Neutrophils % (A) 88 %; Platelet Count 155 k/uL (150-450); RBC 4.14 m/uL (3.80-5.40); RDW 13.7 % (11.5-15.5); WBC 12.7 k/uL (3.8-10.6)
[2023-08-08 03:14] LABS: ALT 109 U/L (4-34); African American GFR (CKD) >90 (>60 ml/min/1.73 sqM); Anion Gap 8 mmol/L; Blood Urea Nitrogen 15 mg/dL (7-17); Carbon Dioxide 27 mmol/L (22-30); Chloride 94 mmol/L (98-107); Glucose 187 mg/dL (74-99); Non-African American GFR(CKD) 79 (>60 ml/min/1.73 sqM); Phosphorus 4.8 mg/dL (2.5-4.5); Sodium 129 mmol/L (137-145); Total Bilirubin 0.7 mg/dL (0.2-1.3)
[2023-08-08 03:20] LABS: AST 175 U/L (14-36); Albumin 2.8 g/dL (3.5-5.0); Alkaline Phosphatase 73 U/L (38-126); Magnesium 2.2 mg/dL (1.6-2.3); Potassium 4.5 mmol/L (3.5-5.1)
[2023-08-08 03:22] LABS: NT-Pro-B-Type Natriuretic Pept 4350 pg/mL
[2023-08-08 03:25] LABS: INR 1.3 (<1.2); Prothrombin Time 13.5 sec (10.0-12.5)
[2023-08-08] MEDS ORDERED: IPRATROPIUM-ALBUTEROL 3 ML NEB INHALATION PRN (03:49)
[2023-08-08] MEDS ORDERED: NALOXONE 0.4 MG/ML 1 ML VIAL IV PRN (03:49)
--- NOTE | 2023-08-08 04:01 | CT ---
EXAM: CT Head Without Intravenous Contrast CLINICAL HISTORY: ITS.REASON CT Reason: intubation TECHNIQUE: Axial computed tomography images of the head/brain without intravenous contrast. CTDI is 49.2 mGy and DLP is 1095.4 mGy-cm. This CT exam was performed using one or more of the following dose reduction techniques: automated exposure control, adjustment of the mA and/or kV according to patient size, and/or use of iterative reconstruction technique. COMPARISON: No relevant prior studies available. FINDINGS: Brain: No hemorrhage, herniation, or mass effect. Chronic microvascular ischemic changes. Ventricles: No hydrocephalus. Age related cerebral volume loss. Bones/joints: Unremarkable. Soft tissues: Unremarkable. Sinuses: No air fluid levels. Mastoid air cells: Clear. IMPRESSION: No acute hemorrhage, hydrocephalus, or mass effect.
--- NOTE | 2023-08-08 05:21 | XR ---
EXAM: XR Chest, 1 View CLINICAL HISTORY: ITS.REASON XR Reason: intubation TECHNIQUE: Frontal view of the chest. COMPARISON: 07/15/23 FINDINGS: Lungs: Moderate amount of airspace opacities in both lungs, more on the right, suggest pneumonia. Subcentimeter granulomatous calcifications of right middle and lower lobes. Pleural space: Bilateral pleural effusions, larger on the left. Mediastinum: Cardiomegaly. Bones/joints: Osteopenia. Moderate degenerative changes Vasculature: Calcified aorta. Lymph nodes: Suspect calcified right hilar lymph nodes. Tubes, lines and devices: Tip of endotracheal tube is about 5 cm above the hbavani. Sidehole of the enteric tube is in the body of the stomach. IMPRESSION: 1. Supporting tubes are in place. 2. Bilateral pleural effusions, larger on the left. 3. Moderate amount of airspace opacities in both lungs, more on the right, suggest pneumonia.
[2023-08-08] MEDS ORDERED: AZITHROMYCIN 500 MG in SODIUM CHLORIDE 0.9% 250 ML IVPB STA (05:50)
[2023-08-08] MEDS: DEXTROSE 5% IN WATER 100 ML with AMIODARONE 150 MG IV ONE (08:39)
[2023-08-08] MEDS: AMIODARONE 360 MG in DEXTROSE 5% IN WATER 200 ML IV ONE (08:45)
[2023-08-08] MEDS: AZITHROMYCIN 500 MG in SODIUM CHLORIDE 0.9% 250 ML IVPB STA (08:50)
[2023-08-08] MEDS: IPRATROPIUM-ALBUTEROL 3 ML NEB INHALATION SCH (11:35)
[2023-08-08] MEDS: methylPREDNISolone SOD SUCCI 125 MG/2 ML VIAL IV SCH (11:47)
[2023-08-08] MEDS: LORazepam 2 MG/ML INJ IV ONE (12:06)
[2023-08-08] MEDS: levETIRAcetam IV 500 MG/5 ML VIAL IVP STA (12:28)
--- NOTE | 2023-08-08 13:02 | P.CRDCN ---
History of Present Illness Consult date: 08/08/23 Chief complaint: Reason for the consult cardiac arrest History of present illness: This is an 88-year-old female patient who we are asked to see as a consultation in the emergency room for further evaluation of cardiac arrest. Currently the patient is intubated and she is on mechanical ventilation and the history was taken from the chart. The patient found unresponsive at home for unknown duration. Subsequently EMS was called and the patient had CPR for at least 30 minutes according to the nurse and the chart. We do not know the underlying rhythm when she was found unresponsive at home. The patient subsequently intubated and she was brought to the emergency department. The patient is known to have history of chronic obstructive pulmonary disease/chronic hypoxic respiratory failure as well as atrial fibrillation and hypertension and dyslipidemia. During this admission she underwent a workup including an EKG and that showed atrial fibrillation with rapid ventricular response with right bundle branch block morphology. First set of troponin came in to be abnormal. D-dimer came in to be abnormal. Chest x-ray showed finding consistent with heart failure as well as bilateral pleural effusion. When she presented initially she was hypotensive requiring norepinephrine but currently the patient is not hypotensive anymore and norepinephrine is on hold. She was started on amiodarone IV to control the atrial fibrillation. Beside that she underwent blood work including hemoglobin came in to be unremarkable and electrolytes and kidney function appear to be also unremarkable. Beside that she underwent a CT scan of the brain and that came in to be unremarkable for any acute bleeding. Neurology service is on the case as well as intensive care service. The examination is remarkable for overall stable vital signs besides tachycardia with heart rate around 110 bpm with diminished breathing sounds bilaterally and she has irregular rhythm with a distant heart sounds and systolic murmur. Assessment Cardiac arrest of unknown etiology at this point Acute hypoxic respiratory failure Known chronic obstructive pulmonary disease Evidence of myocardial injury Abnormal D-dimer Atrial fibrillation Multiple comorbid conditions Plan I would suggest starting the patient on heparin IV if it is okay from the neurology standpoint of view Consider obtaining a CTA of the chest to rule out pulmonary embolism which is highly possible giving the clinical scenario and the abnormal D-dimer Follow-up on the echocardiogram which was ordered earlier Obtain serial cardiac enzymes Continue amiodarone IV Follow-up with the patient Past Medical History Past Medical History: COPD, Hyperlipidemia, Hypertension History of Any Multi-Drug Resistant Organisms: None Reported Past Surgical History: Tonsillectomy Past Anesthesia/Blood Transfusion Reactions: No Reported Reaction Past Psychological History: No Psychological Hx Reported Smoking Status: Former smoker Past Alcohol Use History: Occasional Past Drug Use History: None Reported Medications and Allergies Home Medications Medication Instructions Recorded Confirmed Type Alendronate Sodium [Fosamax] 70 mg PO TU 04/17/23 08/08/23 History Ferrous Sulfate [Iron (65 MG 325 mg PO MOWEFR 04/17/23 08/08/23 History Elemental)] Fluticasone/Umeclidin/Vilanter 1 puff INHALATION RT-DAILY 04/17/23 08/08/23 History [Trelegy Ellipta 100-62.5-25] Losartan Potassium 100 mg PO W/SUPPER 04/17/23 08/08/23 History Multivitamin [Multivitamins Adult 2 tab PO DAILY 04/17/23 08/08/23 History Gummies] Apixaban [Eliquis] 5 mg PO BID 08/08/23 08/08/23 History Cholecalciferol [Vitamin D3 (25 25 mcg PO SUTUTHSA 08/08/23 08/08/23 History Mcg = 1000 Iu)] Famotidine 20 mg PO HS 08/08/23 08/08/23 History Furosemide [Lasix] 20 mg PO DAILY 08/08/23 08/08/23 History Ipratropium-Albuterol Nebulize 3 ml INHALATION RT-TID 08/08/23 08/08/23 History [Duoneb 0.5 mg-3 mg/3 ml Soln] Magnesium Oxide [Mag-Ox] 400 mg PO DAILY 08/08/23 08/08/23 History Metoprolol Tartrate [Lopressor] 25 mg PO HS 08/08/23 08/08/23 History Metoprolol Tartrate [Lopressor] 50 mg PO DAILY 08/08/23 08/08/23 History Omeprazole [PriLOSEC] 40 mg PO AC-BID 08/08/23 08/08/23 History traZODone HCL [Desyrel] See Taper PO HS 08/08/23 08/08/23 History Allergies Allergy/AdvReac Type Severity Reaction Status Date / Time Penicillins Allergy Rash/Hives Verified 08/08/23 07:58 Physical Exam Vitals: Vital Signs Temp Pulse Resp BP Pulse Ox FiO2 08/08/23 12:30 112 H 12 112/66 99 04/19/24 12:15 117 H 16 104/84 99 08/08/23 12:00 98.6 F 111 H 16 107/68 100 08/08/23 11:46 124 H 20 103/68 100 08/08/23 11:35 99 08/08/23 11:30 113 H 18 117/68 100 08/08/23 11:27 40 08/08/23 11:15 112 H 20 113/88 100 08/08/23 11:00 96 22 100/73 100 08/08/23 10:45 95 200 H 126/96 100 08/08/23 10:30 110 H 24 160/127 100 08/08/23 10:15 110 H 22 151/130 100 08/08/23 10:00 98.2 F 110 H 20 93/62 100 08/08/23 09:45 101 H 16 107/87 100 08/08/23 09:30 92 20 102/81 100 08/08/23 09:15 109 H 14 104/89 100 08/08/23 09:04 98.0 F 106 H 21 152/102 100 08/08/23 08:45 121 H 19 156/105 100 08/08/23 08:30 124 H 22 135/83 100 08/08/23 08:15 118 H 20 144/104 100 08/08/23 08:11 45 08/08/23 08:00 138 H 21 144/91 100 08/08/23 07:58 50 08/08/23 07:55 98.5 F 116 H 16 142/94 100 08/08/23 06:00 128 H 24 119/92 100 08/08/23 05:00 122 H 24 134/111 100 08/08/23 04:40 123 H 24 160/117 100 08/08/23 04:00 108 H 24 119/74 100 08/08/23 03:05 50 08/08/23 03:02 24 08/08/23 02:45 112 H 20 111/97 100 08/08/23 02:25 113 H 20 110/55 100 08/08/23 02:20 114 H 20 90/69 100 08/08/23 02:17 115 H 20 88/60 100 08/08/23 02:10 115 H 20 59/23 100 08/08/23 02:02 100 08/08/23 02:00 113 H 20 70/59 100 08/08/23 01:58 151 H 20 85/59 100 100 08/08/23 01:54 20 08/08/23 01:46 138 H 20 138/123 98 Intake and Output 08/07/23 08/08/23 08/08/23 22:59 06:59 14:59 Intake Total 27.485 Output Total 90 Balance 27.485 -90 Intake: Intake, IV Titration 27.485 Amount Norepinephrine 4 mg In 27.485 Sodium Chloride 0.9% 250 ml @ 0.03 MCG/KG/MIN 6.74 mls/hr IV .Q24H ONE Rx#: [id number] Output: Urine 90 Uretheral (Ramos) 90 Other: Weight 58.967 kg Results 08/08/23 02:01 08/08/23 02:01 Cardiac Enzymes 08/08/23 08/08/23 Range/Units 02:01 02:01 AST 175 H (14-36) U/L Troponin I 0.041 H* (0.000-0.034) ng/mL Coagulation 08/08/23 Range/Units 02:01 PT 13.5 H (10.0-12.5) sec APTT 25.0 (22.0-30.0) sec CBC 08/08/23 Range/Units 02:01 WBC 12.7 H (3.8-10.6) k/uL RBC 4.14 (3.80-5.40) m/uL Hgb 11.8 (11.4-16.0) gm/dL Hct 39.8 (34.0-46.0) % Plt Count 155 (150-450) k/uL Comprehensive Metabolic Panel 08/08/23 Range/Units 02:01 Sodium 129 L (137-145) mmol/L Potassium 4.5 (3.5-5.1) mmol/L Chloride 94 L (98-107) mmol/L Carbon Dioxide 27 (22-30) mmol/L BUN 15 (7-17) mg/dL Creatinine 0.66 (0.52-1.04) mg/dL Glucose 187 H (74-99) mg/dL Calcium 8.0 L (8.4-10.2) mg/dL AST 175 H (14-36) U/L ALT 109 H (4-34) U/L Alkaline Phosphatase 73 (38-126) U/L Total Protein 5.0 L (6.3-8.2) g/dL Albumin 2.8 L (3.5-5.0) g/dL Current Medications Generic Name Dose Route Start Last Admin Trade Name Freq PRN Reason Stop Dose Admin Albuterol/Ipratropium 3 ml 08/08/23 12:00 08/08/23 11:35 Ipratropium-Albuterol 3 Ml Neb INHALATION 3 ml RT-Q4H JENISE Administration Budesonide 1 mg 08/08/23 20:00 Budesonide 1 Mg/2 Ml Nebu INHALATION RT-BID JENISE Formoterol Fumarate 20 mcg 08/08/23 20:00 Formoterol Fumarate 20 Mcg/2 Ml Nebu INHALATION RT-BID JENISE Sodium Chloride 1,000 mls @ 75 mls/hr 08/08/23 01:57 08/08/23 03:02 Saline 0.9% IV 08/08/23 15:16 75 mls/hr .[id number] STA Administration Norepinephrine Bitartrate 4 mg 254 mls @ 6.74 mls/hr 08/08/23 02:11 08/08/23 05:30 / Sodium Chloride IV 08/09/23 02:10 0 mcg/kg/min .Q24H ONE 0 mls/hr Titration Protocol 0.03 MCG/KG/MIN Amiodarone HCl 360 mg/ 200 mls @ 33.333 mls/hr 08/08/23 08:30 08/08/23 08:45 Dextrose/Water IV 08/08/23 14:29 1 mg/min .Q6H ONE 33.333 mls/hr Administration Protocol 1 MG/MIN Amiodarone HCl 450 mg/ 250 mls @ 16.667 mls/hr 08/08/23 14:30 Dextrose/Water IV 08/09/23 08:29 .Q15H JENISE Protocol 0.5 MG/MIN Propofol 1,000 mg/ IV Solution 100 mls @ 5.307 mls/hr 08/08/23 10:15 08/08/23 10:27 IV 15 mcg/kg/min .[id number] JENISE 5.307 mls/hr Administration Protocol 15 MCG/KG/MIN Methylprednisolone Sodium Succinate 60 mg 08/08/23 12:00 08/08/23 11:47 Methylprednisolone Sod Succi 125 Mg/2 Ml Vial IV 60 mg Q6HR JENISE Administration Morphine Sulfate 4 mg 08/08/23 03:49 Morphine Sulfate 4 Mg/Ml Syringe IV Q3HR PRN Severe Pain (Scale 7 to 10) Naloxone HCl 0.2 mg 08/08/23 03:49 Naloxone 0.4 Mg/Ml 1 Ml Vial IV Q2M PRN Opioid Reversal Intake and Output 08/07/23 08/08/23 08/08/23 22:59 06:59 14:59 Intake Total 27.485 Output Total 90 Balance 27.485 -90 Intake: Intake, IV Titration 27.485 Amount Norepinephrine 4 mg In 27.485 Sodium Chloride 0.9% 250 ml @ 0.03 MCG/KG/MIN 6.74 mls/hr IV .Q24H ONE Rx#: [id number] Output: Urine 90 Uretheral (Ramos) 90 Other: Weight 58.967 kg 08/08/23 02:01 08/08/23 02:01
[2023-08-08] MEDS ORDERED: HEPARIN SODIUM 1,000 UN/ML (10ML VL) IV PRN (13:53)
[2023-08-08] MEDS: AMIODARONE 450 MG in DEXTROSE 5% IN WATER 250 ML IV SCH (14:01)
[2023-08-08] MEDS: HEPARIN SOD,PORK IN 0.45% NACL 25,000 UNIT in 0.45% NACL 1 250ML.BAG IV SCH (14:05)
--- NOTE | 2023-08-08 14:35 | P.HPIM ---
History of Present Illness H&P Date: 08/08/23 History of present illness; patient is a 88-year-old lady with past medical history significant for COPD, atrial fibrillation, hypertension, dyslipidemia who presented to to the ER for cardiac arrest. Most of the history has been taken from the electronic medical records. Patient was found unresponsive by family at home. EMS was immediately called, according to chart downtime is somewhere between 20 to 30 minutes. EMS arrived [place], CPR was initiated and ROSC was achieved. Patient was intubated and brought to the ER.Initial lab work done in the ER showed WBC 12.7, hemoglobin 11.8, D-dimer 12.07, sodium 1.9, potassium 4.5, BUN 15, creatinine 0.66, lactate 5.3, phosphorus 4.8, AST 178, ALT 109, troponin 0.041, TSH 12.[address] for infection CT brain done showed no acute hemorrhage, hydrocephalus or mass effect Chest x-ray done in the ERBilateral pleural effusions, larger on the left, moderate amount of airspace opacities in both lungs more on the right suggest pneumonia Patient admitted to ICU under medicine service REVIEW OF SYSTEMS: Review of system cannot be obtained as patient currently intubated and sedated PHYSICAL EXAMINATION: GENERAL: The patient is intubated HEENT: Pupils are round and equally reacting to light. CARDIOVASCULAR: S1 and S2 present. No murmurs, rubs, or gallops. PULMONARY: Coarse breath sound bilaterally, no wheeze ABDOMEN: Soft, nontender, nondistended, normoactive bowel sounds. No palpable organomegaly. MUSCULOSKELETAL: No joint swelling or deformity. EXTREMITIES: No cyanosis, clubbing, or pedal edema. NEUROLOGICAL: Intubated, occasional jerking movement of lower extremities noticeable SKIN: No rashes. Assessment and plan Acute hypoxic respiratory failure Cardiac arrest A-fib with RVR Hyponatremia Elevated troponin Lactic acidosis elevated D-dimer Acute transaminitis Monitor vital signs Monitor CBC Monitor CMP Continue telemetry monitoring Continue vent management per ICU Aggressive bronchopulmonary hygiene Serial troponin 2D echo ordered Continue amiodarone Continue propofol Start pharmacy to dose heparin Cardiology consulted Pulmonology/ICU consulted Neurology consulted Prognosis is guarded Labs and medication were reviewed.. Continue same treatment. Continue with symptomatic treatment. Resume home medication. Monitor labs and vitals. DVT and GI prophylaxis. Further recommendations as per clinical course of the patient Dictation was produced using [employer]aoj[employer] software. please excuse any grammatical, word or spelling errors. Past Medical History Past Medical History: COPD, Hyperlipidemia, Hypertension History of Any Multi-Drug Resistant Organisms: None Reported Past Surgical History: Tonsillectomy Past Anesthesia/Blood Transfusion Reactions: No Reported Reaction Past Psychological History: No Psychological Hx Reported Smoking Status: Former smoker Past Alcohol Use History: Occasional Past Drug Use History: None Reported Medications and Allergies Home Medications Medication Instructions Recorded Confirmed Type Alendronate Sodium [Fosamax] 70 mg PO TU 04/17/23 08/08/23 History Ferrous Sulfate [Iron (65 MG 325 mg PO MOWEFR 04/17/23 08/08/23 History Elemental)] Fluticasone/Umeclidin/Vilanter 1 puff INHALATION RT-DAILY 04/17/23 08/08/23 History [Trelegy Ellipta 100-62.5-25] Losartan Potassium 100 mg PO W/SUPPER 04/17/23 08/08/23 History Multivitamin [Multivitamins Adult 2 tab PO DAILY 04/17/23 08/08/23 History Gummies] Apixaban [Eliquis] 5 mg PO BID 08/08/23 08/08/23 History Cholecalciferol [Vitamin D3 (25 25 mcg PO SUTUTHSA 08/08/23 08/08/23 History Mcg = 1000 Iu)] Famotidine 20 mg PO HS 08/08/23 08/08/23 History Furosemide [Lasix] 20 mg PO DAILY 08/08/23 08/08/23 History Ipratropium-Albuterol Nebulize 3 ml INHALATION RT-TID 08/08/23 08/08/23 History [Duoneb 0.5 mg-3 mg/3 ml Soln] Magnesium Oxide [Mag-Ox] 400 mg PO DAILY 08/08/23 08/08/23 History Metoprolol Tartrate [Lopressor] 25 mg PO HS 08/08/23 08/08/23 History Metoprolol Tartrate [Lopressor] 50 mg PO DAILY 08/08/23 08/08/23 History Omeprazole [PriLOSEC] 40 mg PO AC-BID 08/08/23 08/08/23 History traZODone HCL [Desyrel] See Taper PO HS 08/08/23 08/08/23 History Allergies Allergy/AdvReac Type Severity Reaction Status Date / Time Penicillins Allergy Rash/Hives Verified 08/08/23 07:58 Physical Exam Vitals: Vital Signs Temp Pulse Resp BP Pulse Ox FiO2 08/08/23 14:00 98.1 F 120 H 12 84/63 100 08/08/23 13:45 107 H 12 94/50 100 08/08/23 13:30 116 H 12 100/66 100 08/08/23 13:15 122 H 14 102/50 100 08/08/23 13:02 98.0 F 116 H 14 121/70 100 08/08/23 12:30 112 H 12 112/66 99 08/08/23 12:15 117 H 16 104/84 99 08/08/23 12:00 98.6 F 111 H 16 107/68 100 08/08/23 11:46 124 H 20 103/68 100 08/08/23 11:35 99 08/08/23 11:30 113 H 18 117/68 100 08/08/23 11:27 40 08/08/23 11:15 112 H 20 113/88 100 08/08/23 11:00 96 22 100/73 100 08/08/23 10:45 95 200 H 126/96 100 08/08/23 10:30 110 H 24 160/127 100 08/08/23 10:15 110 H 22 151/130 100 08/08/23 10:00 98.2 F 110 H 20 93/62 100 08/08/23 09:45 101 H 16 107/87 100 08/08/23 09:30 92 20 102/81 100 08/08/23 09:15 109 H 14 104/89 100 08/08/23 09:04 98.0 F 106 H 21 152/102 100 08/08/23 08:45 121 H 19 156/105 100 08/08/23 08:30 124 H 22 135/83 100 08/08/23 08:15 118 H 20 144/104 100 08/08/23 08:11 45 08/08/23 08:00 138 H 21 144/91 100 08/08/23 07:58 50 08/08/23 07:55 98.5 F 116 H 16 142/94 100 08/08/23 06:00 128 H 24 119/92 100 08/08/23 05:00 122 H 24 134/111 100 08/08/23 04:40 123 H 24 160/117 100 08/08/23 04:00 108 H 24 119/74 100 08/08/23 03:05 50 08/08/23 03:02 24 08/08/23 02:45 112 H 20 111/97 100 08/08/23 02:25 113 H 20 110/55 100 08/08/23 02:20 114 H 20 90/69 100 08/08/23 02:17 115 H 20 88/60 100 08/08/23 02:10 115 H 20 59/23 100 08/08/23 02:02 100 08/08/23 02:00 113 H 20 70/59 100 08/08/23 01:58 151 H 20 85/59 100 100 08/08/23 01:54 20 08/08/23 01:46 138 H 20 138/123 98 Intake and Output 08/07/23 08/08/23 08/08/23 22:59 06:59 14:59 Intake Total 27.485 Output Total 90 Balance 27.485 -90 Intake: Intake, IV Titration 27.485 Amount Norepinephrine 4 mg In 27.485 Sodium Chloride 0.9% 250 ml @ 0.03 MCG/KG/MIN 6.74 mls/hr IV .Q24H ONE Rx#: [id number] Output: Urine 90 Uretheral (Ramos) 90 Other: Weight 58.967 kg Results CBC & Chem 7: 08/08/23 02:01 08/08/23 02:01 Labs: Abnormal Lab Results - Last 24 Hours (Table) 08/08/23 08/08/23 08/08/23 Range/Units 02:01 02:01 02:01 WBC 12.7 H (3.8-10.6) k/uL MCHC 29.5 L (31.0-37.0) g/dL Neutrophils # 11.2 H (1.3-7.7) k/uL Lymphocytes # 0.7 L (1.0-4.8) k/uL PT 13.5 H (10.0-12.5) sec INR 1.3 H (<1.2) D-Dimer 12.07 H (<0.60) mg/L FEU ABG pH (7.35-7.45) ABG pCO2 (35-45) mmHg ABG pO2 (83-108) mmHg ABG HCO3 (21-25) mmol/L ABG Total CO2 (19-24) mmol/L ABG O2 Saturation (94-97) % Sodium 129 L (137-145) mmol/L Chloride 94 L (98-107) mmol/L Glucose 187 H (74-99) mg/dL Plasma Lactic Acid Jaime (0.7-2.0) mmol/L Calcium 8.0 L (8.4-10.2) mg/dL Phosphorus 4.8 H (2.5-4.5) mg/dL AST 175 H (14-36) U/L ALT 109 H (4-34) U/L Troponin I (0.000-0.034) ng/mL Total Protein 5.0 L (6.3-8.2) g/dL Albumin 2.8 L (3.5-5.0) g/dL TSH 12.400 H (0.465-4.680) mIU/L 08/08/23 08/08/23 08/08/23 Range/Units 02:01 02:01 02:59 WBC (3.8-10.6) k/uL MCHC (31.0-37.0) g/dL Neutrophils # (1.3-7.7) k/uL Lymphocytes # (1.0-4.8) k/uL PT (10.0-12.5) sec INR (<1.2) D-Dimer (<0.60) mg/L FEU ABG pH 7.32 L (7.35-7.45) ABG pCO2 64 H (35-45) mmHg ABG pO2 >400 H (83-108) mmHg ABG HCO3 33 H (21-25) mmol/L ABG Total CO2 35 H (19-24) mmol/L ABG O2 Saturation 99.8 H (94-97) % Sodium (137-145) mmol/L Chloride (98-107) mmol/L Glucose (74-99) mg/dL Plasma Lactic Acid Jaime 5.3 H* (0.7-2.0) mmol/L Calcium (8.4-10.2) mg/dL Phosphorus (2.5-4.5) mg/dL AST (14-36) U/L ALT (4-34) U/L Troponin I 0.041 H* (0.000-0.034) ng/mL Total Protein (6.3-8.2) g/dL Albumin (3.5-5.0) g/dL TSH (0.465-4.680) mIU/L 08/08/23 08/08/23 08/08/23 Range/Units 07:10 10:57 13:19 WBC (3.8-10.6) k/uL MCHC (31.0-37.0) g/dL Neutrophils # (1.3-7.7) k/uL Lymphocytes # (1.0-4.8) k/uL PT (10.0-12.5) sec INR (<1.2) D-Dimer (<0.60) mg/L FEU ABG pH (7.35-7.45) ABG pCO2 (35-45) mmHg ABG pO2 (83-108) mmHg ABG HCO3 (21-25) mmol/L ABG Total CO2 (19-24) mmol/L ABG O2 Saturation (94-97) % Sodium (137-145) mmol/L Chloride (98-107) mmol/L Glucose (74-99) mg/dL Plasma Lactic Acid Jaime 3.9 H* 3.9 H* (0.7-2.0) mmol/L Calcium (8.4-10.2) mg/dL Phosphorus (2.5-4.5) mg/dL AST (14-36) U/L ALT (4-34) U/L Troponin I 0.474 H* (0.000-0.034) ng/mL Total Protein (6.3-8.2) g/dL Albumin (3.5-5.0) g/dL TSH (0.465-4.680) mIU/L
--- NOTE | 2023-08-08 15:23 | P.CNPUL ---
History of Present Illness Consult date: 08/08/23 Requesting physician: Mark Kingsley Reason for consult: other (Cardiopulmonary arrest) Chief complaint: Cardiac arrest History of present illness: This is an 88-year-old female, known history of COPD, hypertension, dyslipidemia, patient apparently had a witnessed cardiac arrest at home, EMS responded to the scene, patient was intubated in the field, patient received CPR, not clearly known as to the length of time of CPR. According to the daughter it was at least 10 minutes. Patient received epinephrine, apparently she was found unresponsive at home. Upon arrival to the ER, patient was in at rial fibrillation, but controlled rate, patient was kept on mechanical ventilation, and this consult was initiated. Patient is now on assist-control rate of 24 tidal volume 350 FiO2 50% and PEEP of 5 ABG showed a pO2 of more than 400 pCO2 of 64 pH of 7.32. Hence I kept her on the same ventilator settings except FiO2 was cut down to 45%, rate was down to 20 and her flow rates were adjusted because of her relatively high peak airway pressure in the low 40s while in the ER. Patient is receiving IV fluids in the form of 0.9 normal saline at 75 cc/h. Patient had her first set of troponin came back abnormal, D- dimer also came back abnormal, chest x-ray is consistent with congestive heart failure and bilateral pleural effusions initially required norepinephrine for hypotension, but during my evaluation, the patient was normotensive and norepinephrine was on hold. Patient was started on amiodarone to control her atrial fibrillation. CT of the brain showed no evidence of active disease. WBC count showed leukocytosis with WBC of 12.7 hemoglobin 11.8 D-dimer was 12.07. pO2 more than 400 pCO2 64 pH of 7.32 BNP level is 4350. AST and ALT are elevated. Lactic acid on admission was 3.9 considering her atrial fibrillation and considering her elevated D-dimer, patient was placed on heparin per cardiology. Empirically patient was also placed on antibiotics in the form of Rocephin and Zithromax, and placed on bronchodilators for her underlying COPD as well as Solu-Medrol Review of Systems ROS unobtainable: due to endotracheal tube Past Medical History Past Medical History: COPD, Hyperlipidemia, Hypertension History of Any Multi-Drug Resistant Organisms: None Reported Past Surgical History: Tonsillectomy Past Anesthesia/Blood Transfusion Reactions: No Reported Reaction Past Psychological History: No Psychological Hx Reported Smoking Status: Former smoker Past Alcohol Use History: Occasional Past Drug Use History: None Reported Medications and Allergies Home Medications Medication Instructions Recorded Confirmed Type Alendronate Sodium [Fosamax] 70 mg PO TU 04/17/23 08/08/23 History Ferrous Sulfate [Iron (65 MG 325 mg PO MOWEFR 04/17/23 08/08/23 History Elemental)] Fluticasone/Umeclidin/Vilanter 1 puff INHALATION RT-DAILY 04/17/23 08/08/23 History [Trelegy Ellipta 100-62.5-25] Losartan Potassium 100 mg PO W/SUPPER 04/17/23 08/08/23 History Multivitamin [Multivitamins Adult 2 tab PO DAILY 04/17/23 08/08/23 History Gummies] Apixaban [Eliquis] 5 mg PO BID 08/08/23 08/08/23 History Cholecalciferol [Vitamin D3 (25 25 mcg PO SUTUTHSA 08/08/23 08/08/23 History Mcg = 1000 Iu)] Famotidine 20 mg PO HS 08/08/23 08/08/23 History Furosemide [Lasix] 20 mg PO DAILY 08/08/23 08/08/23 History Ipratropium-Albuterol Nebulize 3 ml INHALATION RT-TID 08/08/23 08/08/23 History [Duoneb 0.5 mg-3 mg/3 ml Soln] Magnesium Oxide [Mag-Ox] 400 mg PO DAILY 08/08/23 08/08/23 History Metoprolol Tartrate [Lopressor] 25 mg PO HS 08/08/23 08/08/23 History Metoprolol Tartrate [Lopressor] 50 mg PO DAILY 08/08/23 08/08/23 History Omeprazole [PriLOSEC] 40 mg PO AC-BID 08/08/23 08/08/23 History traZODone HCL [Desyrel] See Taper PO HS 08/08/23 08/08/23 History Allergies Allergy/AdvReac Type Severity Reaction Status Date / Time Penicillins Allergy Rash/Hives Verified 08/08/23 07:58 Physical Exam Vitals: Vital Signs Temp Pulse Resp BP Pulse Ox FiO2 08/08/23 15:00 98.0 F 122 H 14 100/60 100 08/08/23 14:45 110 H 12 83/64 100 08/08/23 14:30 111 H 9 L 77/61 100 08/08/23 14:15 112 H 10 L 90/64 100 08/08/23 14:00 98.1 F 120 H 12 84/63 100 08/08/23 13:45 107 H 12 94/50 100 08/08/23 13:30 116 H 12 100/66 100 08/08/23 13:15 122 H 14 102/50 100 08/08/23 13:02 98.0 F 116 H 14 121/70 100 08/08/23 12:30 112 H 12 112/66 99 08/08/23 12:15 117 H 16 104/84 99 08/08/23 12:00 98.6 F 111 H 16 107/68 100 08/08/23 11:46 124 H 20 103/68 100 08/08/23 11:35 99 08/08/23 11:30 113 H 18 117/68 100 08/08/23 11:27 40 08/08/23 11:15 112 H 20 113/88 100 08/08/23 11:00 96 22 100/73 100 08/08/23 10:45 95 200 H 126/96 100 08/08/23 10:30 110 H 24 160/127 100 08/08/23 10:15 110 H 22 151/130 100 08/08/23 10:00 98.2 F 110 H 20 93/62 100 08/08/23 09:45 101 H 16 107/87 100 08/08/23 09:30 92 20 102/81 100 08/08/23 09:15 109 H 14 104/89 100 08/08/23 09:04 98.0 F 106 H 21 152/102 100 08/08/23 08:45 121 H 19 156/105 100 08/08/23 08:30 124 H 22 135/83 100 08/08/23 08:15 118 H 20 144/104 100 08/08/23 08:11 45 08/08/23 08:00 138 H 21 144/91 100 08/08/23 07:58 50 08/08/23 07:55 98.5 F 116 H 16 142/94 100 08/08/23 06:00 128 H 24 119/92 100 08/08/23 05:00 122 H 24 134/111 100 08/08/23 04:40 123 H 24 160/117 100 08/08/23 04:00 108 H 24 119/74 100 08/08/23 03:05 50 08/08/23 03:02 24 08/08/23 02:45 112 H 20 111/97 100 08/08/23 02:25 113 H 20 110/55 100 08/08/23 02:20 114 H 20 90/69 100 08/08/23 02:17 115 H 20 88/60 100 08/08/23 02:10 115 H 20 59/23 100 08/08/23 02:02 100 08/08/23 02:00 113 H 20 70/59 100 08/08/23 01:58 151 H 20 85/59 100 100 08/08/23 01:54 20 08/08/23 01:46 138 H 20 138/123 98 Intake and Output 08/08/23 08/08/23 08/08/23 06:59 14:59 22:59 Intake Total 27.485 Output Total 90 Balance 27.485 -90 Intake: Intake, IV Titration 27.485 Amount Norepinephrine 4 mg In 27.485 Sodium Chloride 0.9% 250 ml @ 0.03 MCG/KG/MIN 6.74 mls/hr IV .Q24H ONE Rx#: [id number] Output: Urine 90 Uretheral (Ramos) 90 Other: Weight 58.967 kg General: Reveals an elderly female intubated mechanically ventilated, unresponsive to any stimuli. Skin: Skin is warm and dry and no rashes or lesions are noted. Eye: Pupils are equal, round and reactive to light, extra-ocular movements are intact; there is normal conjunctiva bilaterally. Ears, nose, mouth and throat: There are moist mucous membranes and no oral lesions. Neck: The neck is supple, there is no tenderness or JVD. Cardiovascular: Irregular irregular rhythm, 2/6 systolic murmur throughout the precordium. Respiratory: Minich breath sound bilaterally coarse of breath sounds, no rhonchi no wheezes Gastrointestinal: Soft nontender no megaly no rebound no guarding. Musculoskeletal: No deformities. Neurological: Patient is unresponsive to any stimuli. Patient has occasional jerking movement of lower extremities. And intermittently has been noted to be biting on the endotracheal tube Psychiatric: Could not assess, unresponsive to any stimuli. Results - Laboratory Findings CBC and BMP: 08/08/23 02:01 08/08/23 02:01 ABG ABG pH 7.32 (7.35-7.45) L 08/08/23 02:59 ABG pCO2 64 mmHg (35-45) H 08/08/23 02:59 ABG pO2 >400 mmHg (83-108) H 08/08/23 02:59 ABG O2 Saturation 99.8 % (94-97) H 08/08/23 02:59 PT/INR, D-dimer PT 13.5 sec (10.0-12.5) H 08/08/23 02:01 INR 1.3 (<1.2) H 08/08/23 02:01 D-Dimer 12.07 mg/L FEU (<0.60) H 08/08/23 02:01 Abnormal lab findings: Abnormal Labs 08/08/23 08/08/23 08/08/23 02:01 02:01 02:01 WBC 12.7 H MCHC 29.5 L Neutrophils # 11.2 H Lymphocytes # 0.7 L PT 13.5 H INR 1.3 H D-Dimer 12.07 H ABG pH ABG pCO2 ABG pO2 ABG HCO3 ABG Total CO2 ABG O2 Saturation Sodium 129 L Chloride 94 L Glucose 187 H Plasma Lactic Acid Jaime Calcium 8.0 L Phosphorus 4.8 H AST 175 H ALT 109 H Troponin I Total Protein 5.0 L Albumin 2.8 L TSH 12.400 H 08/08/23 08/08/23 08/08/23 02:01 02:01 02:59 WBC MCHC Neutrophils # Lymphocytes # PT INR D-Dimer ABG pH 7.32 L ABG pCO2 64 H ABG pO2 >400 H ABG HCO3 33 H ABG Total CO2 35 H ABG O2 Saturation 99.8 H Sodium Chloride Glucose Plasma Lactic Acid Jaime 5.3 H* Calcium Phosphorus AST ALT Troponin I 0.041 H* Total Protein Albumin TSH 08/08/23 08/08/23 08/08/23 07:10 10:57 13:19 WBC MCHC Neutrophils # Lymphocytes # PT INR D-Dimer ABG pH ABG pCO2 ABG pO2 ABG HCO3 ABG Total CO2 ABG O2 Saturation Sodium Chloride Glucose Plasma Lactic Acid Jaime 3.9 H* 3.9 H* Calcium Phosphorus AST ALT Troponin I 0.474 H* Total Protein Albumin TSH - Diagnostic Findings Chest x-ray: image reviewed (Chest x-ray showed bilateral pleural effusions larger on the left compared to the right, moderate amount of airspace opacities in both lungs, underlying pneumonia/is not entirely ruled out, although felt to have more of congestive heart failure findings) Assessment and Plan Assessment: Impression: cardiac arrest, with prolonged downtime Acute hypoxic respiratory failure secondary to cardiac arrest Acute congestive heart failure, not clear whether this is systolic or diastolic Possible aspiration pneumonia Elevated troponin Elevated D-dimer, thromboembolic disease is in the differential patient is on heparin Atrial fibrillation with RVR, on heparin and on amiodarone Acute transaminitis Multiple comorbid conditions Possible anoxic brain injury Recommendation: Continue ventilatory support Continue heparin Consider CTA of the chest once the patient is stable to go for CTA [place] the [place] n[place] continue heparin Check venous Doppler of the lower extremities Echocardiogram is pending Continue to monitor serial cardiac enzymes Continue amiodarone Continue bronchodilators GI and DVT prophylaxis Neurology consultation to look into the possibility of anoxic brain injury Patient is full code as per family's request at bedside Will continue to follow Prognosis is extremely poor and guarded Time with Patient: Greater than 30
--- NOTE | 2023-08-08 16:25 | P.CNNES ---
History of Present Illness Consult date: 08/08/23 Requesting physician: Patrice Rodriguez Reason for Consult: Posturing History of Present Illness: Patient is a 88-year-old female who was brought by ambulance for cardiac arrest at 1:45 AM early this morning. As per EMS flowsheet, they were activated at 12:34 AM early this morning. They arrived at the scene at 1:45 AM and had the contact with patient at 1:47 AM. When they arrived patient was in cardiac arrest. As per EMS flowsheet, patient's neighbor mentioned that patient was last seen about 20 minutes prior and she was okay. Patient's neighbor states that just prior to calling 911, she found patient unresponsive on the floor, not breathing. Patient has no recent history of illness. No past history of atrial fibrillation, hypertension, COPD. On examination patient was unresponsive with GCS of 3. Pulseless apneic, skin pale cyanotic and pupils are dilated and nonreactive. Chest compressions started with BVM ventilator. monitoring tech showed asystole. Patient was given epinephrine 1 mg IV push every 3 to 5 minutes x 3 doses. Patient was intubated with a size 7.5 mm ETT. Patient's blood glucose was 1 and 10 mg/dL. PEA noted after first epi was administered. Continued resuscitation and ROSC was achieved at 1:04 AM. SVT noted. Overall, it appears patient had a cardiac arrest for almost 30 minutes. Patient's vitals on arrival was blood pressure 138/123, pulse rate 138 and temperature 98.5. Blood test shows WBC 12.7 hemoglobin 11.8, platelets 155. INR 1.3. D-dimer 12.07. Sodium 129 potassium 4.5, normal renal functions. Lactate 5.3, AST 175, ALT 109. TSH is 12.4. UA negative. Troponin has gone up to 0.474. CT head revealed no acute process. Some small vessel disease. I personally reviewed CT head, agree with the findings. Chest x-ray showed supporting tubes. Bilateral pleural effusions, larger on the left. Moderate amount of airspace opacities in both lungs, more on the right suggest pneumonia. EKG showed atrial fibrillation with rapid ventricular response. While in the ER, patient was noted to have some posturing for which neurology was consulted. Per family report, patient does have some short-term memory issues. She has been walking using a walker. She lives with her daughter. Patient's daughter was present, who mentioned that patient was using a cane when she tripped and fell and became unresponsive. When she called ambulance patient did have some pulse, but uncertain at what time she lost the pulse, as about 11 minutes after calling the EMS, and when EMS arrived there was no pulse. Patient is on Eliquis as well. Review of Systems ROS unobtainable: due to endotracheal tube, due to mental status Past Medical History Past Medical History: COPD, Hyperlipidemia, Hypertension History of Any Multi-Drug Resistant Organisms: None Reported Past Surgical History: Tonsillectomy Past Anesthesia/Blood Transfusion Reactions: No Reported Reaction Past Psychological History: No Psychological Hx Reported Smoking Status: Former smoker Past Alcohol Use History: Occasional Past Drug Use History: None Reported Medications and Allergies Home Medications Medication Instructions Recorded Confirmed Type Alendronate Sodium [Fosamax] 70 mg PO TU 04/17/23 08/08/23 History Ferrous Sulfate [Iron (65 MG 325 mg PO MOWEFR 04/17/23 08/08/23 History Elemental)] Fluticasone/Umeclidin/Vilanter 1 puff INHALATION RT-DAILY 04/17/23 08/08/23 History [Trelegy Ellipta 100-62.5-25] Losartan Potassium 100 mg PO W/SUPPER 04/17/23 08/08/23 History Multivitamin [Multivitamins Adult 2 tab PO DAILY 04/17/23 08/08/23 History Gummies] Apixaban [Eliquis] 5 mg PO BID 08/08/23 08/08/23 History Cholecalciferol [Vitamin D3 (25 25 mcg PO SUTUTHSA 08/08/23 08/08/23 History Mcg = 1000 Iu)] Famotidine 20 mg PO HS 08/08/23 08/08/23 History Furosemide [Lasix] 20 mg PO DAILY 08/08/23 08/08/23 History Ipratropium-Albuterol Nebulize 3 ml INHALATION RT-TID 08/08/23 08/08/23 History [Duoneb 0.5 mg-3 mg/3 ml Soln] Magnesium Oxide [Mag-Ox] 400 mg PO DAILY 08/08/23 08/08/23 History Metoprolol Tartrate [Lopressor] 25 mg PO HS 08/08/23 08/08/23 History Metoprolol Tartrate [Lopressor] 50 mg PO DAILY 08/08/23 08/08/23 History Omeprazole [PriLOSEC] 40 mg PO AC-BID 08/08/23 08/08/23 History traZODone HCL [Desyrel] See Taper PO HS 08/08/23 08/08/23 History Allergies Allergy/AdvReac Type Severity Reaction Status Date / Time Penicillins Allergy Rash/Hives Verified 08/08/23 07:58 Physical Examination - Vital Signs Vital Signs: Vital Signs Temp Pulse Resp BP Pulse Ox FiO2 08/08/23 10:30 110 H 24 160/127 100 08/08/23 10:15 110 H 22 151/130 100 08/08/23 10:00 98.2 F 110 H 20 93/62 100 08/08/23 09:45 101 H 16 107/87 100 08/08/23 09:30 92 20 102/81 100 08/08/23 09:15 109 H 14 104/89 100 08/08/23 09:04 98.0 F 106 H 21 152/102 100 08/08/23 08:45 121 H 19 156/105 100 08/08/23 08:30 124 H 22 135/83 100 08/08/23 08:15 118 H 20 144/104 100 08/08/23 08:11 45 08/08/23 08:00 138 H 21 144/91 100 08/08/23 07:58 50 08/08/23 07:55 98.5 F 116 H 16 142/94 100 08/08/23 06:00 128 H 24 119/92 100 08/08/23 05:00 122 H 24 134/111 100 08/08/23 04:40 123 H 24 160/117 100 08/08/23 04:00 108 H 24 119/74 100 08/08/23 03:05 50 08/08/23 03:02 24 08/08/23 02:45 112 H 20 111/97 100 08/08/23 02:25 113 H 20 110/55 100 08/08/23 02:20 114 H 20 90/69 100 08/08/23 02:17 115 H 20 88/60 100 08/08/23 02:10 115 H 20 59/23 100 08/08/23 02:02 100 08/08/23 02:00 113 H 20 70/59 100 08/08/23 01:58 151 H 20 85/59 100 100 08/08/23 01:54 20 08/08/23 01:46 138 H 20 138/123 98 Intake and Output 08/07/23 08/08/23 08/08/23 22:59 06:59 14:59 Intake Total 27.485 Output Total 90 Balance 27.485 -90 Intake: Intake, IV Titration 27.485 Amount Norepinephrine 4 mg In 27.485 Sodium Chloride 0.9% 250 ml @ 0.03 MCG/KG/MIN 6.74 mls/hr IV .Q24H ONE Rx#: [id number] Output: Urine 90 Uretheral (Ramos) 90 Other: Weight 58.967 kg Patient is an elderly female, who is intubated on mechanical ventilator, sedated on propofol 10 mcg/kg/min. Patient is comatose, not responding to calling her name. Her GCS is 4. Speech and language functions cannot be assessed. On cranial nerve examination, pupils are very small, not clearly reactive. Oculocephalics are absent. Corneals absent. Patient does have a weak gag and cough reflex. Patient is not breathing over the ventilator. The ventilator is set at 20 and she is breathing at 20. On manually opening the eyes, patient's eyes sometimes twitch. Muscle strength cannot be assessed. Muscle tone is equal bilaterally. Patient does not respond to painful stimulus in the upper limbs, but she sometimes has myoclonic twitch of the upper torso with nailbed pressure. In the lower limbs patient withdraws or has triple flexion. Deep tendon reflexes are trace and plantars are flat. Sensory to touch cannot be assessed. Response to noxious stimulus as above. Cerebellar function cannot be assessed. Gait cannot be assessed. On general examination, there is no carotid bruit or murmur, S1-S2 audible. Chest is clear on consultation. Abdomen is soft nontender. No organomegaly, bowel sounds present. Mild peripheral edema. Results - Laboratory Findings CBC and BMP: 08/08/23 02:01 08/08/23 02:01 Abnormal Lab Findings: Abnormal Labs 08/08/23 08/08/23 08/08/23 02:01 02:01 02:01 WBC 12.7 H MCHC 29.5 L Neutrophils # 11.2 H Lymphocytes # 0.7 L PT 13.5 H INR 1.3 H D-Dimer 12.07 H ABG pH ABG pCO2 ABG pO2 ABG HCO3 ABG Total CO2 ABG O2 Saturation Sodium 129 L Chloride 94 L Glucose 187 H Plasma Lactic Acid Jaime Calcium 8.0 L Phosphorus 4.8 H AST 175 H ALT 109 H Troponin I Total Protein 5.0 L Albumin 2.8 L TSH 12.400 H 08/08/23 08/08/23 08/08/23 02:01 02:01 02:59 WBC MCHC Neutrophils # Lymphocytes # PT INR D-Dimer ABG pH 7.32 L ABG pCO2 64 H ABG pO2 >400 H ABG HCO3 33 H ABG Total CO2 35 H ABG O2 Saturation 99.8 H Sodium Chloride Glucose Plasma Lactic Acid Jaime 5.3 H* Calcium Phosphorus AST ALT Troponin I 0.041 H* Total Protein Albumin TSH 08/08/23 07:10 WBC MCHC Neutrophils # Lymphocytes # PT INR D-Dimer ABG pH ABG pCO2 ABG pO2 ABG HCO3 ABG Total CO2 ABG O2 Saturation Sodium Chloride Glucose Plasma Lactic Acid Jaime 3.9 H* Calcium Phosphorus AST ALT Troponin I Total Protein Albumin TSH Assessment and Plan Assessment: * Cardiac arrest with prolonged downtime of between 20 to 30 minutes. Patient showing signs of anoxic encephalopathy. * Acute hypoxic respiratory failure, due to cardiac arrest, on mechanical ventilation. * Abnormal EEG with evidence of burst suppression pattern. Some myoclonic twitches noted, more frequent with activating procedure. * Elevated D-dimer * Elevated troponins * Elevated liver enzymes * Atrial fibrillation * Hypertension * Hyperlipidemia * COPD * CHF Plan: * Stat EEG was performed, and preliminary report revealed severely abnormal with evidence of burst suppression pattern. The bursts consisted of high amplitude single sharp and slow wave occurring every 1 to 5 seconds. In between there is completely suppressed, isoelectric pattern. Patient was given Ativan 2 mg IV, after which the amplitude of this epileptiform activity decreased, and the periods of suppression increased to 5 to 9 seconds. The background did not improve. 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 Follow-up EEG, perhaps prolonged EEG recommended, if clinically indicated. * Patient given Keppra 1500 mg x 1 dose, and will be maintained on 1500 mg twice daily. * Initial CT head showed no acute process * Discussed with patient's family in detail about the current status including the EEG findings and overall prognosis. * Patient may need repeat CT head and EEG, if the patient's family prefers continuing full care. * Patient's myoclonic twitches has resolved since given Ativan and Keppra. * Patient has elevated D-dimer, and cardiology concerned about PE. Patient also has atrial fibrillation. Cardiology recommended heparin. Neurologically, it is high risk, but possibly benefits outweigh the risks. * Discussed with family members in detail on 2 different occasions, before EEG and after EEG. * Dr. Patten will cover neurology service over the weekend. Thank you for the consult. Time with Patient: Greater than 30
--- NOTE | 2023-08-08 17:34 | CA ---
Transthoracic Echo Report Name: Joan Farmer Age: 88 Gender: F : 1935 Exam Date: 08/08/2023 12:33 Exam Location: [facility] Ht (in): 63 Wt (lb): 130 Ordering Physician: Luis Enrique Padgett MD ([id number]) Attending/Referring Phys: Managing Consultant Soumya Kim RCS Procedure CPT: Indications: elevated troponin Cardiac Hx: Technical Quality: Fair Contrast 1: Total Dose (mL): Contrast 2: Total Dose (mL): MEASUREMENTS (Male / Female) Normal Values 2D ECHO LV Diastolic Diameter PLAX 3.4 cm 4.2 - 5.9 / 3.9 - 5.3 cm LV Systolic Diameter PLAX 2.7 cm IVS Diastolic Thickness 1.1 cm 0.6 - 1.0 / 0.6 - 0.9 cm LVPW Diastolic Thickness 1.4 cm 0.6 - 1.0 / 0.6 - 0.9 cm LV Relative Wall Thickness 0.7 RV Internal Dim ED PLAX 2.5 cm LVOT Diameter 2.0 cm LA Volume 55.7 cm??? 18 - 58 / 22 - 52 cm??? LA Volume Index 34.3 cm???/m??? 16 - 28 cm???/m??? DOPPLER AV Peak Velocity 150.4 cm/s AV Peak Gradient 9.1 mmHg AV Mean Velocity 101.3 cm/s AV Mean Gradient 4.7 mmHg AV Velocity Time Integral 20.3 cm LVOT Peak Velocity 119.5 cm/s LVOT Peak Gradient 5.7 mmHg LVOT Velocity Time Integral 17.5 cm LVOT Stroke Volume 53.3 cm??? LVOT Stroke Volume Index 33.1 ml/m??? LVOT Cardiac Index 4194.0 cm???/min???m??? AV Area Cont Eq vti 2.6 cm??? AV Area Cont Eq pk 2.4 cm??? TR Peak Velocity 259.1 cm/s TR Peak Gradient 26.8 mmHg Right Atrial Pressure 20.0 mmHg Pulmonary Artery Systolic Pressu 46.8 mmHg Right Ventricular Systolic Press 46.8 mmHg PV Peak Velocity 65.7 cm/s PV Peak Gradient 1.7 mmHg FINDINGS Left Ventricle Left ventricular ejection fraction is estimated at 45-50 % with beat to beat variability. Mildly increased septal wall thickness. Moderately increased posterior wall thickness. Left ventricular cavity size normal. No obvious regional wall motion abnormalities. Right Ventricle Normal right ventricular size and function. Moderately elevated right ventricular systolic pressure. Right Atrium Moderate right atrial dilatation. Left Atrium Mildly increased left atrial volume. Mitral Valve Mitral valve thickened. No evidence for mitral valve prolapse. No mitral stenosis. Trace mitral regurgitation. Aortic Valve Trileaflet aortic valve. Focal thickening of the aortic valve cusps. No aortic stenosis. No aortic regurgitation. Tricuspid Valve Structurally normal tricuspid valve. No tricuspid stenosis. Mild tricuspid regurgitation. Pulmonic Valve Structurally normal pulmonic valve. No pulmonic stenosis. Trace pulmonic regurgitation. Pericardium Small posterior pericardial effusion, moderate anterior pericardial effusion. Left pleural effusion. Aorta Normal size aortic root and proximal ascending aorta. CONCLUSIONS Mild LV systolic dysfunction Moderate left ventricular hypertrophy Mild tricuspid regurgitation Moderate pericardial effusion Pleural effusion Previewed by: Dr. Maynor Reed MD (Electronically Signed) Final Date: 08 August 2023 17:33
[2023-08-08] MEDS: FORMOTEROL FUMARATE 20 MCG/2 ML NEBU INHALATION SCH (19:22)
[2023-08-08] MEDS: BUDESONIDE 1 MG/2 ML NEBU INHALATION SCH (19:22)
[2023-08-08] MEDS: DOXYCYCLINE 100 MG in SODIUM CHLORIDE 0.9% 100 ML IVPB SCH (21:21)
[2023-08-08] MEDS: levETIRAcetam IV 500 MG/5 ML VIAL IVP SCH (21:27)
--- NOTE | 2023-08-08 23:51 | EEG ---
ELECTROENCEPHALOGRAM REPORT PREAMBLE: This is an 88-year-old female with cardiac arrest. This study performed to evaluate for encephalopathy, rule out any epileptiform activity. EEG FINDINGS: This is a 21-channel portable EEG recorded with video component, utilizing 10/20 international system with referential and bipolar montages. The recording starts and continues with presence of burst suppression. The bursts consisting of single high- amplitude generalized spike and slow waves, occurring every 1 to 5 seconds, and between completely isoelectric pattern seen. Occasional myoclonic twitches were also noted. After the patient received 2 mg Ativan IV, the amplitude of these spikes decreased, and the interval, increased up to 7-9 seconds. No electrographic seizure was recorded. IMPRESSION: Severely abnormal EEG due to presence of burst suppressed pattern as mentioned above. This is suggestive of generalized cerebral dysfunction as can be seen with severe anoxic or toxic metabolic encephalopathies. Presence of high amplitude bursts of sharp waves suggest underlying cortical irritability and tendency for seizures. Overall, this pattern pertains poor prognosis. Followup EEG and continuous EEG recommended. MMNIKOLAY / KIMMIEN: [id number] / TEE
[2023-08-09] MEDS: METOPROLOL TARTRATE 5 MG/5 ML VIAL IVP STA (01:12)
[2023-08-09 02:16] LABS: Basophils % (A) 0 %; Eosinophils % (A) 0 %; HCT 37.1 % (34.0-46.0); HGB 11.8 gm/dL (11.4-16.0); Hypochromasia Marked; Lymphocytes # (A) 0.4 k/uL (1.0-4.8); Lymphocytes % (A) 2 %; MCH 29.8 pg (25.0-35.0); MCHC 31.7 g/dL (31.0-37.0); Mean Platelet Volume 9.9; Monocytes # (A) 0.9 k/uL (0-1.0); Monocytes % (A) 4 %; Neutrophils # (A) 22.1 k/uL (1.3-7.7); Neutrophils % (A) 94 %; Platelet Count 148 k/uL (150-450); RBC 3.95 m/uL (3.80-5.40); RDW 14.1 % (11.5-15.5); WBC 23.4 k/uL (3.8-10.6)
[2023-08-09 05:14] LABS: Basophils % (A) 0 %; Eosinophils % (A) 0 %; HCT 37.9 % (34.0-46.0); HGB 11.5 gm/dL (11.4-16.0); Hypochromasia Marked; Lymphocytes # (A) 0.4 k/uL (1.0-4.8); Lymphocytes % (A) 2 %; MCH 28.4 pg (25.0-35.0); MCHC 30.3 g/dL (31.0-37.0); MCV 93.9 fL (80.0-100.0); Mean Platelet Volume 9.4; Monocytes # (A) 0.6 k/uL (0-1.0); Monocytes % (A) 3 %; Neutrophils # (A) 20.5 k/uL (1.3-7.7); Neutrophils % (A) 95 %; Platelet Count 132 k/uL (150-450); RBC 4.04 m/uL (3.80-5.40); RDW 14.1 % (11.5-15.5); WBC 21.6 k/uL (3.8-10.6)
[2023-08-09 05:18] LABS: ABG Base Excess 8.8 mmol/L; ABG HCO3 33 mmol/L (21-25); ABG Oxygen Saturation 99.1 % (94-97); ABG PCO2 46 mmHg (35-45); ABG PH 7.46 (7.35-7.45); ABG PO2 122 mmHg (83-108); ABG TCO2 34 mmol/L (19-24); Allen Test Performed? Yes
[2023-08-09 06:23] LABS: ALT 93 U/L (4-34); AST 105 U/L (14-36); African American GFR (CKD) 53 (>60 ml/min/1.73 sqM); Albumin 2.7 g/dL (3.5-5.0); Alkaline Phosphatase 78 U/L (38-126); Anion Gap 3 mmol/L; Blood Urea Nitrogen 27 mg/dL (7-17); Calcium 8.3 mg/dL (8.4-10.2); Carbon Dioxide 31 mmol/L (22-30); Chloride 96 mmol/L (98-107); Glucose 196 mg/dL (74-99); Magnesium 2.1 mg/dL (1.6-2.3); Non-African American GFR(CKD) 46 (>60 ml/min/1.73 sqM); Phosphorus 2.5 mg/dL (2.5-4.5); Potassium 4.3 mmol/L (3.5-5.1); Sodium 130 mmol/L (137-145); Total Bilirubin 0.5 mg/dL (0.2-1.3); Total Protein 4.9 g/dL (6.3-8.2)
--- NOTE | 2023-08-09 07:22 | XR ---
EXAMINATION TYPE: XR chest 1V portable DATE OF EXAM: 08/09/2023 Comparison: 08/08/2023 Clinical History: 88-year-old female resp failure Findings: ET tube is satisfactory. NG tube sidehole at the GE junction level. Consider advancement by 5 cm with atelectasis. Heart mildly enlarged. Hyperinflation. Interstitial density shows slight improvement. O ngoing extensive left retrocardiac and left basilar opacity. Impression: 1. Consider advancing the NG tube so that the sidehole enters the stomach. 2. COPD with suspected superimposed mild CHF, improving from prior. 3. Moderate left pleural effusion with adjacent atelectasis and/or consolidation persists.
[2023-08-09 07:55] LABS: Basophils % (A) 0 %; Eosinophils % (A) 0 %; HCT 38.8 % (34.0-46.0); HGB 11.7 gm/dL (11.4-16.0); Hypochromasia Moderate; Lymphocytes # (A) 0.5 k/uL (1.0-4.8); Lymphocytes % (A) 2 %; MCH 28.5 pg (25.0-35.0); MCHC 30.2 g/dL (31.0-37.0); MCV 94.4 fL (80.0-100.0); Mean Platelet Volume 9.2; Monocytes # (A) 0.7 k/uL (0-1.0); Monocytes % (A) 3 %; Neutrophils % (A) 95 %; Platelet Count 159 k/uL (150-450); RBC 4.11 m/uL (3.80-5.40); WBC 24.2 k/uL (3.8-10.6)
[2023-08-09 08:41] LABS: ALT 102 U/L (4-34); AST 114 U/L (14-36); African American GFR (CKD) 46 (>60 ml/min/1.73 sqM); Albumin 2.9 g/dL (3.5-5.0); Alkaline Phosphatase 83 U/L (38-126); Anion Gap 5 mmol/L; Blood Urea Nitrogen 29 mg/dL (7-17); Calcium 8.3 mg/dL (8.4-10.2); Carbon Dioxide 31 mmol/L (22-30); Chloride 93 mmol/L (98-107); Glucose 191 mg/dL (74-99); Non-African American GFR(CKD) 40 (>60 ml/min/1.73 sqM); Potassium 4.3 mmol/L (3.5-5.1); Sodium 129 mmol/L (137-145); Total Bilirubin 0.5 mg/dL (0.2-1.3); Total Protein 5.2 g/dL (6.3-8.2)
--- NOTE | 2023-08-09 09:58 | CT ---
EXAMINATION TYPE: CT brain wo con DATE OF EXAM: 08/09/2023 COMPARISON: 08/08/2023 HISTORY: 88-year-old female cerebral anoxia TECHNIQUE: Examination was done in axial plane without intravenous contrast. Coronal and sagittal r econstructions performed. CT DLP: 1091.4 mGycm Automated exposure control for dose reduction was used. FINDINGS: There is no evidence of acute intracranial hemorrhage, acute ischemic changes, mass, mass-effect, or extra-axial fluid collection. There is no effacement of cerebral sulci or basal subarachnoid cister ns. There is no hydrocephalus. There is no midline shift. Bedoya-white matter distinction is preserv ed. Atherosclerotic calcifications in the bilateral carotid siphons. Moderate patchy and confluent white matter hypodensities in both cerebral hemispheres unchanged. Paranasal sinuses well pneumatized. Orbits and globes are intact. Mastoid air cells remain clear. IMPRESSION: Similar moderate patchy and confluent burden of chronic small vessel ischemic disease. Otherwise, sta ble exam without acute intracranial abnormality seen.
[2023-08-09] MEDS: PANTOPRAZOLE 40 MG/10 ML VIAL IVP SCH (10:11)
[2023-08-09] MEDS: CLINDAMYCIN 600 MG in DEXTROSE 5% IN WATER 50 ML IVPB SCH (10:12)
[2023-08-09] MEDS: DILTIAZEM 125 MG in SODIUM CHLORIDE 0.9% 100 ML IV SCH (11:46)
[2023-08-09] MEDS ORDERED: MORPHINE SULFATE 4 MG/ML SYRINGE IV PRN (12:41)
[2023-08-09] MEDS: MORPHINE SULFATE 4 MG/ML SYRINGE IV PRN (13:12)
[2023-08-09] MEDS: LORazepam 2 MG/ML INJ IV PRN (13:12)
--- NOTE | 2023-08-09 13:31 | P.PN ---
Subjective Progress Note Date: 08/09/23 Principal diagnosis: Cardiac arrest This is an 88-year-old female, known history of COPD, hypertension, dyslipidemia, patient apparently had a witnessed cardiac arrest at home, EMS responded to the scene, patient was intubated in the field, patient received CPR, not clearly known as to the length of time of CPR. According to the daughter it was at least 10 minutes. Patient received epinephrine, apparently she was found unresponsive at home. Upon arrival to the ER, patient was in atrial fibrillation, but controlled rate, patient was kept on mechanical ventilation, and this consult was initiated. Patient is now on assist-control rate of 24 tidal volume 350 FiO2 50% and PEEP of 5 ABG showed a pO2 of more than 400 pCO2 of 64 pH of 7.32. Hence I kept her on the same ventilator settings except FiO2 was cut down to 45%, rate was down to 20 and her flow rates were adjusted because of her relatively high peak airway pressure in the low 40s while in the ER. Patient is receiving IV fluids in the form of 0.9 normal saline at 75 cc/h. Patient had her first set of troponin came back abnormal, D- dimer also came back abnormal, chest x-ray is consistent with congestive heart failure and bilateral pleural effusions initially required norepinephrine for hypotension, but during my evaluation, the patient was normotensive and norepinephrine was on hold. Patient was started on amiodarone to control her atrial fibrillation. CT of the brain showed no evidence of active disease. WBC count showed leukocytosis with WBC of 12.7 hemoglobin 11.8 D-dimer was 12.07. pO2 more than 400 pCO2 64 pH of 7.32 BNP level is 4350. AST and ALT are elevated. Lactic acid on admission was 3.9 considering her atrial fibrillation and considering her elevated D-dimer, patient was placed on heparin per cardiology. Empirically patient was also placed on antibiotics in the form of Rocephin and Zithromax, and placed on bronchodilators for her underlying COPD as well as Solu-Medrol Patient was reevaluated today on 08/09/2023, remains in the ER waiting for ICU bed, remains intubated and mechanically ventilated. Patient is on assist- control rate of 20 tidal volume 350 FiO2 40% and PEEP of 5. Patient is still on amiodarone at 0.5 mg/min, however remains in atrial fibrillation with RVR rate as high as 150. Patient is on propofol 15 mcg/kg/min and I increased the propofol up to 25 mcg/kg/min just to make sure that the patient is synchronous with the ventilator. ABG showed a pO2 of 122 pCO2 46 pH of 7.46, hence FiO2 was cut down to 35%. Chest x-ray is showing worsening bilateral pneumonia/airspace disease, also worsening interstitial edema and I am recommending clindamycin 600 mg IV piggyback every 8 hours. Patient remains on heparin drip, she remains on amiodarone drip,WBC count is up to 24.2 hemoglobin is 11.7. Sodium is 129 potassium 4.3 bicarb is 31 BUN 29 creatinine 1.22 slight worsening of the creatinine noted. EEG done yesterday showed severely abnormal EEG with presence of burst suppressed pattern, suggestive of generalized cerebral dysfunction seen with severe anoxic or toxic metabolic encephalopathies. Also the EEG showed cortical irritability and tendency for seizures, hence the patient was placed on Keppra as per neurology on the case. Objective - Vital Signs Vital signs: Vital Signs Temp 98.8 F 08/09/23 08:00 Pulse 138 H 08/09/23 10:45 Resp 27 H 08/09/23 10:45 BP 108/72 08/09/23 10:45 Pulse Ox 100 08/09/23 10:45 FiO2 35 08/09/23 12:12 Intake & Output 08/08/23 08/09/23 08/09/23 18:59 06:59 18:59 Intake Total 461.154 Output Total 195 45 Balance -195 416.154 Intake: Intake, IV Titration 461.154 Amount Amiodarone 450 mg In 243.338 Dextrose 5% in Water 250 ml @ 0.5 MG/MIN 16.667 mls/hr IV .Q15H [facility] Rx#: [id number] Heparin Sod,Pork in 0.45% 117.816 NaCl 25,000 unit In 0.45 % NaCl 1 250ml.bag @ 12 UNITS/KG/HR 7.076 mls/hr IV .Q24H [facility] Rx#: [id number] propofoL 1,000 mg In 100.000 Empty Bag 1 bag @ 15 MCG/ KG/MIN 5.307 mls/hr IV . [id number] [facility] Rx#:[id number] Output: Urine 195 45 Uretheral (Ramos) 120 45 - Exam General: 88-year-old female unresponsive to any stimuli, opens eyes, but unresponsive. Skin: Skin is warm and dry and no rashes or lesions are noted. Eye: Pupils are equal, round and reactive to light, extra-ocular movements are intact; there is normal conjunctiva bilaterally. Ears, nose, mouth and throat: There are moist mucous membranes and no oral lesions. Neck: The neck is supple, there is no tenderness or JVD. Cardiovascular: Tachycardic, irregular irregular rhythm, 2/6 systolic murmur throughout the precordium. Respiratory: Rhonchi noted bilaterally. Diminished breath sounds at the bases coarse of breath sounds Gastrointestinal: Soft nontender no megaly no rebound no guarding. Musculoskeletal: No deformities. Neurological: Patient is unresponsive to any stimuli. Opens eyes only but no purposeful movement. Psychiatric: Could not assess, unresponsive to any stimuli. - Labs CBC & Chem 7: 08/09/23 06:56 08/09/23 06:56 Labs: Abnormal Lab Results - Last 24 Hours (Table) 08/08/23 08/08/23 08/08/23 Range/Units 13:19 17:38 17:38 WBC (3.8-10.6) k/uL MCHC (31.0-37.0) g/dL Plt Count (150-450) k/uL Neutrophils # (1.3-7.7) k/uL Lymphocytes # (1.0-4.8) k/uL APTT (22.0-30.0) sec ABG pH (7.35-7.45) ABG pCO2 (35-45) mmHg ABG pO2 (83-108) mmHg ABG HCO3 (21-25) mmol/L ABG Total CO2 (19-24) mmol/L ABG O2 Saturation (94-97) % Sodium (137-145) mmol/L Chloride (98-107) mmol/L Carbon Dioxide (22-30) mmol/L BUN (7-17) mg/dL Creatinine (0.52-1.04) mg/dL Glucose (74-99) mg/dL Plasma Lactic Acid Jaime 3.2 H* (0.7-2.0) mmol/L Calcium (8.4-10.2) mg/dL AST (14-36) U/L ALT (4-34) U/L Troponin I 0.474 H* 0.518 H* (0.000-0.034) ng/mL Total Protein (6.3-8.2) g/dL Albumin (3.5-5.0) g/dL 08/08/23 08/08/23 08/09/23 Range/Units 20:17 22:21 01:36 WBC 23.4 H (3.8-10.6) k/uL MCHC (31.0-37.0) g/dL Plt Count 148 L (150-450) k/uL Neutrophils # 22.1 H (1.3-7.7) k/uL Lymphocytes # 0.4 L (1.0-4.8) k/uL APTT 67.7 H (22.0-30.0) sec ABG pH (7.35-7.45) ABG pCO2 (35-45) mmHg ABG pO2 (83-108) mmHg ABG HCO3 (21-25) mmol/L ABG Total CO2 (19-24) mmol/L ABG O2 Saturation (94-97) % Sodium (137-145) mmol/L Chloride (98-107) mmol/L Carbon Dioxide (22-30) mmol/L BUN (7-17) mg/dL Creatinine (0.52-1.04) mg/dL Glucose (74-99) mg/dL Plasma Lactic Acid Jaime 3.9 H* (0.7-2.0) mmol/L Calcium (8.4-10.2) mg/dL AST (14-36) U/L ALT (4-34) U/L Troponin I (0.000-0.034) ng/mL Total Protein (6.3-8.2) g/dL Albumin (3.5-5.0) g/dL 08/09/23 08/09/23 08/09/23 Range/Units 01:36 04:38 04:38 WBC 21.6 H (3.8-10.6) k/uL MCHC 30.3 L (31.0-37.0) g/dL Plt Count 132 L (150-450) k/uL Neutrophils # 20.5 H (1.3-7.7) k/uL Lymphocytes # 0.4 L (1.0-4.8) k/uL APTT (22.0-30.0) sec ABG pH (7.35-7.45) ABG pCO2 (35-45) mmHg ABG pO2 (83-108) mmHg ABG HCO3 (21-25) mmol/L ABG Total CO2 (19-24) mmol/L ABG O2 Saturation (94-97) % Sodium 130 L (137-145) mmol/L Chloride 96 L (98-107) mmol/L Carbon Dioxide 31 H (22-30) mmol/L BUN 27 H (7-17) mg/dL Creatinine 1.08 H (0.52-1.04) mg/dL Glucose 196 H (74-99) mg/dL Plasma Lactic Acid Jaime 3.8 H* (0.7-2.0) mmol/L Calcium 8.3 L (8.4-10.2) mg/dL AST 105 H (14-36) U/L ALT 93 H (4-34) U/L Troponin I (0.000-0.034) ng/mL Total Protein 4.9 L (6.3-8.2) g/dL Albumin 2.7 L (3.5-5.0) g/dL 08/09/23 08/09/23 08/09/23 Range/Units 04:38 04:42 05:17 WBC (3.8-10.6) k/uL MCHC (31.0-37.0) g/dL Plt Count (150-450) k/uL Neutrophils # (1.3-7.7) k/uL Lymphocytes # (1.0-4.8) k/uL APTT 84.2 H (22.0-30.0) sec ABG pH 7.46 H (7.35-7.45) ABG pCO2 46 H (35-45) mmHg ABG pO2 122 H (83-108) mmHg ABG HCO3 33 H (21-25) mmol/L ABG Total CO2 34 H (19-24) mmol/L ABG O2 Saturation 99.1 H (94-97) % Sodium (137-145) mmol/L Chloride (98-107) mmol/L Carbon Dioxide (22-30) mmol/L BUN (7-17) mg/dL Creatinine (0.52-1.04) mg/dL Glucose (74-99) mg/dL Plasma Lactic Acid Jaime 2.5 H* (0.7-2.0) mmol/L Calcium (8.4-10.2) mg/dL AST (14-36) U/L ALT (4-34) U/L Troponin I (0.000-0.034) ng/mL Total Protein (6.3-8.2) g/dL Albumin (3.5-5.0) g/dL 08/09/23 08/09/23 Range/Units 06:56 06:56 WBC 24.2 H (3.8-10.6) k/uL MCHC 30.2 L (31.0-37.0) g/dL Plt Count (150-450) k/uL Neutrophils # 23.0 H (1.3-7.7) k/uL Lymphocytes # 0.5 L (1.0-4.8) k/uL APTT (22.0-30.0) sec ABG pH (7.35-7.45) ABG pCO2 (35-45) mmHg ABG pO2 (83-108) mmHg ABG HCO3 (21-25) mmol/L ABG Total CO2 (19-24) mmol/L ABG O2 Saturation (94-97) % Sodium 129 L (137-145) mmol/L Chloride 93 L (98-107) mmol/L Carbon Dioxide 31 H (22-30) mmol/L BUN 29 H (7-17) mg/dL Creatinine 1.22 H (0.52-1.04) mg/dL Glucose 191 H (74-99) mg/dL Plasma Lactic Acid Jaime (0.7-2.0) mmol/L Calcium 8.3 L (8.4-10.2) mg/dL AST 114 H (14-36) U/L ALT 102 H (4-34) U/L Troponin I (0.000-0.034) ng/mL Total Protein 5.2 L (6.3-8.2) g/dL Albumin 2.9 L (3.5-5.0) g/dL Microbiology - Last 24 Hours (Table) 08/08/23 02:17 Gram Stain - Preliminary Sputum Sputum Culture - Preliminary Gram Neg Bacilli Assessment and Plan Assessment: Impression: cardiac arrest, with prolonged downtime Acute hypoxic respiratory failure secondary to cardiac arrest Acute congestive heart failure, seems to be mostly systolic in nature with mild LV dysfunction noted on the echocardiogram. And moderate pericardial effusion noted. Possible aspiration pneumonia Elevated troponin Elevated D-dimer, thromboembolic disease is in the differential patient is on heparin Atrial fibrillation with RVR, on heparin and on amiodarone Acute transaminitis Multiple comorbid conditions anoxic brain injury Recommendation: Continue ventilatory support Continue heparin Continue amiodarone Continue bronchodilators GI and DVT prophylaxis Antibiotics, will add clindamycin and discontinue doxycycline. Will need to be approached regarding CODE STATUS and possibly comfort care measures Overall prognosis is extremely poor and guarded. Mostly because of her what seems to be anoxic brain injury. Will continue to follow Critical care time is over 30 minutes Time with Patient: Greater than 30
--- NOTE | 2023-08-09 13:33 | P.PN ---
Subjective Progress Note Date: 08/09/23 Principal diagnosis: Anoxic encephalopathy The patient is an 88-year-old female who is seen in neurologic follow-up on August 09, 2023, in cross coverage for Dr. Lentz, in collaboration with Estee Castaneda, via teleneurology The chart has been reviewed. As per EMS flowsheet, they were activated at 12:34 AM early this morning. They arrived at the scene at 1:45 AM and had the contact with patient at 1:47 AM. When they arrived patient was in cardiac arrest. As per EMS flowsheet, patient's neighbor mentioned that patient was last seen about 20 minutes prior and she was okay. Patient's neighbor states that just prior to calling 911, she found patient unresponsive on the floor, not breathing. Patient has no recent history of illness. No past history of atrial fibrillation, hypertension, COPD. On examination patient was unresponsive with GCS of 3. Pulseless apneic, skin pale cyanotic and pupils are dilated and nonreactive. Chest compressions started with BVM ventilator. bus monitor showed asystole. Patient was given epinephrine 1 mg IV push every 3 to 5 minutes x 3 doses. Patient was intubated with a size 7.5 mm ETT. Patient's blood glucose was 1 and 10 mg/dL. PEA noted after first epi was administered. Continued resuscitation and ROSC was achieved at 1:04 AM. SVT noted. Overall, it appears patient had a cardiac arrest for almost [address] of the brain images have been personally viewed. I agree with the report. Objective - Vital Signs Vital signs: Vital Signs Temp 98.7 F 08/08/23 23:00 Pulse 165 H 08/09/23 06:45 Resp 21 08/09/23 06:45 BP 108/81 08/09/23 06:45 Pulse Ox 98 08/09/23 06:45 FiO2 40 08/09/23 03:34 Intake & Output 08/08/23 08/09/23 08/09/23 18:59 06:59 18:59 Intake Total 461.154 Output Total 120 45 Balance -120 416.154 Intake: Intake, IV Titration 461.154 Amount Amiodarone 450 mg In 243.338 Dextrose 5% in Water 250 ml @ 0.5 MG/MIN 16.667 mls/hr IV .Q15H [facility] Rx#: [id number] Heparin Sod,Pork in 0.45% 117.816 NaCl 25,000 unit In 0.45 % NaCl 1 250ml.bag @ 12 UNITS/KG/HR 7.076 mls/hr IV .Q24H [facility] Rx#: [id number] propofoL 1,000 mg In 100.000 Empty Bag 1 bag @ 15 MCG/ KG/MIN 5.307 mls/hr IV . [id number] [facility] Rx#:[id number] Output: Urine 120 45 Uretheral (Ramos) 120 45 - Exam General: The patient is reclining on a gurney in the emergency department. She is intubated.. The patient is sedated with 1.5 mg of propofol. She also has an amiodarone and heparin drip HEENT: Head is atraumatic, normocephalic. Fundus not visualized. There is no scleral icterus. Mucous membranes are moist. Heart: Regular rate and rhythm Lungs: Patient is not breathing over the vent Extremities: Without edema Neurological examination Mental status: The patient is intubated and sedated. She does not open her eyes to verbal or noxious stimulation. She follows no commands. Cranial nerves: Pupils are unequal with the right pupil being 4 mm and the left pupil 3 mm. Both are reactive. Corneal reflexes are intact. There is no ob vious facial asymmetry. Motor: There are no spontaneous movements. There is no evidence of myoclonic jerks or abnormal movements. Sensation: There is grimace to noxious stimulation of the left upper extremity. There is no response to noxious stimulation of the left upper extremity. Right lower extremity withdraws in response to noxious stimulation in the left lower extremity has a very slight withdrawal. Deep tendon reflexes: 2+/4+ in the right upper extremity. 3+/4+ left upper extremity. Lower extremity reflexes are absent. Plantar responses are mute. - Labs CBC & Chem 7: 08/09/23 06:56 08/09/23 06:56 Labs: Abnormal Lab Results - Last 24 Hours (Table) 08/08/23 08/08/23 08/08/23 Range/Units 07:10 10:57 13:19 WBC (3.8-10.6) k/uL MCHC (31.0-37.0) g/dL Plt Count (150-450) k/uL Neutrophils # (1.3-7.7) k/uL Lymphocytes # (1.0-4.8) k/uL APTT (22.0-30.0) sec ABG pH (7.35-7.45) ABG pCO2 (35-45) mmHg ABG pO2 (83-108) mmHg ABG HCO3 (21-25) mmol/L ABG Total CO2 (19-24) mmol/L ABG O2 Saturation (94-97) % Sodium (137-145) mmol/L Chloride (98-107) mmol/L Carbon Dioxide (22-30) mmol/L BUN (7-17) mg/dL Creatinine (0.52-1.04) mg/dL Glucose (74-99) mg/dL Plasma Lactic Acid Jaime 3.9 H* 3.9 H* (0.7-2.0) mmol/L Calcium (8.4-10.2) mg/dL AST (14-36) U/L ALT (4-34) U/L Troponin I 0.474 H* (0.000-0.034) ng/mL Total Protein (6.3-8.2) g/dL Albumin (3.5-5.0) g/dL 08/08/23 08/08/23 08/08/23 Range/Units 17:38 17:38 20:17 WBC (3.8-10.6) k/uL MCHC (31.0-37.0) g/dL Plt Count (150-450) k/uL Neutrophils # (1.3-7.7) k/uL Lymphocytes # (1.0-4.8) k/uL APTT 67.7 H (22.0-30.0) sec ABG pH (7.35-7.45) ABG pCO2 (35-45) mmHg ABG pO2 (83-108) mmHg ABG HCO3 (21-25) mmol/L ABG Total CO2 (19-24) mmol/L ABG O2 Saturation (94-97) % Sodium (137-145) mmol/L Chloride (98-107) mmol/L Carbon Dioxide (22-30) mmol/L BUN (7-17) mg/dL Creatinine (0.52-1.04) mg/dL Glucose (74-99) mg/dL Plasma Lactic Acid Jaime 3.2 H* (0.7-2.0) mmol/L Calcium (8.4-10.2) mg/dL AST (14-36) U/L ALT (4-34) U/L Troponin I 0.518 H* (0.000-0.034) ng/mL Total Protein (6.3-8.2) g/dL Albumin (3.5-5.0) g/dL 08/08/23 08/09/23 08/09/23 Range/Units 22:21 01:36 01:36 WBC 23.4 H (3.8-10.6) k/uL MCHC (31.0-37.0) g/dL Plt Count 148 L (150-450) k/uL Neutrophils # 22.1 H (1.3-7.7) k/uL Lymphocytes # 0.4 L (1.0-4.8) k/uL APTT (22.0-30.0) sec ABG pH (7.35-7.45) ABG pCO2 (35-45) mmHg ABG pO2 (83-108) mmHg ABG HCO3 (21-25) mmol/L ABG Total CO2 (19-24) mmol/L ABG O2 Saturation (94-97) % Sodium (137-145) mmol/L Chloride (98-107) mmol/L Carbon Dioxide (22-30) mmol/L BUN (7-17) mg/dL Creatinine (0.52-1.04) mg/dL Glucose (74-99) mg/dL Plasma Lactic Acid Jaime 3.9 H* 3.8 H* (0.7-2.0) mmol/L Calcium (8.4-10.2) mg/dL AST (14-36) U/L ALT (4-34) U/L Troponin I (0.000-0.034) ng/mL Total Protein (6.3-8.2) g/dL Albumin (3.5-5.0) g/dL 08/09/23 08/09/23 08/09/23 Range/Units 04:38 04:38 04:38 WBC 21.6 H (3.8-10.6) k/uL MCHC 30.3 L (31.0-37.0) g/dL Plt Count 132 L (150-450) k/uL Neutrophils # 20.5 H (1.3-7.7) k/uL Lymphocytes # 0.4 L (1.0-4.8) k/uL APTT 84.2 H (22.0-30.0) sec ABG pH (7.35-7.45) ABG pCO2 (35-45) mmHg ABG pO2 (83-108) mmHg ABG HCO3 (21-25) mmol/L ABG Total CO2 (19-24) mmol/L ABG O2 Saturation (94-97) % Sodium 130 L (137-145) mmol/L Chloride 96 L (98-107) mmol/L Carbon Dioxide 31 H (22-30) mmol/L BUN 27 H (7-17) mg/dL Creatinine 1.08 H (0.52-1.04) mg/dL Glucose 196 H (74-99) mg/dL Plasma Lactic Acid Jaime (0.7-2.0) mmol/L Calcium 8.3 L (8.4-10.2) mg/dL AST 105 H (14-36) U/L ALT 93 H (4-34) U/L Troponin I (0.000-0.034) ng/mL Total Protein 4.9 L (6.3-8.2) g/dL Albumin 2.7 L (3.5-5.0) g/dL 08/09/23 08/09/23 Range/Units 04:42 05:17 WBC (3.8-10.6) k/uL MCHC (31.0-37.0) g/dL Plt Count (150-450) k/uL Neutrophils # (1.3-7.7) k/uL Lymphocytes # (1.0-4.8) k/uL APTT (22.0-30.0) sec ABG pH 7.46 H (7.35-7.45) ABG pCO2 46 H (35-45) mmHg ABG pO2 122 H (83-108) mmHg ABG HCO3 33 H (21-25) mmol/L ABG Total CO2 34 H (19-24) mmol/L ABG O2 Saturation 99.1 H (94-97) % Sodium (137-145) mmol/L Chloride (98-107) mmol/L Carbon Dioxide (22-30) mmol/L BUN (7-17) mg/dL Creatinine (0.52-1.04) mg/dL Glucose (74-99) mg/dL Plasma Lactic Acid Jaime 2.5 H* (0.7-2.0) mmol/L Calcium (8.4-10.2) mg/dL AST (14-36) U/L ALT (4-34) U/L Troponin I (0.000-0.034) ng/mL Total Protein (6.3-8.2) g/dL Albumin (3.5-5.0) g/dL Assessment and Plan Assessment: * Cardiac arrest with prolonged downtime of between 20 to 30 minutes. Patient showing signs of anoxic encephalopathy. * Acute hypoxic respiratory failure, due to cardiac arrest, on mechanical ventilation. * Abnormal EEG with evidence of burst suppression pattern. Some myoclonic twitches noted, more frequent with activating procedure. * Elevated D-dimer * Elevated troponins * Elevated liver enzymes * Atrial fibrillation * Hypertension * Hyperlipidemia * COPD * CHF Plan: Stat EEG was performed, and preliminary report revealed severely abnormal with evidence of burst suppression pattern. The bursts consisted of high amplitude single sharp and slow wave occurring every 1 to 5 seconds. In between there is completely suppressed, isoelectric pattern. Patient was given Ativan 2 mg IV, after which the amplitude of this epileptiform activity decreased, and the periods of suppression increased to 5 to 9 seconds. The background did not improve. 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 Follow-up EEG, perhaps prolonged EEG recommended, if clinically indicated. * Patient given Keppra 1500 mg x 1 dose, and will be maintained on 1500 mg twice daily. * Initial CT head showed no acute process * Patient may need repeat CT head and EEG, if the patient's family prefers continuing full care. * Patient's myoclonic twitches has resolved since given Ativan and Keppra. * Patient has elevated D-dimer, and cardiology concerned about PE. Patient also has atrial fibrillation. Cardiology recommended heparin. Neurologically, it is high risk, but possibly benefits outweigh the risks. * There were no family members present at the time of today's evaluation Time with Patient: Greater than 30 (35 minutes were spent evaluating this patient today)
--- NOTE | 2023-08-09 14:28 | P.PN ---
Subjective Progress Note Date: 08/09/23 patient is a 88-year-old lady with past medical history significant for COPD, atrial fibrillation, hypertension, dyslipidemia who presented to to the ER for cardiac arrest. Most of the history has been taken from the electronic medical records. Patient was found unresponsive by family at home. EMS was immediately called, according to chart downtime is somewhere between 20 to 30 minutes. EMS arrived [facility], CPR was initiated and ROSC was achieved. Patient was intubated and brought to the ER.Initial lab work done in the ER showed WBC 12.7, hemoglobin 11.8, D-dimer 12.07, sodium 1.9, potassium 4.5, BUN 15, creatinine 0.66, lactate 5.3, phosphorus 4.8, AST 178, ALT 109, troponin 0.041, TSH 12.4 UA negative for infection CT brain done showed no acute hemorrhage, hydrocephalus or mass effect Chest x-ray done in the ERBilateral pleural effusions, larger on the left, moderate amount of airspace opacities in both lungs more on the right suggest pneumonia Patient admitted to ICU under medicine service 08/08. Patient seen and examined. Patient continues to be intubated. Family has decided to proceed with comfort care and go for terminal wean REVIEW OF SYSTEMS: Review of system cannot be obtained as patient currently intubated and sedated PHYSICAL EXAMINATION: GENERAL: The patient is intubated HEENT: Pupils are round and equally reacting to light. CARDIOVASCULAR: S1 and S2 present. No murmurs, rubs, or gallops. PULMONARY: Coarse breath sound bilaterally, no wheeze ABDOMEN: Soft, nontender, nondistended, normoactive bowel sounds. No palpable organomegaly. MUSCULOSKELETAL: No joint swelling or deformity. EXTREMITIES: No cyanosis, clubbing, or pedal edema. NEUROLOGICAL: Intubated, occasional jerking movement of lower extremities noticeable SKIN: No rashes. Assessment and plan Acute hypoxic respiratory failure Cardiac arrest A-fib with RVR Hyponatremia Elevated troponin Lactic acidosis elevated D-dimer Acute transaminitis Monitor vital signs Monitor CBC Monitor CMP continue vent management Aggressive bronchopulmonary hygiene continue pharmacy dose heparin Continue amiodarone drip Continue IV antibiotics Pulmonology following Cardiology following Neurology following Family deciding to proceed with comfort care, patient to go for terminal wean once family is at bedside Labs and medication were reviewed.. Continue same treatment. Continue with symptomatic treatment. Resume home medication. Monitor labs and vitals. DVT and GI prophylaxis. Further recommendations as per clinical course of the patient Dictation was produced using [employer] dictation software. please excuse any gramm atical, word or spelling errors. Objective - Vital Signs Vital signs: Vital Signs Temp 98.8 F 08/09/23 08:00 Pulse 138 H 08/09/23 10:45 Resp 27 H 08/09/23 10:45 BP 108/72 08/09/23 10:45 Pulse Ox 100 08/09/23 10:45 FiO2 35 08/09/23 12:12 Intake & Output 08/08/23 08/09/23 08/09/23 18:59 06:59 18:59 Intake Total 461.154 115.120 Output Total 205 45 Balance -205 416.154 115.120 Intake: Intake, IV Titration 461.154 115.120 Amount Amiodarone 450 mg In 243.338 Dextrose 5% in Water 250 ml @ 0.5 MG/MIN 16.667 mls/hr IV .Q15H [facility] Rx#: [id number] Heparin Sod,Pork in 0.45% 117.816 53.382 NaCl 25,000 unit In 0.45 % NaCl 1 250ml.bag @ 12 UNITS/KG/HR 7.076 mls/hr IV .Q24H [facility] Rx#: [id number] propofoL 1,000 mg In 100.000 61.738 Empty Bag 1 bag @ 15 MCG/ KG/MIN 5.307 mls/hr IV . [id number] [facility] Rx#:[id number] Output: Urine 205 45 Uretheral (Ramos) 120 45 - Labs CBC & Chem 7: 08/09/23 06:56 08/09/23 06:56 Labs: Abnormal Lab Results - Last 24 Hours (Table) 08/08/23 08/08/23 08/08/23 Range/Units 17:38 17:38 20:17 WBC (3.8-10.6) k/uL MCHC (31.0-37.0) g/dL Plt Count (150-450) k/uL Neutrophils # (1.3-7.7) k/uL Lymphocytes # (1.0-4.8) k/uL APTT 67.7 H (22.0-30.0) sec ABG pH (7.35-7.45) ABG pCO2 (35-45) mmHg ABG pO2 (83-108) mmHg ABG HCO3 (21-25) mmol/L ABG Total CO2 (19-24) mmol/L ABG O2 Saturation (94-97) % Sodium (137-145) mmol/L Chloride (98-107) mmol/L Carbon Dioxide (22-30) mmol/L BUN (7-17) mg/dL Creatinine (0.52-1.04) mg/dL Glucose (74-99) mg/dL Plasma Lactic Acid Jaime 3.2 H* (0.7-2.0) mmol/L Calcium (8.4-10.2) mg/dL AST (14-36) U/L ALT (4-34) U/L Troponin I 0.518 H* (0.000-0.034) ng/mL Total Protein (6.3-8.2) g/dL Albumin (3.5-5.0) g/dL 08/08/23 08/09/23 08/09/23 Range/Units 22:21 01:36 01:36 WBC 23.4 H (3.8-10.6) k/uL MCHC (31.0-37.0) g/dL Plt Count 148 L (150-450) k/uL Neutrophils # 22.1 H (1.3-7.7) k/uL Lymphocytes # 0.4 L (1.0-4.8) k/uL APTT (22.0-30.0) sec ABG pH (7.35-7.45) ABG pCO2 (35-45) mmHg ABG pO2 (83-108) mmHg ABG HCO3 (21-25) mmol/L ABG Total CO2 (19-24) mmol/L ABG O2 Saturation (94-97) % Sodium (137-145) mmol/L Chloride (98-107) mmol/L Carbon Dioxide (22-30) mmol/L BUN (7-17) mg/dL Creatinine (0.52-1.04) mg/dL Glucose (74-99) mg/dL Plasma Lactic Acid Jaime 3.9 H* 3.8 H* (0.7-2.0) mmol/L Calcium (8.4-10.2) mg/dL AST (14-36) U/L ALT (4-34) U/L Troponin I (0.000-0.034) ng/mL Total Protein (6.3-8.2) g/dL Albumin (3.5-5.0) g/dL 08/09/23 08/09/23 08/09/23 Range/Units 04:38 04:38 04:38 WBC 21.6 H (3.8-10.6) k/uL MCHC 30.3 L (31.0-37.0) g/dL Plt Count 132 L (150-450) k/uL Neutrophils # 20.5 H (1.3-7.7) k/uL Lymphocytes # 0.4 L (1.0-4.8) k/uL APTT 84.2 H (22.0-30.0) sec ABG pH (7.35-7.45) ABG pCO2 (35-45) mmHg ABG pO2 (83-108) mmHg ABG HCO3 (21-25) mmol/L ABG Total CO2 (19-24) mmol/L ABG O2 Saturation (94-97) % Sodium 130 L (137-145) mmol/L Chloride 96 L (98-107) mmol/L Carbon Dioxide 31 H (22-30) mmol/L BUN 27 H (7-17) mg/dL Creatinine 1.08 H (0.52-1.04) mg/dL Glucose 196 H (74-99) mg/dL Plasma Lactic Acid Jaime (0.7-2.0) mmol/L Calcium 8.3 L (8.4-10.2) mg/dL AST 105 H (14-36) U/L ALT 93 H (4-34) U/L Troponin I (0.000-0.034) ng/mL Total Protein 4.9 L (6.3-8.2) g/dL Albumin 2.7 L (3.5-5.0) g/dL 08/09/23 08/09/23 08/09/23 Range/Units 04:42 05:17 06:56 WBC (3.8-10.6) k/uL MCHC (31.0-37.0) g/dL Plt Count (150-450) k/uL Neutrophils # (1.3-7.7) k/uL Lymphocytes # (1.0-4.8) k/uL APTT (22.0-30.0) sec ABG pH 7.46 H (7.35-7.45) ABG pCO2 46 H (35-45) mmHg ABG pO2 122 H (83-108) mmHg ABG HCO3 33 H (21-25) mmol/L ABG Total CO2 34 H (19-24) mmol/L ABG O2 Saturation 99.1 H (94-97) % Sodium 129 L (137-145) mmol/L Chloride 93 L (98-107) mmol/L Carbon Dioxide 31 H (22-30) mmol/L BUN 29 H (7-17) mg/dL Creatinine 1.22 H (0.52-1.04) mg/dL Glucose 191 H (74-99) mg/dL Plasma Lactic Acid Jaime 2.5 H* (0.7-2.0) mmol/L Calcium 8.3 L (8.4-10.2) mg/dL AST 114 H (14-36) U/L ALT 102 H (4-34) U/L Troponin I (0.000-0.034) ng/mL Total Protein 5.2 L (6.3-8.2) g/dL Albumin 2.9 L (3.5-5.0) g/dL 08/09/23 Range/Units 06:56 WBC 24.2 H (3.8-10.6) k/uL MCHC 30.2 L (31.0-37.0) g/dL Plt Count (150-450) k/uL Neutrophils # 23.0 H (1.3-7.7) k/uL Lymphocytes # 0.5 L (1.0-4.8) k/uL APTT (22.0-30.0) sec ABG pH (7.35-7.45) ABG pCO2 (35-45) mmHg ABG pO2 (83-108) mmHg ABG HCO3 (21-25) mmol/L ABG Total CO2 (19-24) mmol/L ABG O2 Saturation (94-97) % Sodium (137-145) mmol/L Chloride (98-107) mmol/L Carbon Dioxide (22-30) mmol/L BUN (7-17) mg/dL Creatinine (0.52-1.04) mg/dL Glucose (74-99) mg/dL Plasma Lactic Acid Jaime (0.7-2.0) mmol/L Calcium (8.4-10.2) mg/dL AST (14-36) U/L ALT (4-34) U/L Troponin I (0.000-0.034) ng/mL Total Protein (6.3-8.2) g/dL Albumin (3.5-5.0) g/dL Microbiology - Last 24 Hours (Table) 08/08/23 02:17 Gram Stain - Preliminary Sputum Sputum Culture - Preliminary Gram Neg Bacilli
[2023-08-09 16:25] VITALS: BP 100/61; PULSE 152; RESP 12; TEMP 99
[2023-08-09] MEDS: SCOPOLAMINE 1 MG/72 HR PATCH TRANSDERM SCH (16:49)
[2023-08-10] MEDS: MORPHINE SULFATE (100 MG/2 ML) 100 MG in SODIUM CHLORIDE 0.9% 100 ML IV SCH (09:39)
--- NOTE | 2023-08-10 12:16 | P.PN ---
Subjective Progress Note Date: 08/10/23 patient is a 88-year-old lady with past medical history significant for COPD, atrial fibrillation, hypertension, dyslipidemia who presented to to the ER for cardiac arrest. Most of the history has been taken from the electronic medical records. Patient was found unresponsive by family at home. EMS was immediately called, according to chart downtime is somewhere between 20 to 30 minutes. EMS arrived [facility], CPR was initiated and ROSC was achieved. Patient was intubated and brought to the ER.Initial lab work done in the ER showed WBC 12.7, hemoglobin 11.8, D-dimer 12.07, sodium 1.9, potassium 4.5, BUN 15, creatinine 0.66, lactate 5.3, phosphorus 4.8, AST 178, ALT 109, troponin 0.041, TSH 12.[address] for infection CT brain done showed no acute hemorrhage, hydrocephalus or mass effect Chest x-ray done in the ERBilateral pleural effusions, larger on the left, moderate amount of airspace opacities in both lungs more on the right suggest pneumonia Patient admitted to ICU under medicine service 08/08. Patient seen and examined. Patient continues to be intubated. Family has decided to proceed with comfort care and go for terminal wean 08/09. Patient seen and examined. Currently on comfort care measures. REVIEW OF SYSTEMS: Review of system cannot be obtained as patient is comfort care measures PHYSICAL EXAMINATION: GENERAL: The patient is obtunded HEENT: Pupils are round and equally reacting to light. CARDIOVASCULAR: S1 and S2 present. Tachycardic PULMONARY: Coarse breath sound bilaterally, no wheeze ABDOMEN: Soft, nontender, nondistended, normoactive bowel sounds. No palpable organomegaly. MUSCULOSKELETAL: No joint swelling or deformity. EXTREMITIES: No cyanosis, clubbing, or pedal edema. NEUROLOGICAL: Unresponsive SKIN: No rashes. Assessment and plan Acute hypoxic respiratory failure Cardiac arrest A-fib with RVR Hyponatremia Elevated troponin Lactic acidosis elevated D-dimer Acute transaminitis Monitor vital signs CODE STATUS is no code. Continue comfort care measures Labs and medication were reviewed.. Continue same treatment. Continue with symptomatic treatment. Resume home medication. Monitor labs and vitals. DVT and GI prophylaxis. Further recommendations as per clinical course of the patient Dictation was produced using [employer] dictation software. please excuse any grammatical, word or spelling errors. Objective - Vital Signs Vital signs: Vital Signs Temp 99.0 F 08/09/23 16:07 Pulse 152 H 08/09/23 16:07 Resp 12 08/09/23 16:07 BP 100/61 08/09/23 16:07 Pulse Ox 71 L 08/09/23 16:07 FiO2 35 08/09/23 13:00 Intake & Output 08/09/23 08/10/23 08/10/23 18:59 06:59 18:59 Intake Total 115.120 Output Total 115 100 Balance 0.120 -100 Weight 58.967 kg Intake: Intake, IV Titration 115.120 Amount Heparin Sod,Pork in 0.45% 53.382 NaCl 25,000 unit In 0.45 % NaCl 1 250ml.bag @ 12 UNITS/KG/HR 7.076 mls/hr IV .Q24H [facility] Rx#: [id number] propofoL 1,000 mg In 61.738 Empty Bag 1 bag @ 15 MCG/ KG/MIN 5.307 mls/hr IV . [id number] [facility] Rx#:[id number] Oral 0 Output: Urine 115 100 Uretheral (Ramos) 40 Other: Voiding Method Indwelling Catheter Indwelling Catheter - Labs CBC & Chem 7: 08/09/23 06:56 08/09/23 06:56 Labs: Microbiology - Last 24 Hours (Table) 08/08/23 02:17 Gram Stain - Preliminary Sputum Sputum Culture - Preliminary Gram Neg Bacilli
--- NOTE | 2023-08-10 13:08 | P.PN ---
Subjective Progress Note Date: 08/10/23 This is an 88-year-old female, known history of COPD, hypertension, dyslipidemia, patient apparently had a witnessed cardiac arrest at home, EMS responded to the scene, patient was intubated in the field, patient received CPR, not clearly known as to the length of time of CPR. According to the daughter it was at least 10 minutes. Patient received epinephrine, apparently she was found unresponsive at home. Upon arrival to the ER, patient was in atrial fibrillation, but controlled rate, patient was kept on mechanical ventilation, and this consult was initiated. Patient is now on assist-control rate of 24 tidal volume 350 FiO2 50% and PEEP of 5 ABG showed a pO2 of more than 400 pCO2 of 64 pH of 7.32. Hence I kept her on the same ventilator settings except FiO2 was cut down to 45%, rate was down to 20 and her flow rates were adjusted because of her relatively high peak airway pressure in the low 40s while in the ER. Patient is receiving IV fluids in the form of 0.9 normal saline at 75 cc/h. Patient had her first set of troponin came back abnormal, D- dimer also came back abnormal, chest x-ray is consistent with congestive heart failure and bilateral pleural effusions initially required norepinephrine for hypotension, but during my evaluation, the patient was normotensive and norepine phrine was on hold. Patient was started on amiodarone to control her atrial fibrillation. CT of the brain showed no evidence of active disease. WBC count showed leukocytosis with WBC of 12.7 hemoglobin 11.8 D-dimer was 12.07. pO2 more than 400 pCO2 64 pH of 7.32 BNP level is 4350. AST and ALT are elevated. Lactic acid on admission was 3.9 considering her atrial fibrillation and considering her elevated D-dimer, patient was placed on heparin per cardiology. Empirically patient was also placed on antibiotics in the form of Rocephin and Zithromax, and placed on bronchodilators for her underlying COPD as well as Solu-Medrol Patient was reevaluated today on 08/09/2023, remains in the ER waiting for ICU bed, remains intubated and mechanically ventilated. Patient is on assist- control rate of 20 tidal volume 350 FiO2 40% and PEEP of 5. Patient is still on amiodarone at 0.5 mg/min, however remains in atrial fibrillation with RVR rate as high as 150. Patient is on propofol 15 mcg/kg/min and I increased the propofol up to 25 mcg/kg/min just to make sure that the patient is synchronous with the ventilator. ABG showed a pO2 of 122 pCO2 46 pH of 7.46, hence FiO2 was cut down to 35%. Chest x-ray is showing worsening bilateral pneumonia/airspace disease, also worsening interstitial edema and I am recommending clindamycin 600 mg IV piggyback every 8 hours. Patient remains on heparin drip, she remains on amiodarone drip,WBC count is up to 24.2 hemoglobin is 11.7. Sodium is 129 po tassium 4.3 bicarb is 31 BUN 29 creatinine 1.22 slight worsening of the creatinine noted. EEG done yesterday showed severely abnormal EEG with presence of burst suppressed pattern, suggestive of generalized cerebral dysfunction seen with severe anoxic or toxic metabolic encephalopathies. Also the EEG showed cortical irritability and tendency for seizures, hence the patient was placed on Keppra as per neurology on the case. The patient is seen today August 10, 2023 in follow-up on the regular medical floor. Her family has decided to withdraw care and place her in hospice/comfort care. She is currently resting comfortably in bed. She is currently on 2 L nasal cannula. He has been initiated on night morphine drip. Initiated on scopolamine patch. Her family is at the bedside. Questions were answered. Objective - Vital Signs Vital signs: Vital Signs Temp 99.0 F 08/09/23 16:07 Pulse 152 H 08/09/23 16:07 Resp 12 08/10/23 08:45 BP 100/61 08/09/23 16:07 Pulse Ox 71 L 08/09/23 16:07 FiO2 35 08/09/23 13:00 Intake & Output 08/09/23 08/10/23 08/10/23 18:59 06:59 18:59 Intake Total 115.120 Output Total 115 100 Balance 0.120 -100 Weight 58.967 kg Intake: Intake, IV Titration 115.120 Amount Heparin Sod,Pork in 0.45% 53.382 NaCl 25,000 unit In 0.45 % NaCl 1 250ml.bag @ 12 UNITS/KG/HR 7.076 mls/hr IV .Q24H [facility] Rx#: [id number] propofoL 1,000 mg In 61.738 Empty Bag 1 bag @ 15 MCG/ KG/MIN 5.307 mls/hr IV . [id number] [facility] Rx#:[id number] Oral 0 Output: Urine 115 100 Uretheral (Ramos) 40 Other: Voiding Method Indwelling Catheter Indwelling Catheter Indwelling Catheter - Exam GENERAL EXAM: Frail, weak 88-year-old female on 2 L nasal cannula,, comfortable in no apparent distress. HEAD: Normocephalic. EYES: Normal reaction of pupils, equal size. NOSE: Clear with pink turbinates. THROAT: No erythema or exudates. NECK: No masses, no JVD. CHEST: No chest wall deformity. LUNGS: Equal air entry with few scattered rhonchi. CVS: S1 and S2 normal with no audible murmur, regular rhythm. ABDOMEN: No hepatosplenomegaly, normal bowel sounds, no guarding or rigidity. SPINE: No scoliosis or deformity SKIN: No rashes CENTRAL NERVOUS SYSTEM: No focal deficits, tone is normal in all 4 extremities. EXTREMITIES: There is no peripheral edema. No clubbing, no cyanosis. Peripheral pulses are intact. - Labs CBC & Chem 7: 08/09/23 06:56 08/09/23 06:56 Labs: Microbiology - Last 24 Hours (Table) 08/08/23 02:17 Gram Stain - Preliminary Sputum Sputum Culture - Preliminary Gram Neg Bacilli Assessment and Plan Assessment: Acute cardiac arrest, with prolonged downtime with suspected significant anoxic brain injury Acute hypoxic respiratory failure secondary to cardiac arrest Acute congestive heart failure, seems to be mostly systolic in nature with mild LV dysfunction noted on the echocardiogram. And moderate pericardial effusion noted Possible aspiration pneumonia Elevated troponin Elevated D-dimer, thromboembolic disease is in the differential patient is on heparin Atrial fibrillation with RVR, on heparin and on amiodarone Acute transaminitis Multiple comorbid conditions Plan: The patient was seen and evaluated Family is present and have initiated hospice/comfort care Remains on a morphine drip Remains on oxygen supplement Remains on scopolamine patch Questions were answered Pulmonary will sign off This patient was seen independently by the pulmonary nurse practitioner addressing pulmonary issues I have personally seen and examined the patient, performed the documentation and the assessment and plan as written. Number of minutes spent on the visit: 23.
--- NOTE | 2023-08-15 10:39 | P.DS ---
Providers Date of admission: 08/08/23 03:52 Expected date of discharge: 08/10/23 Attending physician: Kalie Kapoor Consults: 08/08/23 03:49 Consult Physician Routine Consulting Provider: Teetee Rendon Consult Reason/Comments: icu Do you want consulting provider notified?: Yes Consult Physician Routine Consulting Provider: Brissa De Souza Consult Reason/Comments: afibRVR Do you want consulting provider notified?: Yes Consult Physician Urgent Consulting Provider: Mya Lentz Consult Reason/Comments: posturing Do you want consulting provider notified?: Yes Primary care physician: [facility] Course: Preliminary cause of Pneumonia with acute hypoxic respiratory failure likely aspiration Final diagnosis Acute hypoxic respiratory failure secondary to CHF exacerbation Cardiac arrest Concerns for anoxic brain injury with prolonged downtime A-fib with RVR Hyponatremia Elevated troponin Lactic acidosis elevated D-dimer Acute transaminitis No code Discharge disposition Patient has . According to nursing documentation, time of was 1418 on 08/10/2023. Please refer to other consultation notes for further HPI. Total time taken is greater than 35 minutes. Hospital course patient is a 88-year-old lady with past medical history significant for COPD, atrial fibrillation, hypertension, dyslipidemia who presented to to the ER for cardiac arrest. Most of the history has been taken from the electronic medical records. Patient was found unresponsive by family at home. EMS was immediately called, according to chart downtime is somewhere between 20 to 30 minutes. EMS arrived [place], CPR was initiated and ROSC was achieved. Patient was intubated and brought to the ER.Initial lab work done in the ER showed WBC 12.7, hemoglobi n 11.8, D-dimer 12.07, sodium 1.9, potassium 4.5, BUN 15, creatinine 0.66, lactate 5.3, phosphorus 4.8, AST 178, ALT 109, troponin 0.041, TSH 12.[address] negative for infection CT brain done showed no acute hemorrhage, hydrocephalus or mass effect Chest x-ray done in the ERBilateral pleural effusions, larger on the left, moderate amount of airspace opacities in both lungs more on the right suggest pneumonia Patient admitted to ICU under medicine service 08/08. Patient seen and examined. Patient continues to be intubated. Family has decided to proceed with comfort care and go for terminal wean 08/09. Patient seen and examined. Currently on comfort care measures. Per nursing staff and documentation, patient on comfort measures with family present at 1418 on 08/10/2023. The impression and plan of care has been dictated by Zoe Recio, Nurse Practitioner as directed. Dr. Mark Kingsley MD I have performed a history and examination and MDM of this patient, discussed the same with the dictator, and agree with the dictator's assessment and plan as written ,documented as a scribe. Based on total visit time, I have performed more than 50% of the visit. Patient Condition at Discharge: Poor Plan - Discharge Summary Discharge Rx Participant: No New Discharge Prescriptions: No Action Losartan Potassium 100 mg PO W/SUPPER Fluticasone/Umeclidin/Vilanter [Trelegy Ellipta 100-62.5-25] 1 puff INHALATION RT-DAILY Alendronate Sodium [Fosamax] 70 mg PO TU traZODone HCL [Desyrel] See Taper PO HS Furosemide [Lasix] 20 mg PO DAILY Cholecalciferol [Vitamin D3 (25 Mcg = 1000 Iu)] 25 mcg PO SUTUTHSA Metoprolol Tartrate [Lopressor] 50 mg PO DAILY Famotidine 20 mg PO HS Omeprazole [PriLOSEC] 40 mg PO AC-BID Apixaban [Eliquis] 5 mg PO BID Multivitamin [Multivitamins Adult Gummies] 2 tab PO DAILY Ferrous Sulfate [Iron (65 MG Elemental)] 325 mg PO MOWEFR Magnesium Oxide [Mag-Ox] 400 mg PO DAILY Ipratropium-Albuterol Nebulize [Duoneb 0.5 mg-3 mg/3 ml Soln] 3 ml INHALATION RT-TID Metoprolol Tartrate [Lopressor] 25 mg PO HS Discharge Medication List Alendronate Sodium [Fosamax] 70 mg PO TU 04/17/23 [History] Ferrous Sulfate [Iron (65 MG Elemental)] 325 mg PO MOWEFR 04/17/23 [History] Fluticasone/Umeclidin/Vilanter [Trelegy Ellipta 100-62.5-25] 1 puff INHALATION RT-DAILY 04/17/23 [History] Losartan Potassium 100 mg PO W/SUPPER 04/17/23 [History] Multivitamin [Multivitamins Adult Gummies] 2 tab PO DAILY 04/17/23 [History] Apixaban [Eliquis] 5 mg PO BID 08/08/23 [History] Cholecalciferol [Vitamin D3 (25 Mcg = 1000 Iu)] 25 mcg PO SUTUTHSA 08/08/23 [History] Famotidine 20 mg PO HS 08/08/23 [History] Furosemide [Lasix] 20 mg PO DAILY 08/08/23 [History] Ipratropium-Albuterol Nebulize [Duoneb 0.5 mg-3 mg/3 ml Soln] 3 ml INHALATION RT-TID 08/08/23 [History] Magnesium Oxide [Mag-Ox] 400 mg PO DAILY 08/08/23 [History] Metoprolol Tartrate [Lopressor] 25 mg PO HS 08/08/23 [History] Metoprolol Tartrate [Lopressor] 50 mg PO DAILY 08/08/23 [History] Omeprazole [PriLOSEC] 40 mg PO AC-BID 08/08/23 [History] traZODone HCL [Desyrel] See Taper PO HS 08/08/23 [History] Follow up Appointment(s)/Referral(s): Jennifer Martin MD [REFERRING] - 1-2 days Discharge Disposition: - Preliminary Cause of Preliminary Cause of : Pneumonia with acute hypoxic respiratory failure, likely aspiration
== END 2023-08-10 16:40 | disposition expired | DRG 296 ==
LOC: EC 01:45 → 2SICU 03:52 → 5NMEDONC 08-09 14:49
PROVIDERS: ADMIT Hospitalist; ATTEND Hospitalist
PROC: 5A1945Z Respiratory Ventilation, 24-96 Consecutive Hours (ICD-10-PCS; principal; 2023-08-07)
PROC: 3E033XZ Introduction of Vasopressor into Peripheral Vein, Percutaneous Approach (ICD-10-PCS; 2023-08-08)
DX: I46.9 Cardiac arrest, cause unspecified (principal); I50.21 Acute systolic (congestive) heart failure; J69.0 Pneumonitis due to inhalation of food and vomit; J96.01 Acute respiratory failure with hypoxia; I31.39 Other pericardial effusion (noninflammatory); G93.1 Anoxic brain damage, not elsewhere classified; E87.20 Acidosis, unspecified; I5A Non-ischemic myocardial injury (non-traumatic); E87.1 Hypo-osmolality and hyponatremia; I11.0 Hypertensive heart disease with heart failure; J44.9 Chronic obstructive pulmonary disease, unspecified; I48.91 Unspecified atrial fibrillation; Z51.5 Encounter for palliative care; Z66 Do not resuscitate; I47.10 Supraventricular tachycardia, unspecified; G25.3 Myoclonus; I95.9 Hypotension, unspecified; R74.01 Elevation of levels of liver transaminase levels; E78.5 Hyperlipidemia, unspecified; R01.1 Cardiac murmur, unspecified; W01.0XXA Fall on same level from slipping, tripping and stumbling without subsequent striking against object, initial encounter; Z79.01 Long term (current) use of anticoagulants; Z79.83 Long term (current) use of bisphosphonates; Z79.51 Long term (current) use of inhaled steroids; Z87.891 Personal history of nicotine dependence; Z79.899 Other long term (current) drug therapy; Z88.0 Allergy status to penicillin
CPT/HCPCS: 36415; 36600; 51702; 70450; 71045; 80053; 81003; 82805; 83605; 83735; 83880; 84100; 84443; 84484; 85025; 85379; 85610; 85730; 87070; 87077; 87186; 87205; 93005; 93306; 94002; 94640; 95822; 96365; 96366; 96367; 96368; 96375; 96376; 99291